=== PATIENT | female | born 1960 | race Caucasian/White ===

== ENCOUNTER 2022-07-17 00:52 | Observation (INO) | payer SELFPAY ==
[2022-07-17] VITALS (18 sets, daily range): BP systolic 126–165; BP diastolic 78–95; PULSE 98–124; RESP 16–25; TEMP 36.3–36.4; O2SAT 91–100; BMI 14.5
--- NOTE | 2022-07-17 | ECHO_ITS ---
Patient Info Name: Kamini Christina Age: 62 years : 1960 Gender: Female Ht: 62 in Wt: 79 lbs BSA: 1.24 m2 HR: 118 bpm BP: 153 / 89 mmHg Technical Quality: Good Exam Date: 07/17/2022 12:55 PM Exam Location: [facility] Patient Status: Outpatient Admit Date: 07/17/2022 Staff Ordering Physician: [employer] Specialist: Neida Nicholson RDCS Attending Provider: Luca Jensen MD Referring Physician: Donavan LOPEZ; Exam Type: CA echo doppler color flow Study Info Indications R06.02 - Shortness of breath Complete two-dimensional, color flow and Doppler transthoracic echocardiogram is performed. Summary 1. Complete two-dimensional, color flow and Doppler transthoracic echocardiogram is performed. 2. Left ventricular chamber dimension is mildly enlarged. 3. Left ventricular systolic function is globally mildly reduced, estimated at 45-50%. 4. There is mild concentric increased left ventricular wall thickness. 5. The left ventricular diastolic function is grade I diastolic dysfunction. 6. E/e' 16 is elevated. 7. Global longitudinal strain is abnormal at -10.3%. 8. Left atrial chamber dimension is moderately enlarged. 9. There is moderate mitral valve regurgitation. 10. There is trace tricuspid valve regurgitation. 11. Severe pulmonary hypertension, estimated pulmonary arterial systolic pressure is 60 mmHg. 12. Dilated inferior vena cava with >50% collapse upon inspiration consistent with elevated right atrial pressure, 10 mmHg. Left Ventricle E/e' 16 is elevated. Global longitudinal strain is abnormal at -10.3%. Left ventricular systolic function is globally mildly reduced, estimated at 45-50%. Left ventricular chamber dimension is mildly enlarged. There is mild concentric increased left ventricular wall thickness. The left ventricular diastolic function is grade I diastolic dysfunction. Right Ventricle Right ventricular systolic function is normal and with normal TAPSE 2.3 cm. Right ventricular chamber dimension is normal. Left Atria Left atrial chamber dimension is moderately enlarged. Right Atria Right atrial chamber dimension is normal. Aortic Valve The aortic valve is trileaflet. There is no aortic valve stenosis. There is no aortic valve regurgitation. Pulmonic Valve There is no pulmonic regurgitation. Mitral Valve There is no mitral valve stenosis. There is moderate mitral valve regurgitation. Tricuspid Valve There is trace tricuspid valve regurgitation. Severe pulmonary hypertension, estimated pulmonary arterial systolic pressure is 60 mmHg. Pericardium/Pleural There is no pericardial effusion. Inferior Vena Cava Dilated inferior vena cava with >50% collapse upon inspiration consistent with elevated right atrial pressure, 10 mmHg. Aorta The aortic root size at the sinus of Valsalva is normal. Left Ventricular Outflow Tract Name Value Normal LVOT 2D LVOT Diameter 1.9 cm LVOT Doppler LVOT Peak Gradient 4 mmHg LVOT Mean Gradient 2 mmHg LVOT VTI 15 cm
--- NOTE | ~2022-07-17 | CT_ITS ---
CT Scan of the Chest without Contrast: Clinical Indication: Shortness of breath Technique: Contiguous sections were acquired throughout the chest without intravenous contrast. Dose reduction technique was used on this scan by utilizing automated exposure control and iterative recon struction technique. The dose-length product (DLP) was 138.40 mGy-cm. Findings: There is no evidence of any significant mediastinal, hilar or axillary lymphadenopathy. Extensive cor onary artery calcifications are present. There are atherosclerotic calcifications of the aorta. No pe ricardial effusion. Small right pleural effusion present. No left pleural effusion. Severe emphysema present. No pulmonary nodule identified. Images through the upper abdomen reveal no abnormalities. Impression: Severe emphysema. Small right pleural effusion. Reviewed, dictated and finalized at location . ECTION SPECIALIST Impression: Severe emphysema. Small right pleural effusion.
--- NOTE | ~2022-07-17 | XR_ITS ---
Portable chest x-ray Comparison: 01/14/2016 Clinical History: Cough, shortness of breath Findings: There is no acute consolidation or pleural effusion. Probable COPD. Cardiomediastinal radha houette is stable. Bones and soft tissues are unremarkable. Impression: COPD pattern. No consolidation or pleural effusion. Reviewed, dictated and finalized at [facility]. ING ASSOCIATE Impression: COPD pattern. No consolidation or pleural effusion.
--- NOTE | 2022-07-17 00:58 | ECG_ITS ---
Measurements Intervals [place] Rate: 120 P: 85 DE: 128 QRS: 90 QRSD: 89 T: 83 QT: 316 QTc: 448 Interpretive Statements SINUS TACHYCARDIA LEFT VENTRICULAR HYPERTROPHY WITH SECONDARY REPOLARIZATION ABNORMALITY NONSPECIFIC ST & T-WAVE ABNORMALITY ABNORMAL RHYTHM ECG NO PREVIOUS ECG AVAILABLE FOR COMPARISON Electronically Signed On 07-17-2022 15:20:57 [employer] by Herb Avalos M.D.
--- NOTE | 2022-07-17 00:59 | ED.GENADULT ---
HPI - General Adult General Chief complaint: Shortness of Breath/Dyspnea Stated complaint: sob Source: EMS and RN notes reviewed History of Present Illness HPI narrative: Patient presents emergency department from home via EMS for shortness of breath. History is per patient as well as EMS. Patient states she has been feeling short of breath for the past 1 week states it worsened this evening. States she does have a history of COPD and currently smokes cigarettes does not require any home oxygen at home. Patient states this evening she became severely more short of breath when EMS arrived the patient was noted to be tripoding and satting in the low 80s. At that time she is given 125 mg of Solu-Medrol as well as an albuterol treatment and states she is feeling much better at this time. She denies any fevers or chills, chest pain abdominal pain nausea or vomiting. Related Data Allergies Allergy/AdvReac Type Severity Reaction Status Date / Time No Known Allergies Allergy Unverified 01/14/16 12:36 Review of Systems Review of Systems: Gen.: Denies fevers or chills ENT: Denies congestion Respiratory: See HPI CV: Denies chest pain or palpitations GI: Denies abdominal pain nausea, emesis or diarrhea Musculoskeletal: Denies back pain or muscle pain Neuro: Denies numbness, tingling, weakness or focal weakness Skin: Denies rash Except as documented, all other systems reviewed and negative [facility] Past Medical History Medical History (Updated 07/17/22 @ 02:49 by Jarad Lobo DO) COPD (chronic obstructive pulmonary disease) Social History Social History (Updated 07/17/22 @ 01:00 by Jarad Lobo DO) Smoking status: Current every day smoker Exam Narrative: APPEARANCE: Mild respiratory distress nontoxic, resting in bed EYES: EOMI HEENT: Normocephalic, atraumatic, OMM RESPIRATORY: Mild respiratory distress, wheezing in the bilateral upper lung edward with decreased breath sounds at bilateral lung bases no rhonchi CARDIOVASCULAR: Tachycardic and regular without murmurs rubs or gallops. ABDOMINAL: Soft, nontender, nondistended, no rebound or guarding MUSCULOSKELETAl: Moves all extremities. No clubbing, cyanosis or edema. NEURO: Awake and alert. Following commands, speech normal, no focal deficits SKIN:: Warm, dry. No rashes lesions or abrasions PSYCHIATRIC: Normal affect/mood, Course Course Emergency Course: Upon initial presentation patient been on BiPAP was weaned off and breathing treatment given is now on 3 L nasal cannula Discussed with Dr. Ye for hospitalist service presentation work-up agrees with admission at this time Discussed with patient and family results of workup and diagnosis. Discussed need for admission. Patient and family understand and agree to current treatment plan Vital Signs Vital signs: Vital Signs Pulse Rate 120 H 07/17/22 00:52 Pulse Rate 114 H 07/17/22 02:30 Respiratory Rate 20 07/17/22 02:30 Blood Pressure 154/90 H 07/17/22 02:30 Pulse Oximetry 98 07/17/22 02:30 Oxygen Delivery Nasal Cannula 07/17/22 01:25 Oxygen Flow Rate 3 07/17/22 01:25 Medical Decision Making MDM Narrative Medical decision making narrative: Patient presents for acute dyspnea and was noted to be tripoding with oxygen saturations in the 80s on room air given Solu-Medrol by EMS and breathing treatment initially placed on BiPAP on ED arrival the patient is given additional breathing treatment has been breathing better and weaned down to 3 L nasal cannula chest x-ray shows no acute process the patient does have a history of's tobacco use feel this is likely acute exacerbation of COPD will admit at this time with further inpatient evaluation Differential Diagnosis Differential Diagnosis: Differential diagnosis includes pneumonia COVID-19 pulmonary embolism COPD Vital Signs Vital Signs: Vital Signs Pulse Rate 120 H 07/17/22 00:52 Pulse Rate 114 H 07/17/22 02:30 Respi
[2022-07-17] MEDS: ALBUTEROL SULFATE NEB 2.5 MG/3 ML INH INHALATION (01:02)
[2022-07-17] MEDS: IPRATROPIUM BR 0.02% INH SOLN 0.5 MG/2.5 ML VIAL INHALATION ×4 (01:02→20:53)
[2022-07-17 01:13] LABS: Base Excess ABG -2.9 mEq/l (+/-2.0); Fractional Inspired Oxygen 100 %; HCO3 ABG 21.6 mEq/l (22.0-26.0); Methemoglobin ABG 0.3 %THb (0-1.5); Oxygen Content ABG 11.8 %vol (16.0-22.0); Oxygen Saturation ABG 98.5 % (95.0-100.0); Oxyhemoglobin 94.6 % THb (90.0-100.0); PCO2 ABG 35.7 mmHg (35.0-45.0); PO2 ABG 123.3 mmHg (80.0-100.0); PO2 FiO2 Ratio Arterial Blood 1.23 %; Reduced Hemoglobin 2.1 %THb (0-5.0); Site Drawn RIGHT RADIAL; Total Hemoglobin 8.7 g/dL (12.0-18.0); pH ABG 7.399 (7.350-7.450)
[2022-07-17 01:14] LABS: Device OTHER DEVICE; Modified Allen's Test Pass
[2022-07-17 01:55] LABS: Hematocrit 29.2 % (37.0-47.0); Hemoglobin 8.1 g/dL (12.0-15.0); Mean Corpuscular HGB Conc 27.7 g/dl (32-36); Mean Corpuscular Hemoglobin 19.3 pg (26-34); Mean Corpuscular Volume 69.5 fl (80-100); Mean Platelet Volume 9.8 fl (7.4-10.4); Platelet Count Result 242 k/mm3 (150-375); Red Cell Distribution Width 17.5 % (11.5-14.5); White Blood Count 9.2 K/mm3 (4.5-10.0)
[2022-07-17 02:06] LABS: Alanine Aminotransferase 28 U/L (6-35); Albumin Level 3.9 g/dL (3.5-5.1); Alkaline Phosphatase 89 U/L (38-126); Anion Gap 6 mmol/L (8-16); Aspartate Amino Transferase 45 U/L (14-36); Bilirubin,Total 0.4 mg/dL (0.2-1.3); Blood Urea Nitrogen 17 mg/dL (7-17); Calcium 8.4 mg/dL (8.4-10.2); Carbon Dioxide 27 mmol/L (22-30); Chloride 106 mmol/L (98-107); Estimated CRCL calculation 34 ml/min; Estimated Glomerular Filt Rate > 60; Glucose 117 mg/dL (65-110); Potassium 3.9 mmol/L (3.4-5.0); Sodium 139 mmol/L (137-145)
[2022-07-17 02:13] LABS: INR 1.1; Prothrombin Time 13.3 Seconds (11.1-14.7)
[2022-07-17 02:14] LABS: Partial Thromboplastin Time 28.2 SECONDS (22.3-36.8)
[2022-07-17 02:31] LABS: Influenza A QL RT-PCR Negative (Negative); Influenza B QL RT-PCR Negative (Negative); RSV RNA, RT-PCR Negative (Negative); SARS-CoV-2 RNA PCR Negative
[2022-07-17 03:32] LABS: Anisocytosis 1+ (NORMAL); Blastocytes 2 %; Eosinophils Absolute Manual 0.09 K/mm3 (0.02-0.5); Eosinophils Percent Manual 1 % (0-4); Lymphocytes Absolute Manual 2.57 K/mm3 (1.1-4.5); Metamyelocytes Percent 1 %; Neutrophils Percent Manual 68 % (46-73); Platelet Estimate Adequate (Adequate); Total Cells Counted 100
[2022-07-17 03:33] LABS: Hypersegmented Neutrophils Present; Hypochromasia 2+ (NORMAL); Macrocytosis 1+ (NORMAL); Microcytosis 2+ (NORMAL); Ovalocytes 1+ (NORMAL); Poikilocytosis 2+ (NORMAL); Schistocytes 1+ (NORMAL)
[2022-07-17 03:34] LABS: Stomatocytes 2+ (NORMAL)
[2022-07-17] MEDS: methylPREDNISolone SOD SUCC 125 MG VIAL 60 MG IV PUSH (06:03)
--- NOTE | 2022-07-17 09:45 | PM.IMHP ---
H&P: HPI History of Present Illness Date/Time: 07/17/22 0748 Chief Complaint: Patient is 62-year-old female with past medical history of COPD, emphysema CHF, GERD who presented to the ED with complaints of increased shortness of breath. Patient has been having issues for about a week with shortness of breath. She stated that it got worse due to her changes in cough. Patient stated that she always has a cough which is normally productive and she get anything up and spit out. However Wednesday of last week she was lying down on the couch and could not get anything up and coughed for 1.5 hours. She stated that she was so short of breath from coughing that and she was unable to catch her breath. She stated that continued for the next 4-5 nights until last night she felt like someone put a pillow over her face and was trying to suffocate her. She stated that she can gets some stuff up but she has to really work for it. She does endorse increased wheezes and becoming more dyspneic with mild activity. She does state whenever she gets sputum up that is white in color. She denies any chest pain, nausea, vomiting, diarrhea or constipation. She did state that she was having some night sweats and would wake up wet in the middle the night. She denies any appetite changes and states that she has a good appetite can eat anything that is better from over. She did state that when she was picked up yesterday that her oxygen saturations in the 80s she was unable to communicate or finish sentences and had been tripoding as if she sat up straight or lay down she could not breathe at all. She denies any lightheadedness, dizziness, falls, syncope. Patient is a smoker and she stated that she smoked 3 packs per day for 35 years however 9 years ago she moved in with her daughter and cut it back to 1 pack per day. Patient stated that she does not really do anything except for sit on the back porch and smokes cigarettes and playing games. She also stated that she know she needs to quit and she is going to quit. We did talk about many different ways of smoking cessation including Chantix, patches, distraction. Patient stated that she would really like to try patches because she is worried about the side effects about the things. Currently patient was able to go to room air and she is doing well with breathing. Chest x-ray did show COPD with no consolidation or pleural effusion. After review of the image patient does have elongated lungs and flattened diaphragm. CT indicated severe COPD and emphysema. Multiple bullae present in the CT as well. Patient is being admitted to the hospitalist service and observation Review of Systems Review of Systems: All systems reviewed & are unremarkable except as noted in HPI and below PMFSH Past Medical History Medical History (Updated 07/17/22 @ 14:29 by LAURA Conti) COPD (chronic obstructive pulmonary disease) Family History Family History (Updated 07/17/22 @ 04:54 by Anika Dickens RN) Other Unknown family medical history Social History Social History (Updated 07/17/22 @ 01:00 by Jarad Lobo DO) Smoking packs per day: 1 Smoking cigarettes per day: 20.0 Smoking status: Current every day smoker Tobacco type: cigarettes Second hand tobacco smoke exposure: Yes Alcohol intake: never Substance use: current Substance use type: marijuana Last use: 07/17/22 Lack of Transportation: No Lack of Food: Never True Current Housing: I Have Housing Concerned About Future Housing: No Difficulty Paying Gas/Electric Bills: No Difficulty Paying for Meds: No Currently Unemployed: No Education: High School Diploma/GED Difficulty w/ Childcare or Family Care: No Spiritual care concerns: No Meds Home Medications and Allergies Allergies Allergy/AdvReac Type Severity Reaction Status Date / Time No Known Allergies Allergy Unverified 01/14/16 12:36 Vital Signs Vital S
[2022-07-17 10:47] LABS: Immature Reticulocyte Fraction 25.4 % (3.0-15.9); Reticulocyte Hemoglobin Conten 19.1 pg (28.2-35.7); Reticulocyte Percent 1.84 % (0.7-4.3); Reticulocytes Absolute 0.08 B/L (32.2-175.7)
[2022-07-17 10:52] LABS: Transferrin 346 mg/dL (206-381)
[2022-07-17 12:22] LABS: Folic Acid 8.1 ng/mL (2.76->20)
[2022-07-17 13:18] LABS: Iron < 10 ug/dL (37-170)
[2022-07-17 13:46] LABS: Ferritin 4.95 ng/mL (11.1-264); Thyroid Stimulating Hormone Reflex 0.318 uIU/mL (0.465-4.68)
[2022-07-17] MEDS: AZITHROMYCIN 250 MG TABLET 500 MG PO (15:04)
[2022-07-17 15:14] LABS: Percent Iron Saturation < 2 % (20-50)
[2022-07-17] MEDS: FERROUS SULFATE 324 MG TABLET PO (16:34)
[2022-07-17] MEDS: ACETAMINOPHEN/ASPIRIN/CAFFEINE 250-250-65 MG TABLET 1 TABLET PO (20:36)
[2022-07-17 22:50] LABS: Free T4 Free Thyroxine Reflex 1.14 ng/dL (0.78-2.19)
[2022-07-17 23:33] LABS: Total Triiodothyronine (T3) 0.93 NG/ML (0.97-1.69)
[2022-07-18] VITALS (15 sets, daily range): BP systolic 123–146; BP diastolic 77–98; PULSE 100–121; RESP 14–20; TEMP 36.4–36.8; O2SAT 96–100
[2022-07-18] MEDS: IPRATROPIUM BR 0.02% INH SOLN 0.5 MG/2.5 ML VIAL INHALATION ×4 (03:00→21:19)
[2022-07-18 07:20] LABS: Basophils Percent Auto 0.3 % (0.2-1.2); Hematocrit 24.5 % (37.0-47.0); Immature Granulocyte Absolute 0.05 K/mm3 (0.00-0.031); Immature Granulocyte Percent A 0.5 % (0-0.5); Lymphocytes Absolute Auto 2.14 K/mm3 (0.9-3.2); Lymphocytes Percent Auto 19.8 % (18.3-44.2); Mean Corpuscular HGB Conc 28.2 g/dl (32-36); Mean Corpuscular Hemoglobin 19.7 pg (26-34); Mean Corpuscular Volume 69.8 fl (80-100); Mean Platelet Volume 10.3 fl (7.4-10.4); Monocytes Absolute Auto 0.7 K/mm3 (0.1-0.6); Monocytes Percent Auto 6.5 % (2.6-8.5); Neutrophils Absolute Auto 7.9 K/mm3 (1.3-6.7); Neutrophils Percent Auto 72.9 % (45.5-73.1); Platelet Count Result 204 k/mm3 (150-375); Red Blood Count 3.51 M/mm3 (4.2-5.4); Red Cell Distribution Width 17.3 % (11.5-14.5); White Blood Count 10.8 K/mm3 (4.5-10.0)
[2022-07-18 07:40] LABS: Alanine Aminotransferase 23 U/L (6-35); Albumin Level 3.4 g/dL (3.5-5.1); Alkaline Phosphatase 68 U/L (38-126); Anion Gap 6 mmol/L (8-16); Aspartate Amino Transferase 34 U/L (14-36); Bilirubin,Total 0.3 mg/dL (0.2-1.3); Blood Urea Nitrogen 19 mg/dL (7-17); Calcium 8.9 mg/dL (8.4-10.2); Carbon Dioxide 25 mmol/L (22-30); Chloride 104 mmol/L (98-107); Estimated CRCL calculation 35 ml/min; Estimated Glomerular Filt Rate > 60; Glucose 96 mg/dL (65-110); Potassium 3.5 mmol/L (3.4-5.0); Sodium 135 mmol/L (137-145)
[2022-07-18 07:50] LABS: Hemoglobin 6.9 g/dL (12.0-15.0)
[2022-07-18 07:51] LABS: Anisocytosis 1+ (NORMAL); Hypochromasia 1+ (NORMAL); Microcytosis 1+ (NORMAL); Platelet Estimate Adequate (Adequate); Schistocytes None Seen (NORMAL)
[2022-07-18] MEDS: FERROUS SULFATE 324 MG TABLET PO ×2 (08:47→18:41)
[2022-07-18] MEDS: AZITHROMYCIN 250 MG TABLET PO (08:47)
[2022-07-18] MEDS: predniSONE 20 MG TABLET 40 MG PO (08:47)
[2022-07-18 10:17] LABS: Hemoglobin 7.3 g/dL (12.0-15.0)
--- NOTE | 2022-07-18 11:00 | P.PNIM_ITS ---
Progress Note: A&P Assessment and Plan (1) COPD exacerbation: Code(s): J44.1 - Chronic obstructive pulmonary disease with (acute) exacerbation Status: Acute Assessment and Plan: * Chest x-ray indicates severe emphysema COPD * CT also indicates severe emphysema COPD * Patient complains of shortness of breath, dyspnea with activity, changes in cough and increased wheezes * Azithromycin continued * Steroids on board * Neb treatments * Spoke with pulmonology due to the patient have any insurance patient will probably need to go home on a nebulizer. * Supplemental oxygen is indicated * Wean to maintain saturations greater than 90% * Smoking cessation provided (2) Acute respiratory failure with hypoxia: Code(s): J96.01 - Acute respiratory failure with hypoxia Status: Acute Assessment and Plan: * Patient was noted to be tripoding, unable to complete full sentences, saturations in the 80s * Supplemental oxygen weaned to room air * ABG showed compensated respiratory acidosis * Continue to trend respiratory status * Wean supplemental oxygen to maintain saturation greater than 90% (3) Tachycardia: Code(s): R00.0 - Tachycardia, unspecified Status: Acute Assessment and Plan: * Heart rate noted to be in the low 100s * Change of ureteral to Xopenex * Add metoprolol 25mg PO * Trend heart rate * Adjust therapy as indicated (4) Protein calorie malnutrition: Code(s): E46 - Unspecified protein-calorie malnutrition Status: Acute Assessment and Plan: * Patient's BMI is 14.5 * Patient states she has a good appetite * Dietitian consult * Regular diet (5) Tobacco abuse: Code(s): Z72.0 - Tobacco use Status: Acute Assessment and Plan: * Patient states she smokes 1 pack a day * Smoking cessation provided for greater than 10 minutes * Will send patient home with a script for patches (6) Anemia: Code(s): D64.9 - Anemia, unspecified Status: Acute Assessment and Plan: * H&H 6.9/24.5, repeat 7.3/26.0 * One unit of PRBC given * Anemia labs <10, TIBC 481, %sat <2, ferritin 4.95, transferrin 346, B12 483, folate 8.1 * Supplement with oral iron b.i.d. * Trend H&H * Transfuse if hemoglobin less than 7 Plan Conversations with the daughter and the patient about further care treatment was given for greater than 20 minutes Time Spent With Patient Time: 55 minutes Subjective Date/time seen: 07/18/22 11:00 Interval history: 07/18/22 1100 Patient is doing ok. She just had some dry heaves, and stated that the food just is not good. She also stated that she is feeling ok and would like to go home. Labs were a bit off this morning, H/H was low. One unit of PRBCs given. Currently, she denies any chest pain, shortness of breath, diarrhea, or constipation. Spoke with her about her dietary habits. She explained that she does eat. Did give daughter the scripts to go and peanut picker her medications so she would have them if able to discharge today or tomorrow. 07/17/22? 0945 Patient is 62-year-old female with past medical history of COPD, emphysema CHF, GERD who presented to the ED with complaints of increased shortness of breath.? Patient has been having issues for about a week with shor
--- NOTE | 2022-07-18 11:00 | PM.IMPN ---
Progress Note: A&P Assessment and Plan (1) COPD exacerbation: Code(s): J44.1 - Chronic obstructive pulmonary disease with (acute) exacerbation Status: Acute Assessment and Plan: Chest x-ray indicates severe emphysema COPD CT also indicates severe emphysema COPD Patient complains of shortness of breath, dyspnea with activity, changes in cough and increased wheezes Azithromycin continued Steroids on board Neb treatments Spoke with pulmonology due to the patient have any insurance patient will probably need to go home on a nebulizer. Supplemental oxygen is indicated Wean to maintain saturations greater than 90% Smoking cessation provided (2) Acute respiratory failure with hypoxia: Code(s): J96.01 - Acute respiratory failure with hypoxia Status: Acute Assessment and Plan: Patient was noted to be tripoding, unable to complete full sentences, saturations in the 80s Supplemental oxygen weaned to room air ABG showed compensated respiratory acidosis Continue to trend respiratory status Wean supplemental oxygen to maintain saturation greater than 90% (3) Tachycardia: Code(s): R00.0 - Tachycardia, unspecified Status: Acute Assessment and Plan: Heart rate noted to be in the low 100s Change of ureteral to Xopenex Add metoprolol 25mg PO Trend heart rate Adjust therapy as indicated (4) Protein calorie malnutrition: Code(s): E46 - Unspecified protein-calorie malnutrition Status: Acute Assessment and Plan: Patient's BMI is 14.5 Patient states she has a good appetite Dietitian consult Regular diet (5) Tobacco abuse: Code(s): Z72.0 - Tobacco use Status: Acute Assessment and Plan: Patient states she smokes 1 pack a day Smoking cessation provided for greater than 10 minutes Will send patient home with a script for patches (6) Anemia: Code(s): D64.9 - Anemia, unspecified Status: Acute Assessment and Plan: H&H 6.9/24.5, repeat 7.3/26.0 One unit of PRBC given Anemia labs <10, TIBC 481, %sat <2, ferritin 4.95, transferrin 346, B12 483, folate 8.1 Supplement with oral iron b.i.d. Trend H&H Transfuse if hemoglobin less than 7 Plan Conversations with the daughter and the patient about further care treatment was given for greater than 20 minutes Time Spent With Patient Time: 55 minutes Subjective Date/time seen: 07/18/22 11:00 Interval history: 07/18/22 1100 Patient is doing ok. She just had some dry heaves, and stated that the food just is not good. She also stated that she is feeling ok and would like to go home. Labs were a bit off this morning, H/H was low. One unit of PRBCs given. Currently, she denies any chest pain, shortness of breath, diarrhea, or constipation. Spoke with her about her dietary habits. She explained that she does eat. Did give daughter the scripts to go and merchandise pickup/receiving associate her medications so she would have them if able to discharge today or tomorrow. 07/17/22? 0945 Patient is 62-year-old female with past medical history of COPD, emphysema CHF, GERD who presented to the ED with complaints of increased shortness of breath.? Patient has been having issues for about a week with shortness of breath.? She stated that it got worse due to her changes in cough.? Patient stated that she always has a cough which is normally productive and she get anything up and spit out.? However Wednesday of last week she was lying down on the couch and could not get anything up and coughed for 1.5 hours.? She stated that she was so short of breath from coughing that and she was unable to catch her breath.? She stated that continued for the next 4-5 nights until last night she felt like someone put a pillow over her face and was trying to suffocate her.? She stated that she can gets some stuff up but she h
[2022-07-18] MEDS: FUROSEMIDE INJ 40 MG/4 ML VIAL IV PUSH (15:28)
[2022-07-18] MEDS: ACETAMINOPHEN/ASPIRIN/CAFFEINE 250-250-65 MG TABLET 1 TABLET PO (15:28)
[2022-07-18] MEDS: SODIUM CHLORIDE 0.9% IV 250 ML 30 ML IV CONT (15:28)
[2022-07-18] MEDS: TUBING, BLOOD PLUM PUMP TUBING 1 EACH XX (16:42)
[2022-07-19 06:00] VITALS: BP 128/82; PULSE 112; RESP 18; TEMP 36.7; O2SAT 95
[2022-07-19 07:37] LABS: Basophils Percent Auto 0.2 % (0.2-1.2); Hemoglobin 9.4 g/dL (12.0-15.0); Immature Granulocyte Absolute 0.08 K/mm3 (0.00-0.031); Immature Granulocyte Percent A 0.5 % (0-0.5); Lymphocytes Percent Auto 17.6 % (18.3-44.2); Mean Corpuscular HGB Conc 29.4 g/dl (32-36); Mean Corpuscular Volume 71.6 fl (80-100); Mean Platelet Volume 10.1 fl (7.4-10.4); Monocytes Absolute Auto 0.8 K/mm3 (0.1-0.6); Monocytes Percent Auto 5.1 % (2.6-8.5); Neutrophils Absolute Auto 11.3 K/mm3 (1.3-6.7); Neutrophils Percent Auto 76.6 % (45.5-73.1); Platelet Count Result 246 k/mm3 (150-375); Red Blood Count 4.47 M/mm3 (4.2-5.4); Red Cell Distribution Width 18.3 % (11.5-14.5); White Blood Count 14.8 K/mm3 (4.5-10.0)
[2022-07-19 07:53] LABS: Alanine Aminotransferase 25 U/L (6-35); Albumin Level 3.9 g/dL (3.5-5.1); Alkaline Phosphatase 74 U/L (38-126); Anion Gap 6 mmol/L (8-16); Aspartate Amino Transferase 34 U/L (14-36); Bilirubin,Total 0.5 mg/dL (0.2-1.3); Blood Urea Nitrogen 18 mg/dL (7-17); Calcium 9.3 mg/dL (8.4-10.2); Carbon Dioxide 29 mmol/L (22-30); Chloride 101 mmol/L (98-107); Estimated CRCL calculation 32 ml/min; Estimated Glomerular Filt Rate > 60; Glucose 83 mg/dL (65-110); Magnesium 2.1 mg/dL (1.6-2.3); Potassium 3.3 mmol/L (3.4-5.0); Sodium 136 mmol/L (137-145)
[2022-07-19 08:18] LABS: Anisocytosis 1+ (NORMAL); Hypochromasia 1+ (NORMAL); Platelet Estimate Adequate (Adequate); Schistocytes None Seen (NORMAL)
[2022-07-19] MEDS: IPRATROPIUM BR 0.02% INH SOLN 0.5 MG/2.5 ML VIAL INHALATION (08:26)
[2022-07-19 08:27] VITALS: PULSE 110; RESP 16
[2022-07-19] MEDS: FERROUS SULFATE 324 MG TABLET PO (08:27)
[2022-07-19] MEDS: AZITHROMYCIN 250 MG TABLET PO (08:27)
[2022-07-19] MEDS: predniSONE 20 MG TABLET 40 MG PO (08:27)
[2022-07-19 08:29] VITALS: PULSE 110; RESP 16; O2SAT 95
[2022-07-19 08:38] VITALS: PULSE 113; RESP 16
[2022-07-19 10:41] VITALS: PULSE 114
[2022-07-19] MEDS: METOPROLOL TARTRATE 25 MG TABLET PO (10:41)
[2022-07-19] MEDS: IRON SUCROSE COMPLEX 500 MG in SODIUM CHLORIDE 0.9% IV 250 ML 78.57 MG IVPB (10:44)
[2022-07-19] MEDS: FUROSEMIDE INJ 40 MG/4 ML VIAL IV PUSH (10:44)
--- NOTE | 2022-07-19 10:45 | PM.DS ---
DS: Admitting Diagnosis Discharge Date 07/19/2022 1045 Admitting Diagnosis COPD exacerbation, Symptomatic anemia DS: Discharge Diagnosis Discharge Diagnosis (1) COPD exacerbation: Code(s): J44.1 - Chronic obstructive pulmonary disease with (acute) exacerbation Status: Acute Assessment and Plan: Chest x-ray indicates severe emphysema COPD CT also indicates severe emphysema COPD Patient complains of shortness of breath, dyspnea with activity, changes in cough and increased wheezes Azithromycin continued Steroids on board Neb treatments Spoke with pulmonology due to the patient have any insurance patient will probably need to go home on a nebulizer. Supplemental oxygen is indicated Wean to maintain saturations greater than 90% Smoking cessation provided (2) Acute respiratory failure with hypoxia: Code(s): J96.01 - Acute respiratory failure with hypoxia Status: Acute Assessment and Plan: Patient was noted to be tripoding, unable to complete full sentences, saturations in the 80s Supplemental oxygen provided, wean to room air ABG showed compensated respiratory acidosis Continue to trend respiratory status Wean supplemental oxygen to maintain saturation greater than 90% (3) Tachycardia: Code(s): R00.0 - Tachycardia, unspecified Status: Acute Assessment and Plan: Heart rate noted to be in the low 100s Change of ureteral to Xopenex Metoprolol 25 mg p.o. b.i.d. Trend heart rate Adjust therapy as indicated (4) Protein calorie malnutrition: Code(s): E46 - Unspecified protein-calorie malnutrition Status: Acute Assessment and Plan: Patient's BMI is 14.5 Patient states she has a good appetite Dietitian consult Regular diet (5) Tobacco abuse: Code(s): Z72.0 - Tobacco use Status: Acute Assessment and Plan: Patient states she smokes 1 pack a day Smoking cessation provided for greater than 10 minutes Will send patient home with a script for patches (6) Anemia: Code(s): D64.9 - Anemia, unspecified Status: Acute Assessment and Plan: H&H 6.9/24.5, repeat 7.3/26.0 H&H today is 9.4/32.0 One unit of PRBC given 500 mg IV iron once Anemia labs <10, TIBC 481, %sat <2, ferritin 4.95, transferrin 346, B12 483, folate 8.1 Supplement with oral iron b.i.d. Trend H&H Transfuse if hemoglobin less than 7 DS: Summary Hospital Course Hospital Course: Patient is 62 female with a past medical history of COPD, emphysema, CHF, GERD who presented to the ED with complaints of increased shortness of breath and dyspnea. Patient did endorse a cough for which was unproductive. Patient also endorses being heavy smoker. Upon arrival patient was noted to be 80s in the edward tripoding and was unable to speak. Patient was given supplemental oxygen which has been weaned to room air at this time. Patient was started on a azithromycin and steroids as the chest x-ray indicated severe emphysema COPD, CT indicated same findings. Spoke with pulmonology who recommended the patient be placed on nebulizer medications until she has health insurance. Patient also was noted to be tachycardic which could be related to the of ureteral which was changes level of ureteral however she is still in the low 100s and metoprolol was added to her regimen. Anemia is also noted and anemia labs are showing iron deficiency anemia. Patient did drop below 7 and did receive 1 unit of packed red blood cells along with 1 iron transfusion. Currently H&H is stable at 9.4 and 32.0. Currently patient is stable for discharge for labs and vital signs. Smoking cessation education has been given multiple times throughout the stay. Patient's daughter has been present through multiple conversations of care. Patient will need good follow-up care with her p
--- NOTE | 2022-07-19 10:45 | P.DS_ITS ---
DS: Admitting Diagnosis Discharge Date 07/19/2022 1045 Admitting Diagnosis COPD exacerbation, Symptomatic anemia DS: Discharge Diagnosis Discharge Diagnosis (1) COPD exacerbation: Code(s): J44.1 - Chronic obstructive pulmonary disease with (acute) exacerbation Status: Acute Assessment and Plan: * Chest x-ray indicates severe emphysema COPD * CT also indicates severe emphysema COPD * Patient complains of shortness of breath, dyspnea with activity, changes in cough and increased wheezes * Azithromycin continued * Steroids on board * Neb treatments * Spoke with pulmonology due to the patient have any insurance patient will probably need to go home on a nebulizer. * Supplemental oxygen is indicated * Wean to maintain saturations greater than 90% * Smoking cessation provided (2) Acute respiratory failure with hypoxia: Code(s): J96.01 - Acute respiratory failure with hypoxia Status: Acute Assessment and Plan: * Patient was noted to be tripoding, unable to complete full sentences, saturations in the 80s * Supplemental oxygen provided, wean to room air * ABG showed compensated respiratory acidosis * Continue to trend respiratory status * Wean supplemental oxygen to maintain saturation greater than 90% (3) Tachycardia: Code(s): R00.0 - Tachycardia, unspecified Status: Acute Assessment and Plan: * Heart rate noted to be in the low 100s * Change of ureteral to Xopenex * Metoprolol 25 mg p.o. b.i.d. * Trend heart rate * Adjust therapy as indicated (4) Protein calorie malnutrition: Code(s): E46 - Unspecified protein-calorie malnutrition Status: Acute Assessment and Plan: * Patient's BMI is 14.5 * Patient states she has a good appetite * Dietitian consult * Regular diet (5) Tobacco abuse: Code(s): Z72.0 - Tobacco use Status: Acute Assessment and Plan: * Patient states she smokes 1 pack a day * Smoking cessation provided for greater than 10 minutes * Will send patient home with a script for patches (6) Anemia: Code(s): D64.9 - Anemia, unspecified Status: Acute Assessment and Plan: * H&H 6.9/24.5, repeat 7.3/26.0 * H&H today is 9.4/32.0 * One unit of PRBC given * 500 mg IV iron once * Anemia labs <10, TIBC 481, %sat <2, ferritin 4.95, transferrin 346, B12 483, folate 8.1 * Supplement with oral iron b.i.d. * Trend H&H * Transfuse if hemoglobin less than 7 DS: Summary Hospital Course Hospital Course: Patient is 62 female with a past medical history of COPD, emphysema, CHF, GERD who presented to the ED with complaints of increased shortness of breath and dyspnea. Patient did endorse a cough for which was unproductive. Patient also endorses being heavy smoker. Upon arrival patient was noted to be 80s in the edward tripoding and was unable to speak. Patient was given supplemental oxygen which has been weaned to room air at this time. Patient was started on a azithromycin and steroids as the chest x-ray indicated severe emphysema COPD, CT indicated same findings. Spoke with pulmonology who recommended the patient be placed on nebulizer medications until she has health insurance. Patient also was noted to be tachycardic which could be related to the of ureter
[2022-07-19 11:44] LABS: NT Pro B Type Natriuretic Pept 4710 pg/mL (19.9-100)
[2022-07-19 14:00] VITALS: BP 115/72; PULSE 101; RESP 20; TEMP 36.7; O2SAT 95
== END 2022-07-19 14:45 | disposition home or self-care (01) ==
LOC: ANHED 02:49 → ANH3MEDSUR 12:24
PROVIDERS: Nurse Practitioner; Admitting Provider Internal Medicine; Emergency Provider Emergency Medicine; PCP Physician Assistant; Visit Provider Chiropractor
DX: J44.1 Chronic obstructive pulmonary disease with (acute) exacerbation (principal); J96.01 Acute respiratory failure with hypoxia; R00.0 Tachycardia, unspecified; E46 Unspecified protein-calorie malnutrition; Z68.1 Body mass index [BMI] 19.9 or less, adult; F17.210 Nicotine dependence, cigarettes, uncomplicated; D64.9 Anemia, unspecified; J90 Pleural effusion, not elsewhere classified; Z20.822 Contact with and (suspected) exposure to COVID-19; I34.0 Nonrheumatic mitral (valve) insufficiency; I27.20 Pulmonary hypertension, unspecified; R94.31 Abnormal electrocardiogram [ECG] [EKG]; I50.9 Heart failure, unspecified; K21.9 Gastro-esophageal reflux disease without esophagitis; F12.90 Cannabis use, unspecified, uncomplicated
CPT/HCPCS: 36415; 36430; 36600; 71045; 71250; 80053; 82375; 82607; 82728; 82746; 82805; 83050; 83540; 83550; 83735; 83880; 84439; 84443; 84466; 84480; 85014; 85018; 85025; 85046; 85610; 85730; 86850; 86900; 86901; 86923; 87040; 87637; 93005; 93306; 94640; 99284; A9270; J1756; J1940; J2930; J7050; J7512; P9016

== ENCOUNTER 2023-02-09 11:16 | Emergency (ER) | payer SELFPAY ==
[2023-02-09] VITALS (20 sets, daily range): BP systolic 147–185; BP diastolic 70–95; PULSE 60–72; RESP 12–20; TEMP 37.1; O2SAT 98–99
--- NOTE | ~2023-02-09 | CT_ITS ---
EXAMINATION: CTA BRAIN/CAROTID DATE: 02/09/2023 13:05 INDICATION: Strokelike symptoms TECHNIQUE: Computed tomographic angiography (CTA) of the head and neck was performed with 100 mL Omni paque-350 intravenous contrast. Multiplanar reconstructions and maximum intensity projection 3D-recon structions of the carotid arteries and of the intracranial arteries were created by the technologist on a separate workstation. Precontrast CT of the head was also obtained. Automated exposure control and iterative reconstruction technique were employed.The dose-length product was 1520.65 mGy-cm. COMPARISON: Brain MR dated 03/23/2006 FINDINGS: Carotid arteries: Atherosclerotic calcific disease without hemodynamically significant stenosis of the normal caliber a ortic arch and along the great vessels arising from the arch. There is small amount of atheroscleroti c plaque with 0% stenosis of the right carotid bulb relative to normal distal artery lumen diameter ( NASCET criteria). There is no evident atherosclerotic plaque with 0% stenosis of the left carotid bul b relative to normal distal artery lumen diameter. Severe emphysema. Cervical soft tissues are unrema rkable. Moderate cervical spondylosis. Head: Small old lacunar infarcts at the bilateral caudate nuclei, the left peritrigonal white matter and ri ght cerebellar hemisphere. No acute intracranial hemorrhage, acute infarction or abnormal extra axial fluid collection. Ventricles are normal and symmetric. No mass/mass effect. No abnormally enhancing brain lesions identified. The orbits, paranasal sinuses and mastoid air cells are normal. Intracranial arteries Atherosclerotic plaque without hemodynamically significant stenosis at the bilateral carotid siphons. There is no hemodynamically significant stenosis in the vertebral, basilar and internal carotid mikel kenneth. Vertebral arteries are codominant. There are no aneurysms identified. Both A1 and P1 segments are patent. The right P1 segment is diminutive with majority of flow to the right posterior circulati on arising from the right internal carotid artery via a patent right posterior commuting artery. Ther e is also a patent anterior to indicating artery. Cerebral arterial arborization appears symmetric. IMPRESSION: 1. 0% stenosis of the right and left carotid bulbs relative to normal distal artery lumen diameter (N ASCET criteria). 2. 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 No acute intracranial process or abnormally enhancing brain lesions. 3. Mild atherosclerotic plaque at the bilateral carotid siphons. Otherwise unremarkable cerebral CT a ngiogram with no hemodynamic significant stenosis or aneurysm. Reviewed, dictated and finalized at location A. IMPRESSION: 1. 0% stenosis of the right and left carotid bulbs relative to normal distal ar samantha lumen diameter (NASCET criteria). 2. Small old lacunar infarcts at the bilateral caudate nuclei, left peritrigona l white matter and right cerebellar hemisphere. No acute intracranial process o r abnormally enhancing brain lesions. 3. Mild atherosclerotic plaque at the bilateral carotid siphons. Otherwise unre markable cerebral CT angiogram with no hemodynamic significant stenosis or aneu rysm.
--- NOTE | ~2023-02-09 | XR_ITS ---
EXAMINATION: XR chest 1V portable INDICATION: Weakness TECHNIQUE: Portable AP chest at 1325 hours COMPARISON: 07/17/2022 FINDINGS: The lungs are hyperinflated but free of acute opacities. No pleural effusion or pneumothora x. The cardiomediastinal silhouette is normal. Contrast from earlier CT examination partially opacifi es the renal collecting systems. IMPRESSION: 1. Hyperinflation without acute cardiopulmonary abnormality. Reviewed, dictated and finalized at location L.
--- NOTE | 2023-02-09 12:07 | ECG_ITS ---
Measurements Intervals [place] Rate: 58 P: 69 OK: 111 QRS: 76 QRSD: 91 T: 57 QT: 423 QTc: 419 Interpretive Statements SINUS BRADYCARDIA WITH SHORT OK INTERVAL DELAYED PRECORDIAL R/S TRANSITION BORDERLINE ST-T WAVE ABNORMALITY- INF/HIGH LAT LEADS BASELINE ARTIFACT- I, III, AVR, AVL, AVF, V2 BORDERLINE ECG COMPARED TO ECG 07/17/2022 01:54:17 SINUS BRADYCARDIA NOW PRESENT Electronically Signed On 02-09-2023 13:00:17 CDT by Bennett Moser D.O.
[2023-02-09 12:29] LABS: Basophils Percent Auto 0.5 % (0.2-1.2); Eosinophils Absolute Auto 0.2 K/mm3 (0-0.3); Eosinophils Percent Auto 1.7 % (0-4.4); Hematocrit 45.7 % (37.0-47.0); Hemoglobin 14.7 g/dL (12.0-15.0); Immature Granulocyte Absolute 0.03 K/mm3 (0.00-0.031); Immature Granulocyte Percent A 0.3 % (0-0.5); Lymphocytes Absolute Auto 2.75 K/mm3 (0.9-3.2); Lymphocytes Percent Auto 31.2 % (18.3-44.2); Mean Corpuscular HGB Conc 32.2 g/dl (32-36); Mean Corpuscular Hemoglobin 31.7 pg (26-34); Mean Corpuscular Volume 98.5 fl (80-100); Mean Platelet Volume 9.8 fl (7.4-10.4); Monocytes Absolute Auto 0.5 K/mm3 (0.1-0.6); Monocytes Percent Auto 5.9 % (2.6-8.5); Neutrophils Absolute Auto 5.3 K/mm3 (1.3-6.7); Neutrophils Percent Auto 60.4 % (45.5-73.1); Platelet Count Result 239 k/mm3 (150-375); Red Blood Count 4.64 M/mm3 (4.2-5.4); Red Cell Distribution Width 13.2 % (11.5-14.5); White Blood Count 8.8 K/mm3 (4.5-10.0)
[2023-02-09 12:35] LABS: Glucose Point of Care 79 mg/dl (65-105)
[2023-02-09 12:39] LABS: INR 0.9; Prothrombin Time 12.7 Seconds (11.1-14.7)
[2023-02-09 12:40] LABS: Alanine Aminotransferase 15 U/L (6-35); Albumin Level 4.1 g/dL (3.5-5.1); Alkaline Phosphatase 63 U/L (38-126); Anion Gap 9 mmol/L (8-16); Aspartate Amino Transferase 29 U/L (14-36); Bilirubin,Total 0.4 mg/dL (0.2-1.3); Blood Urea Nitrogen 16 mg/dL (7-17); Calcium 9.1 mg/dL (8.4-10.2); Carbon Dioxide 27 mmol/L (22-30); Chloride 104 mmol/L (98-107); Estimated CRCL calculation 33 ml/min; Estimated Glomerular Filt Rate > 60; Glucose 86 mg/dL (65-110); Partial Thromboplastin Time 28.4 SECONDS (22.3-36.8); Potassium 3.5 mmol/L (3.4-5.0); Sodium 140 mmol/L (137-145)
[2023-02-09 12:52] LABS: Troponin I < 0.012 ng/mL (0.000-0.034)
--- NOTE | 2023-02-09 14:09 | ED.GENADULT ---
HPI - General Adult General Chief complaint: Unspecified Stated complaint: TIA Time Seen by Provider: 02/09/23 12:22 History of Present Illness HPI narrative: 62-year-old female present emergency department for evaluation of left-sided facial droop. Patient states she has had approximately 15 TIAs over the last 20 years. Patient does take a daily aspirin. Patient states on Wednesday she had onset of left-sided facial droop and some left hand weakness. Patient states over the course of the last week the symptoms have resolved. Related Data Allergies Allergy/AdvReac Type Severity Reaction Status Date / Time No Known Allergies Allergy Verified 02/09/23 12:41 Review of Systems Review of Systems: All systems reviewed & are unremarkable except as noted in HPI and below PMFSH Past Medical History Medical History (Updated 02/10/23 @ 00:00 by Haydee Sanchez) COPD (chronic obstructive pulmonary disease) Family History Family History (Updated 07/17/22 @ 04:54 by Anika Dickens RN) Other Unknown family medical history Social History Social History (Updated 07/17/22 @ 01:00 by Jarad Lobo DO) Smoking packs per day: 1 Smoking cigarettes per day: 20.0 Smoking status: Current every day smoker Tobacco type: cigarettes Second hand tobacco smoke exposure: Yes Alcohol intake: never Substance use: current Substance use type: marijuana Last use: 07/17/22 Lack of Transportation: No Lack of Food: Never True Current Housing: I Have Housing Concerned About Future Housing: No Difficulty Paying Gas/Electric Bills: No Difficulty Paying for Meds: No Currently Unemployed: No Education: High School Diploma/GED Difficulty w/ Childcare or Family Care: No Spiritual care concerns: No Exam Narrative: APPEARANCE: Well appearing, no pain, no distress, well-nourished. HEAD: normocephalic, atraumatic. EYES: PERRLA/EOMI, conjunctivae clear. NOSE: Normal no drainage EARS:TMS clear with good light reflex. THROAT: Pharynx clear, no exudate. NECK: Supple. No adenopathy, no masses. RESPIRATORY: Airway patent, respirations nonlabored. Clear to auscultation bilaterally, no rales, rhonchi, wheezing. CARDIOVASCULAR: Regular rate and rhythm without murmurs rubs or gallops. ABDOMINAL: Soft, nontender, nondistended, normal bowel sounds MUSCULOSKELETAL: Moves all extremities. Strength/ROM intact, No edema, No calf tenderness. NEURO: Alert. Cranial nerves II through XII intact. Good gait. Good coordination SKIN: Warm, dry. Normal Color Course Course Emergency Course: 62-year-old female presented ED for evaluation of left-sided facial droop and left hand weakness. Patient states all her symptoms are resolved. Patient was afebrile with no leukocytosis and stable CMP. Head CT showed no acute abnormalities. Patient was offered admission for further TIA/CVA work-up but patient declined and prefers to have outpatient follow-up. Patient was alert oriented and appropriate. Patient was aware of the risks of refusing admission and patient states if her symptoms return that she will return. Vital Signs Vital signs: Vital Signs Temperature 98.8 F 02/09/23 11:59 Pulse Rate 67 02/09/23 11:59 Respiratory Rate 16 02/09/23 11:59 Blood Pressure 147/80 H 02/09/23 11:59 Pulse Oximetry 98 02/09/23 11:59 Oxygen Delivery Room Air 02/09/23 11:59 Temperature 98.8 F 02/09/23 11:59 Pulse Rate 68 02/09/23 15:23 Respiratory Rate 18 02/09/23 15:23 Blood Pressure 176/95 H 02/09/23 15:23 Pulse Oximetry 98 02/09/23 15:23 Oxygen Delivery Room Air 02/09/23 11:59 Medical Decision Making Differential Diagnosis Differential Diagnosis: TIA, CVA, seizure Vital Signs Vital Signs: Vital Signs Temperature 98.8 F 02/09/23 11:59 Pulse Rate 67 02/09/23 11:59 Respiratory Rate 16 02/09/23 11:59 Blood Pressure 147/80 H 02/09/23 11:59 Pulse Oximetry 98 02/09/23 11
== END 2023-02-09 15:24 | disposition home or self-care (01) ==
PROVIDERS: Emergency Provider Emergency Medicine; PCP Physician Assistant
DX: G45.9 Transient cerebral ischemic attack, unspecified (principal); Z79.82 Long term (current) use of aspirin; J44.9 Chronic obstructive pulmonary disease, unspecified; F17.210 Nicotine dependence, cigarettes, uncomplicated
CPT/HCPCS: 36415; 70496; 70498; 71045; 80053; 82948; 84484; 85025; 85610; 85730; 93005; 99284; Q9967

== ENCOUNTER 2023-05-21 10:07 | Emergency (ER) | payer SELFPAY ==
[2023-05-21] VITALS (7 sets, daily range): BP systolic 138–175; BP diastolic 70–95; PULSE 66–87; RESP 16–18; TEMP 36.4–36.6; O2SAT 98
--- NOTE | ~2023-05-21 | CT_ITS ---
EXAMINATION: CTA brain carotid DATE: 05/21/2023 11:56 INDICATION: Transient ischemic attack. Dyskinesia. TECHNIQUE: Computed tomographic angiography (CTA) of the head was performed without and with 100 mL O mnipaque-350 intravenous contrast. CTA of the neck was performed with intravenous contrast. Automated exposure control and iterative reconstruction technique were employed. The dose-length product was 1 481.76 mGy-cm. Maximum intensity projection and volume rendered 3D-reconstructions were created by juana rodriguez technologist on a separate workstation. COMPARISON: CTA head and neck 02/09/2023 FINDINGS: HEAD CTA: There is an old infarct in right cerebellum. There is an old infarct in the left parietal d eep white matter. There are old infarcts in the bilateral caudate nuclei. There is no intracranial he morrhage, acute infarction, or abnormal intracranial mass lesion. The ventricles are normal in size. The orbits are normal. The paranasal sinuses are clear. The mastoid air cells are normal. The vertebr al arteries are codominant. There is no significant stenosis of basilar artery or the posterior cereb ral arteries. The posterior communicating arteries are normal. There is no significant stenosis of in tracranial internal carotid arteries or anterior or middle cerebral arteries. Anterior communicating artery is normal. There is no aneurysm. NECK CTA: There is severe emphysema. There are no pathologically enlarged lymph nodes. There is no si gnificant stenosis of the vertebral arteries. There is mild plaque in the proximal internal carotid a rteries. There is 0% stenosis of the proximal right internal carotid artery relative to normal distal artery lumen diameter (NASCET criteria). There is 0% stenosis of the proximal left internal carotid artery relative to normal distal artery lumen diameter. There is severe cervical spondylosis. IMPRESSION: 1. 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 2. No aneurysm or significant intracranial arterial stenosis. 3. 0% stenosis of the proximal internal carotid arteries relative to normal distal artery lumen diame ters (NASCET criteria). Reviewed, dictated and finalized at location A. NSING AND REGISTRATION DIRECTOR IMPRESSION: 1. 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 2. No aneurysm or significant intracranial arterial stenosis. 3. 0% stenosis of the proximal internal carotid arteries relative to normal dis edilson artery lumen diameters (NASCET criteria).
--- NOTE | 2023-05-21 10:45 | ED.GENADULT ---
HPI - General Adult General Chief complaint: Unspecified Stated complaint: involuntary movements Time Seen by Provider: 05/21/23 10:20 History of Present Illness HPI narrative: 62 old female presenting to the emergency department for evaluation worsening involuntary movements. Patient had a TIA in January and has had worsening dyskinesias since then. Patient does have follow-up scheduled with [facility] at Jul 05. Patient was doing well last night when family saw her in this morning patient was worsening of movements. Related Data Allergies Allergy/AdvReac Type Severity Reaction Status Date / Time No Known Allergies Allergy Verified 02/09/23 12:41 Review of Systems Review of Systems: All systems reviewed & are unremarkable except as noted in HPI and below PMFSH Past Medical History Medical History (Updated 05/21/23 @ 13:00 by Pratik Arnold MD) COPD (chronic obstructive pulmonary disease) Family History Family History (Updated 07/17/22 @ 04:54 by Anika Dickens RN) Other Unknown family medical history Social History Social History (Updated 07/17/22 @ 01:00 by Jarad Lobo DO) Smoking packs per day: 1 Smoking cigarettes per day: 20.0 Smoking status: Current every day smoker Tobacco type: cigarettes Second hand tobacco smoke exposure: Yes Alcohol intake: never Substance use: current Substance use type: marijuana Last use: 07/17/22 Lack of Transportation: No Lack of Food: Never True Current Housing: I Have Housing Concerned About Future Housing: No Difficulty Paying Gas/Electric Bills: No Difficulty Paying for Meds: No Currently Unemployed: No Education: High School Diploma/GED Difficulty w/ Childcare or Family Care: No Spiritual care concerns: No Exam Narrative: APPEARANCE: Well appearing, no pain, no distress, well-nourished. HEAD: normocephalic, atraumatic. EYES: PERRLA/EOMI, conjunctivae clear. NOSE: Normal no drainage EARS:TMS clear with good light reflex. THROAT: Pharynx clear, no exudate. NECK: Supple. No adenopathy, no masses. RESPIRATORY: Airway patent, respirations nonlabored. Clear to auscultation bilaterally, no rales, rhonchi, wheezing. CARDIOVASCULAR: Regular rate and rhythm without murmurs rubs or gallops. ABDOMINAL: Soft, nontender, nondistended, normal bowel sounds MUSCULOSKELETAL: Moves all extremities. Strength/ROM intact, No edema, No calf tenderness. NEURO: Alert. Cranial nerves II through XII intact. Grossly intact. No focal deficit SKIN: Warm, dry. Normal Color Course Course Emergency Course: [age] year old female presenting to the ED for evaluation of dyskinesia. Patient was treated with Benadryl and Ativan and patient has dyskinesia symptoms were resolved. Patient was able to ambulate in the emergency department at her baseline. Patient's imaging was negative. Patient is afebrile no leukocytosis and a stable hemoglobin. No significant abnormalities on her CMP. Patient and family were updated on the results of the workup and plan for close follow-up. They are to do have follow-up scheduled with neuro. Patient and family comfortable with plan for discharge and close follow-up. Patient will be provided some Ativan p.r.n. for home. Vital Signs Vital signs: Vital Signs Pulse Rate 69 05/21/23 10:12 Respiratory Rate 18 05/21/23 10:12 Blood Pressure 175/95 H 05/21/23 10:12 Pulse Oximetry 98 05/21/23 10:12 Temperature 97.8 F 05/21/23 13:24 Pulse Rate 72 05/21/23 13:24 Respiratory Rate 16 05/21/23 13:24 Blood Pressure 138/70 05/21/23 13:24 Pulse Oximetry 98 05/21/23 13:24 Oxygen Delivery Room Air 05/21/23 10:16 Medical Decision Making Differential Diagnosis Differential Diagnosis: TA, CVA, type dyskinesia, anxiety Vital Signs Vital Signs: Vital Signs Pulse Rate 69 05/21/23 10:12 Respiratory Rate 18 05/21/23 10:12 Blood Pressure 175/95 H
[2023-05-21] MEDS: LORazepam INJ (*CRX) 2 MG/ML VIAL 0.5 MG IV PUSH (11:02)
[2023-05-21] MEDS: diphenhydrAMINE HCl INJ 50 MG/ML VIAL 25 MG IV PUSH (11:02)
[2023-05-21 11:17] LABS: Basophils Absolute Auto 0.1 K/mm3 (0.0-0.1); Basophils Percent Auto 0.6 % (0.2-1.2); Eosinophils Absolute Auto 0.2 K/mm3 (0-0.3); Eosinophils Percent Auto 2.5 % (0-4.4); Hematocrit 41.6 % (37.0-47.0); Immature Granulocyte Absolute 0.05 K/mm3 (0.00-0.031); Immature Granulocyte Percent A 0.6 % (0-0.5); Lymphocytes Absolute Auto 2.29 K/mm3 (0.9-3.2); Lymphocytes Percent Auto 26.9 % (18.3-44.2); Mean Corpuscular HGB Conc 31.3 g/dl (32-36); Mean Corpuscular Hemoglobin 30.7 pg (26-34); Mean Corpuscular Volume 98.3 fl (80-100); Mean Platelet Volume 9.6 fl (7.4-10.4); Monocytes Absolute Auto 0.5 K/mm3 (0.1-0.6); Monocytes Percent Auto 5.9 % (2.6-8.5); Neutrophils Absolute Auto 5.4 K/mm3 (1.3-6.7); Neutrophils Percent Auto 63.5 % (45.5-73.1); Platelet Count Result 235 k/mm3 (150-375); Red Blood Count 4.23 M/mm3 (4.2-5.4); Red Cell Distribution Width 13.4 % (11.5-14.5); White Blood Count 8.5 K/mm3 (4.5-10.0)
[2023-05-21 11:26] LABS: Alanine Aminotransferase 14 U/L (6-35); Albumin Level 3.6 g/dL (3.5-5.1); Alkaline Phosphatase 83 U/L (38-126); Anion Gap 7 mmol/L (8-16); Aspartate Amino Transferase 28 U/L (14-36); Bilirubin,Total 0.3 mg/dL (0.2-1.3); Blood Urea Nitrogen 16 mg/dL (7-17); Calcium 8.8 mg/dL (8.4-10.2); Carbon Dioxide 25 mmol/L (22-30); Chloride 107 mmol/L (98-107); Estimated CRCL calculation 32 ml/min; Estimated Glomerular Filt Rate > 60; Glucose 79 mg/dL (65-110); Potassium 4.2 mmol/L (3.4-5.0); Sodium 139 mmol/L (137-145)
[2023-05-21 11:35] LABS: Partial Thromboplastin Time 56.7 SECONDS (22.3-36.8)
[2023-05-21 11:40] LABS: INR 0.9; Prothrombin Time 12.5 Seconds (11.1-14.7)
--- NOTE | 2023-05-21 12:33 | PC.NURSE ---
walked pt to the bathroom at this time. pt was a little unsteady at times and needed a hand but overall managed to ambulate to bathroom
--- NOTE | 2023-05-21 12:39 | PC.NURSE ---
lunch tray ordered at this time
[2023-05-21 12:43] LABS: Appearance Urine Clear (Clear); Bilirubin Urine Negative (Negative); Blood Urine Negative (Negative); Color Urine Yellow (Yellow); Glucose Urine UA Negative (Negative); Ketones Urine Negative (Negative); Leukocyte Esterase Ur Negative LEU/UL (Negative); Nitrate Urine Negative (Negative); Protein Urine Negative (Negative); Specific Grav Ur 1.025 (1.001-1.035); Urobilinogen Urine 0.2 mg/dL (<2.0); pH Urine 5.5 (5.0-9.0)
[2023-05-21 12:55] LABS: Add Urine Microscopic? NO
--- NOTE | 2023-05-21 13:07 | PC.NURSE ---
lunch tray given to pt at 1300
== END 2023-05-21 13:25 | disposition home or self-care (01) ==
PROVIDERS: Emergency Provider Emergency Medicine; PCP Physician Assistant
DX: G24.9 Dystonia, unspecified (principal); J44.9 Chronic obstructive pulmonary disease, unspecified; Z86.73 Personal history of transient ischemic attack (TIA), and cerebral infarction without residual deficits
CPT/HCPCS: 36415; 70496; 70498; 80053; 81003; 85025; 85610; 85730; 96374; 96375; 99284; J1200; J2060; Q9967

== ENCOUNTER 2024-05-21 03:34 | Inpatient (IN) | payer MEDICARE, SELFPAY ==
[2024-05-21] VITALS (13 sets, daily range): BP systolic 100–139; BP diastolic 50–76; PULSE 70–91; RESP 14–97; TEMP 36.7–37.2; O2SAT 94–100; BMI 17.2
--- NOTE | ~2024-05-21 | CT_ITS ---
EXAMINATION: CTA chest PE protocol DATE: 05/21/2024 05:57 INDICATION: Chest pain. Shortness of breath. TECHNIQUE: Computed tomography (CT) pulmonary angiogram of the chest was performed with 100 mL Omnipa que-350 intravenous contrast. Additional 3D reconstructions utilizing coronal maximum intensity proje ction (MIP) were performed. Automated exposure control and iterative reconstruction technique were em ployed. The dose-length product was 143.50 mGy-cm. COMPARISON: 07/17/2022 FINDINGS: No pulmonary embolism. Severe emphysema. There are regions of septal line thickening, [place] and developing consolidation in the lingula and right middle and lower lobes consistent with p neumonia. No pulmonary edema, pleural effusion or pneumothorax. Heart size is normal. Atherosclerotic coronary artery calcifications. No pericardial effusion. Thoracic aorta is normal in caliber with no dissection. There is enlargement of the central pulmonary arteries consistent with pulmonary arteria l hypertension. No pathologically enlarged thoracic lymphadenopathy. 1 cm echogenic cyst at the upper pole the left kidney. Also the upper pole the left kidney are several small geographic regions of fo jojo cortical atrophy consistent with sequela of chronic infection or infarction. IMPRESSION: 1. Severe emphysema with multifocal pneumonia in the lingula and right middle and lower lobes. 2. No pulmonary embolus and. 3. Enlargement of the central pulmonary arteries consistent with pulmonary arterial hypertension. Reviewed, dictated and finalized at location A. P [facility]OOK IMPRESSION: 1. Severe emphysema with multifocal pneumonia in the lingula and right middle a nd lower lobes. 2. No pulmonary embolus and. 3. Enlargement of the central pulmonary arteries consistent with pulmonary mikel rial hypertension.
--- NOTE | ~2024-05-21 | XR_ITS ---
EXAMINATION: XR chest 1V portable DATE: 05/21/2024 03:47 INDICATION: Left-sided chest pain TECHNIQUE: frontal view of the chest was obtained. COMPARISON: Chest radiograph date FINDINGS: Hyperexpansion of lungs with increased lucency and architectural distortion most prominent in the rig ht upper lung consistent with emphysema. There are increased coarse reticular and subtle groundglass opacities in the bilateral lower lung zones, right greater than left with appearance on subsequent CT favoring pneumonia over pulmonary edema. No pleural effusion or pneumothorax. The cardiomediastinal silhouette is normal. IMPRESSION: 1. Emphysema with superimposed pneumonia in the bilateral lower lungs. Reviewed, dictated and finalized at location A. AD DRESSER
--- NOTE | 2024-05-21 03:37 | ECG_ITS ---
Test Date: 2024-05-21 03:41:38 Measurements Intervals [place] Rate: 76 P: 89 NM: 132 QRS: 84 QRSD: 89 T: 88 QT: 376 QTc: 423 Interpretive Statements SINUS RHYTHM NONSPECIFIC T-WAVE ABNORMALITY ABNORMAL ECG No previous ECG available for comparison Electronically Signed On 05-21-2024 09:03:27 PHARMACIST IN CHARGE OWNER by Isidro Champagne M.D.
[2024-05-21 03:56] LABS: Basophils Percent Auto 0.3 % (0.2-1.2); Eosinophils Absolute Auto 0.1 K/mm3 (0-0.3); Eosinophils Percent Auto 0.4 % (0-4.4); Hematocrit 37.7 % (37.0-47.0); Hemoglobin 12.3 g/dL (12.0-15.0); Immature Granulocyte Absolute 0.05 K/mm3 (0.00-0.031); Immature Granulocyte Percent A 0.3 % (0-0.5); Lymphocytes Absolute Auto 0.82 K/mm3 (0.9-3.2); Lymphocytes Percent Auto 5.6 % (18.3-44.2); Mean Corpuscular HGB Conc 32.6 g/dl (32-36); Mean Corpuscular Hemoglobin 31.4 pg (26-34); Mean Corpuscular Volume 96.2 fl (80-100); Mean Platelet Volume 9.8 fl (7.4-10.4); Monocytes Absolute Auto 0.7 K/mm3 (0.1-0.6); Monocytes Percent Auto 4.6 % (2.6-8.5); Neutrophils Absolute Auto 12.9 K/mm3 (1.3-6.7); Neutrophils Percent Auto 88.8 % (45.5-73.1); Platelet Count Result 171 k/mm3 (150-375); Red Blood Count 3.92 M/mm3 (4.2-5.4); Red Cell Distribution Width 13.4 % (11.5-14.5); White Blood Count 14.5 K/mm3 (4.5-10.0)
[2024-05-21] MEDS: NITROGLYCERIN SL 0.4 MG TABLET SUBLINGUAL (04:00)
[2024-05-21] MEDS: MORPHINE SULFATE (*CRX) 4 MG/ML INJ 1 MG IV PUSH (04:00)
[2024-05-21 04:10] LABS: Alanine Aminotransferase 23 U/L (6-35); Albumin Level 3.6 g/dL (3.5-5.1); Alkaline Phosphatase 83 U/L (38-126); Anion Gap 4 mmol/L (4-12); Aspartate Amino Transferase 41 U/L (14-36); Bilirubin,Total 0.4 mg/dL (0.2-1.3); Blood Urea Nitrogen 20 mg/dL (7-17); Calcium 8.7 mg/dL (8.4-10.2); Carbon Dioxide 24 mmol/L (22-30); Chloride 110 mmol/L (98-107); Estimated CRCL calculation 33 ml/min; Estimated Glomerular Filt Rate > 60; Glucose 142 mg/dL (65-110); Lipase 103 U/L (23-300); Potassium 3.7 mmol/L (3.4-5.0); Sodium 138 mmol/L (137-145)
--- NOTE | 2024-05-21 04:14 | ED.GENADULT ---
HPI - General Adult General Chief complaint: Chest Pain Stated complaint: CHEST PAIN, EMESIS X 1 Time Seen by Provider: 05/21/24 03:41 History of Present Illness HPI narrative: Patient is a 63-year-old female who presents emergency department with chief complaint of chest pain patient reports started having pain on the left side of her chest reports pain and pressure patient reports he has prior history of cardiac disease and had a ?minor IA but no stents in her heart patient does report that she has had a cough has been nonproductive reports she has history of COPD patient does report that she had 1 episode of nausea and vomiting did feel lightheaded. Patient reports symptoms began around 2:00 a.m. patient was given nitroglycerin by EMS EN route to the emergency department reports that her pain is almost completely resolved. Related Data Allergies Allergy/AdvReac Type Severity Reaction Status Date / Time No Known Allergies Allergy Verified 02/09/23 12:41 Review of Systems Review of Systems: A 10 system review of systems was completed on the patient and is negative except for what is stated in the HPI. Nursing and ancillary documentation was reviewed. [facility] Past Medical History Medical History COPD (chronic obstructive pulmonary disease) Family History Family History Other Unknown family medical history Social History Social History Smoking packs per day: 1 Smoking cigarettes per day: 20.0 Smoking status: Current every day smoker Tobacco type: cigarettes Second hand tobacco smoke exposure: Yes Alcohol intake: never Substance use: current Substance use type: marijuana Last use: 07/17/22 Lack of Transportation: No Lack of Food: Never True Current Housing: I Have Housing Concerned About Future Housing: No Difficulty Paying Gas/Electric Bills: No Difficulty Paying for Meds: No Currently Unemployed: No Education: High School Diploma/GED Difficulty w/ Childcare or Family Care: No Spiritual care concerns: No Exam Narrative: GENERAL: Well-appearing, thin, and in no acute distress. HEAD: Normocephalic, atraumatic. EYES: PERRLA and EOMI. ENT: Nares clear, no rhinorrhea or epistaxis. Mucous membranes moist. NECK: Supple. CHEST: Clear to auscultation. No respiratory distress. HEART: Regular rate and rhythm. No murmur heard. Normal peripheral pulses. ABDOMEN: Soft, nontender, nondistended, normal active bowel sounds. EXTREMITIES: Normal range of motion. No edema. SKIN: Warm, dry, no rash. NEURO: No focal deficits. Alert and oriented x3. PSYCH: Normal mood and affect. Course Vital Signs Vital signs: Vital Signs Temperature 37.2 C 05/21/24 03:38 Pulse Rate 79 05/21/24 03:38 Respiratory Rate 16 05/21/24 03:38 Blood Pressure 139/74 05/21/24 03:38 Pulse Oximetry 99 05/21/24 03:38 Oxygen Delivery Room Air 05/21/24 03:38 Temperature 37.2 C 05/21/24 03:38 Pulse Rate 73 05/21/24 06:32 Respiratory Rate 14 05/21/24 06:32 Blood Pressure 103/58 L 05/21/24 06:32 Pulse Oximetry 97 05/21/24 06:32 Oxygen Delivery Room Air 05/21/24 04:33 Medical Decision Making Vital Signs Vital Signs: Vital Signs Temperature 37.2 C 05/21/24 03:38 Pulse Rate 79 05/21/24 03:38 Respiratory Rate 16 05/21/24 03:38 Blood Pressure 139/74 05/21/24 03:38 Pulse Oximetry 99 05/21/24 03:38 Oxygen Delivery Room Air 05/21/24 03:38 Temperature 37.2 C 05/21/24 03:38 Pulse Rate 73 05/21/24 06:32 Respiratory Rate 14 05/21/24 06:32 Blood Pressure 103/58 L 05/21/24 06:32 Pulse Oximetry 97 05/21/24 06:32 Oxygen Delivery Room Air 05/21/24 04:33 Lab Data 05/21/24 03:50 05/21/24 03:50 Labs: Lab Results 05/21/24 05/21/24 Range/Units 03:50 06:39 WBC 14.5 H (4.5-10.0) K/mm3 RBC 3.92 L (4.2-5.4) M/mm3 Hgb 12.3 (12.0-15.0) g/dL Hct 37.7 (37.0-47.0) % MCV 96.2 (80-100) fl MCH 31.4 (26-34) pg MCHC 32.6 (32-36) g/dl RDW 13.4 (11.5-14.5) % Plt Count 171 (150-375) k/mm3 MPV 9.8 (7.4-10.4) fl Immature Gran % (Auto) 0.3 (0-0.5) % Neut % (Auto) 88.8 H (45.5-73.1) % Lymph % (Auto) 5.6 L (18.3-44.2) % [place] % (Auto) 4.6 (2.6-8.5) % Eos % (Auto) 0.4 (0-4.4) % Baso % (Auto) 0.3 (0.2-1.2) % Lymph # (Auto) 0.82 L (0.9-3.2) K/mm3 [place] # (Auto) 0.7 H (0.1-0.6) K/mm3 Eos # (Auto) 0.1 (0-0.3) K/mm3 Baso # (Auto) 0.0 (0.0-0.1) K/mm3 Abs Immat Gran (auto) 0.05 H (0.00-0.031) K/mm3 Absolute Neuts (auto) 12.9 H (1.3-6.7) K/mm3 Absolute Nucleated RBC 0.000 (0.0-0.012) K/mm3 Nucleated RBC % 0.0 (0.0-0.2) % PT 13.8 (11.1-14.7) Seconds INR 1.0 APTT 27.5 (22.3-36.8) Seconds Sodium 138 (137-145) mmol/L Potassium 3.7 (3.4-5.0) mmol/L Chloride 110 H (98-107) mmol/L Carbon Dioxide 24 (22-30) mmol/L Anion Gap 4 (4-12) mmol/L BUN 20 H (7-17) mg/dL Creatinine 0.80 (0.7-1.0) mg/dL Estim Creat Clear Calc 33 ml/min Estimated GFR > 60 (59 - ) Glucose 142 H (65-110) mg/dL Calcium 8.7 (8.4-10.2) mg/dL Total Bilirubin 0.4 (0.2-1.3) mg/dL AST 41 H (14-36) U/L ALT 23 (6-35) U/L Alkaline Phosphatase 83 (38-126) U/L Troponin I < 0.012 < 0.012 (0.000-0.034) ng/mL Total Protein 6.0 L (6.3-8.2) g/dL Albumin 3.6 (3.5-5.1) g/dL Lipase 103 (23-300) U/L Discharge Plan Discharge Clinical Impression: Pneumonia, Chest pain Patient Disposition: Still a Patient Condition: Stable Patient Language: Citizen Of [place] Prescriptions: No Action lorazepam [Ativan] 0.5 mg tablet 0.5 mg PO BID PRN (Reason: anxiety) Qty: 14 0RF azithromycin [Zithromax] 250 mg Tablet 250 mg PO DAILY Qty: 3 0RF prednisone 20 mg Tablet 40 mg PO DAILY@0800 Qty: 6 0RF ferrous sulfate 325 mg (65 mg iron) Tablet 324 mg PO BIDWM Qty: 60 0RF ipratropium bromide 0.02 % Solution 0.5 mg inhalation Q6HRT 30 Days Qty: 300 2RF albuterol sulfate 2.5 mg/0.5 mL solution for nebulization 2.5 mg inhalation Q6H PRN (Reason: shortness of breath or wheezing) 30 Days Qty: 120 2RF (DME) nebulizer and compressor Device See Rx Instructions .Route Qty: 1 0RF Rx Instructions: As directed metoprolol succinate 50 mg tablet extended release 24 hr 50 mg PO DAILY Qty: 30 0RF Follow-up/Referrals: Mitra,JUVE Brian [Primary Care Provider] - Time of Disposition: 07:13
[2024-05-21 04:16] LABS: Prothrombin Time 13.8 Seconds (11.1-14.7)
[2024-05-21 04:17] LABS: Partial Thromboplastin Time 27.5 Seconds (22.3-36.8)
[2024-05-21 04:21] LABS: Troponin I < 0.012 ng/mL (0.000-0.034)
[2024-05-21 07:05] LABS: Troponin I < 0.012 ng/mL (0.000-0.034)
[2024-05-21] MEDS: AZITHROMYCIN 500 MG/NS 250 ML 500 MG/250 ML BAG 250 MG IVPB (07:59)
[2024-05-21] MEDS: IPRATROPIUM 0.5 MG/ALBUTEROL SULFATE 2.5 MG AMPUL.NEB 3 ML NEBULIZE (08:13)
[2024-05-21 08:22] LABS: Influenza A QL RT-PCR Negative (Negative); Influenza B QL RT-PCR Negative (Negative); RSV RNA, RT-PCR Negative (Negative); SARS-CoV-2 RNA PCR Negative (Negative)
[2024-05-21 11:05] LABS: Troponin I < 0.012 ng/mL (0.000-0.034)
--- NOTE | 2024-05-21 11:49 | PM.IMHP ---
H&P: HPI History of Present Illness Date/Time: 05/21/24 11:49 Chief Complaint: Chest pain and SOB Narrative: 62-year-old female with past medical history of COPD, emphysema CHF, GERD who presented to the ER on account of SOB and chest pain. Patient stated she started having Chest pain and SOB last night, but denies any fever, vomiting, abd pain, diarrhea, dysuria or focal weakness. Noted chronic cough from COPD. Patient was brought to the ER by EMS. ER eval notable for T 98.9, KS 79, RR 16, saturating 97% on room air. Labs notable for WBC 14.5, K 3.7, CTA Chest negative for PE, with bilateral pneumonia. Started on Rocephin and Azithromycin prior to admission. Review of Systems Review of Systems: All other systems reviewed and negative except as noted in the history above. [facility] Past Medical History Medical History COPD (chronic obstructive pulmonary disease) Family History Family History Other Unknown family medical history Social History Social History Smoking packs per day: 1 Smoking cigarettes per day: 20.0 Years smoked: 50 Smoking pack-years: 50.00 Smoking status: Current every day smoker Tobacco type: cigarettes Second hand tobacco smoke exposure: Yes Alcohol intake: never Substance use: current Substance use type: other Other substance usage details: Vape-THC Last use: 05/20/24 Do You Feel Safe in your Home?: Yes Lack of Transportation: No Lack of Food: Never True Current Housing: I Have Housing Concerned About Future Housing: No Difficulty Paying Gas/Electric Bills: No Difficulty Paying for Meds: No Currently Unemployed: No Education: High School Diploma/GED Difficulty w/ Childcare or Family Care: No Spiritual care concerns: No Meds Home Medications and Allergies Home Medications ?Medication ?Instructions ?Recorded ?Confirmed ?Type aspirin 81 mg tablet,delayed 81 mg PO QPM 05/21/24 05/21/24 History release atenolol 25 mg tablet 25 mg PO QPM 05/21/24 05/21/24 History atorvastatin 40 mg tablet 40 mg PO QPM 05/21/24 05/21/24 History famotidine 10 mg tablet 10 mg PO 1600 05/21/24 05/21/24 History Allergies Allergy/AdvReac Type Severity Reaction Status Date / Time No Known Allergies Allergy Verified 02/09/23 12:41 Vital Signs Vital Signs - 24 hr 05/21/24 03:38 05/21/24 04:02 05/21/24 04:33 Temperature 98.9 F Pulse Rate 79 88 Respiratory Rate 16 14 Blood Pressure 139/74 128/76 Pulse Oximetry 99 99 99 Oxygen Delivery Room Air Room Air 05/21/24 06:32 05/21/24 08:13 05/21/24 08:13 Temperature Pulse Rate 73 70 Respiratory Rate 14 16 Blood Pressure 103/58 L Pulse Oximetry 97 99 Oxygen Delivery Room Air 05/21/24 08:21 05/21/24 10:34 Temperature Pulse Rate 72 Respiratory Rate 16 Blood Pressure Pulse Oximetry Oxygen Delivery Room Air Exam Narrative: General: alert and comfortable Eyes: EOMI, PERRLA ENNT External ears normal, Neck is supple, no masses, Respiratory systems: Clear to auscultation Cardiovascular S1, S2, normal rhythm, no murmur, rub, or gallop; no thrill or palpable murmurs on palpation. Gastrointestinal: soft, non-tender, and non-distended abdomen with no masses; BS present Skin: no rash, lesions, ulcerations, subcutaneous nodules or induration Musculoskeletal: no abnormality and no tenderness, normal ROM Neurologic: Alert and oriented x3, non focal Mental Status Exam: normal affect H&P: Results Labs Labs: Short CBC 05/21/24 Range/Units 03:50 WBC 14.5 H (4.5-10.0) K/mm3 Hgb 12.3 (12.0-15.0) g/dL Hct 37.7 (37.0-47.0) % Plt Count 171 (150-375) k/mm3 BMP 05/21/24 03:50 Sodium 138 Potassium 3.7 Chloride 110 H Carbon Dioxide 24 BUN 20 H Creatinine 0.80 Glucose 142 H Calcium 8.7 Cardiac Enzymes 05/21/24 05/21/24 05/21/24 Range/Units 03:50 06:39 10:37 Troponin I < 0.012 < 0.012 < 0.012 (0.000-0.034) ng/mL Liver Function 05/21/24 Range/Units 03:50 Total Bilirubin 0.4 (0.2-1.3) mg/dL AST 41 H (14-36) U/L ALT 23 (6-35) U/L Alkaline Phosphatase 83 (38-126) U/L Albumin 3.6 (3.5-5.1) g/dL Assessment and Plan Assessment and plan (1) Chest pain: Code(s): R07.9 - Chest pain, unspecified Status: Acute (2) Pneumonia: Code(s): J18.9 - Pneumonia, unspecified organism Status: Acute Plan Pneumonia, gram negative vs gram positive Presented with Chest pain and SOB CTA chest showed bilateral pneumonia Troponin negative x3 Blood culture and MRSA Rocephin and Azithromycin Chest pain likely from Pneumonia Troponin negative patient no chest pain at the time of this encounter trend troponin COPD, not in exacerbation Continue Duoneb treatment and Symbicort monitor CHF stable continue home meds no pulm edema and leg edema monitor DVT prophylaxis Sq Lovenox DNR Surrogate decision maker Rukhsana Villanueva [facility] Advance Care Plan I have confirmed that the patient's Advanced Care Plan is present, code status is documented, or surrogate decision maker is listed in patient medical record.: Yes Medication Reconciliation I have utilized all available resources to obtain, update and review the patients current medications (includes all prescriptions, OTC, herbals, cannabis, and nutritional supplements).: Yes
[2024-05-21] MEDS: IPRATROPIUM 0.5 MG/ALBUTEROL SULFATE 2.5 MG AMPUL.NEB 3 ML INHALATION ×2 (14:09→20:48)
[2024-05-21 17:27] LABS: MRSA (PCR) NOT DETECTED (NOT DETECTE)
[2024-05-21] MEDS: atenoloL 25 MG TABLET PO (18:08)
[2024-05-21] MEDS: ATORVASTATIN 40 MG TABLET PO (18:09)
[2024-05-21] MEDS: FLUTICASONE/SALMETEROL 45-21 MCG INHALER 1 PUFF 2 PUFF INHALATION (20:48)
[2024-05-22] VITALS (8 sets, daily range): BP systolic 122–135; BP diastolic 62; PULSE 67–85; RESP 16–18; TEMP 37.1–37.4; O2SAT 94–100; BMI 17.2; BMI 13.1
[2024-05-22] MEDS: IPRATROPIUM 0.5 MG/ALBUTEROL SULFATE 2.5 MG AMPUL.NEB 3 ML INHALATION ×3 (02:40→13:35)
[2024-05-22] MEDS: ACETAMINOPHEN 325 MG TABLET 650 MG PO (06:30)
[2024-05-22 06:53] LABS: Troponin I < 0.012 ng/mL (0.000-0.034)
[2024-05-22] MEDS: FLUTICASONE/SALMETEROL 45-21 MCG INHALER 1 PUFF 2 PUFF INHALATION (07:40)
[2024-05-22] MEDS: AZITHROMYCIN 500 MG/NS 250 ML 500 MG/250 ML BAG 250 MG IVPB (08:19)
[2024-05-22 09:32] LABS: Basophils Percent Auto 0.2 % (0.2-1.2); Eosinophils Absolute Auto 0.1 K/mm3 (0-0.3); Eosinophils Percent Auto 0.7 % (0-4.4); Hematocrit 36.2 % (37.0-47.0); Hemoglobin 11.6 g/dL (12.0-15.0); Immature Granulocyte Absolute 0.03 K/mm3 (0.00-0.031); Immature Granulocyte Percent A 0.3 % (0-0.5); Lymphocytes Absolute Auto 1.24 K/mm3 (0.9-3.2); Lymphocytes Percent Auto 14.4 % (18.3-44.2); Mean Corpuscular Hemoglobin 31.1 pg (26-34); Mean Corpuscular Volume 97.1 fl (80-100); Mean Platelet Volume 10.8 fl (7.4-10.4); Monocytes Absolute Auto 0.5 K/mm3 (0.1-0.6); Monocytes Percent Auto 5.5 % (2.6-8.5); Neutrophils Absolute Auto 6.8 K/mm3 (1.3-6.7); Neutrophils Percent Auto 78.9 % (45.5-73.1); Platelet Count Result 154 k/mm3 (150-375); Red Blood Count 3.73 M/mm3 (4.2-5.4); Red Cell Distribution Width 13.5 % (11.5-14.5); White Blood Count 8.6 K/mm3 (4.5-10.0)
[2024-05-22] MEDS: IRON SUCROSE COMPLEX 400 MG, IRON SUCROSE COMPLEX 100 MG in SODIUM CHLORIDE 0.9% IV 250 ML 78.57 MG IVPB (10:15)
[2024-05-22 11:42] LABS: Iron 17 ug/dL (37-170)
[2024-05-22 11:52] LABS: Percent Iron Saturation 6 % (20-50)
--- NOTE | 2024-05-22 14:32 | P.DS_ITS ---
DS: Admitting Diagnosis Discharge Date 05/22/24 Admitting Diagnosis SOB DS: Discharge Diagnosis Discharge Diagnosis (1) Pneumonia: Code(s): J18.9 - Pneumonia, unspecified organism Status: Acute DS: Summary Hospital Course Hospital Course: 62-year-old female with past medical history of COPD, emphysema CHF, GERD who presented to the ER on account of SOB and chest pain. Patient stated she started having Chest pain and SOB last night, but denies any fever, vomiting, abd pain, diarrhea, dysuria or focal weakness. Noted chronic cough from COPD. Patient was brought to the ER by EMS. ER eval notable for T 98.9, TN 79, RR 16, saturating 97% on room air. Labs notable for WBC 14.5, K 3.7, CTA Chest negative for PE, with bilateral pneumonia. Started on Rocephin and Azithromycin prior to admission. Patient continues to be on room air, vital signs stable and leukocytosis resolved. Dietitian evaluated and noted patient is severely malnourished adn recommended protein supplements. Patient discharged on 5 more days of Cefdinir and Doxycycline. f/u with PCP in 3-5 days. Time Spent with Patient Time attestation: Total time spent providing and/or coordinating discharge services: DS: Data Data Completed and Pending Labs on day of discharge: Labs from last 24 hours 05/22/24 05/22/24 05/21/24 06:13 06:11 16:05 WBC 8.6 RBC 3.73 L Hgb 11.6 L Hct 36.2 L MCV 97.1 MCH 31.1 MCHC 32.0 RDW 13.5 Plt Count 154 MPV 10.8 H Immature Gran % (Auto) 0.3 Neut % (Auto) 78.9 H Lymph % (Auto) 14.4 L [place] % (Auto) 5.5 Eos % (Auto) 0.7 Baso % (Auto) 0.2 Lymph # (Auto) 1.24 [place] # (Auto) 0.5 Eos # (Auto) 0.1 Baso # (Auto) 0.0 Abs Immat Gran (auto) 0.03 Absolute Neuts (auto) 6.8 H Absolute Nucleated RBC 0.000 Nucleated RBC % 0.0 Iron 17 L TIBC 305 % Saturation 6 L Ferritin 30.20 Troponin I < 0.012 Nasal MRSA (PCR) Not detected Preliminary micro results at discharge 05/21/24 07:35 Blood Culture - Preliminary Blood 05/21/24 07:36 Blood Culture - Preliminary Blood Discharge Plan Discharge Attending physician on discharge: Rachael Garcia Discharging Clinician: Rachael Garcia Anticipated Discharge Date/Time: 05/22/24 14:29 Patient Disposition: Home, Self-Care Activity: as tolerated Diet: as tolerated Patient Instructions: Antibiotic Form Patient Language: Romansh Stand Alone Forms: General Discharge Information Follow-up/Referrals: Cole,Ozzy Hines PA [Primary Care Provider] - (F/u with PCP in 3-5 days ) Discharge Medications: New cefdinir 300 mg capsule 300 mg PO Q12H 5 Days Qty: 10 0RF doxycycline hyclate 100 mg tablet 100 mg PO BID 5 Days Qty: 10 0RF Continued aspirin 81 mg tablet,delayed release (DR/EC) 81 mg PO QPM atenolol 25 mg tablet 25 mg PO QPM atorvastatin 40 mg tablet 40 mg PO QPM famotidine 10 mg tablet 10 mg PO 1600 Date of admission: 05/21/24 08:44 Primary Care Provider: MitraOzzy Admitting Provider: Rachael Garcia Attending physician on admission: Rachael Garcia Condition: Stable
--- OUTSIDE RECORDS SUMMARY | 2024-05-28 02:27 | XMS_ITS | Encounter Summary ---
Author Organization [facility] Health Address [address] [place] [address] Care Team Providers Care Modeling Director Name Role Phone Ozzy Manriquez Primary Care Provider [phone] Encounter Details Date Type Department Care Team (Latest Contact Info) Description 05/02/2024 Travel Social History Tobacco Use Types Packs/Day Years Used Date Smoking Tobacco: Every Day Cigarettes Smokeless Tobacco: Never Sex and Gender Information Value Date Recorded Sex Assigned at Not on file Gender Identity Not on file Sexual Orientation Not on file documented as of this encounter Plan of Treatment Not on file documented as of this encounter Visit Diagnoses Not on filedocumented in this encounter Care Teams Modeling Director Relationship Specialty Start Date End Date Ozzy Manriquez PA [address] [place] [address] PCP - General Physician Industrial [employer] Rep[employer]r 03/22/23 documented as of this encounter
--- OUTSIDE RECORDS SUMMARY | 2024-05-28 02:27 | XMS_ITS | Clinical Summary ---
Author Organization [facility] [employer] Address [address] [place] [address] Care Team Providers Care Screw Machine Set Up Operator Tool Name Role Phone Ozzy Manriquez Primary Care Provider [phone] Source Comments [facility] [employer],non-owned Affiliates and Associated Physician Practices is amultiple site organization consisting of ambulatory clinics and hospital sitesin [place], [place], [place] and [place]. This disclosure is being madepursuant to the Care Everywhere program and may not contain all information available regarding this patient. Last updated 18.[employer] Allergies No known active allergies Medications * Be aware that medications may not be up to date on this document. Alwaysverify current medications with the patient. Medication Sig Dispensed Refills Start Date End Date Status atenolol (Tenormin) 25 MG tablet Take 1 (one) tablet by mouth once daily Active Aspirin-Acetaminop hen-Caffeine (HEADACHE FORMULA PO) Take 1 tablet by mouth once daily as needed Active aspirin EC (Aspirin 81) 81 MG tabletIndications: Cerebrovascular accident (CVA), unspecified mechanism (HCC) Take 1 (one) tablet by mouth once daily 30 tablet 11 07/14/2023 Active atorvastatin (Lipitor) 40 MG tablet Take 1 (one) tablet by mouth once daily 100 tablet 4 08/12/2023 Active LORazepam (Ativan) 0.5 MG tablet Take 1 (one) tablet by mouth Takes 2 -3 times per day. 05/02/2024 Discontinued (List Clean-Up) ferrous sulfate 325 (65 FE) MG tablet Take 1 (one) tablet by mouth every 2 days 05/02/2024 Discontinued (List Clean-Up) famotidine (Pepcid) 20 MG tablet Take 0.5 (one-half) tablet by mouth 2 times daily 05/02/2024 Discontinued (List Clean-Up) busPIRone (Buspar) 5 MG tabletIndications: Anxiety Take 1 (one) tablet by mouth 2 times daily 60 tablet 10/25/2023 05/02/2024 Discontinued (List Clean-Up) Active Problems Problem Noted Date Diagnosed Date Seizure-like activity 05/02/2024 Encounters Date Type Department Care Team Description 05/02/2024 1:30 PM MIXER AND BLENDER Office Visit [facility] - Neurology [address] [place] [address] Christel Calix APRN-HARVEY Depression, unspecified depression type (Primary Dx); Memory impairment 05/02/2024 Travel 03/30/2024 1:25 PM MIXER AND BLENDER - 03/30/2024 11:59 PM MIXER AND BLENDER Hospital Encounter [facility] EEG/EMG [address] [place] [address] Pillo Dugan, DO Discharge Disposition: Home or Self Care 03/30/2024 Travel from Last 3 Months Family History Medical History Relation Name Comments Cancer - Breast Maternal Aunt Relation Name Status Comments Maternal Aunt Social History Tobacco Use Types Packs/Day Years Used Date Smoking Tobacco: Every Day Cigarettes Smokeless Tobacco: Never Tobacco Cessation:Ready to Q uit: Not Asked; Counseling Given: Not Answered Sex and Gender Information Value Date Recorded Sex Assigned at Not on file Gender Identity Not on file Sexual Orientation Not on file Last Filed Vital Signs Vital Sign Reading Time Taken Comments Blood Pressure 156/92 05/02/2024 1:16 PM MIXER AND BLENDER Pulse 62 05/02/2024 1:16 PM MIXER AND BLENDER Temperature - - Respiratory Rate 12 10/25/2023 10:47 AM CDT Oxygen Saturation - - Inhaled Oxygen Concentration - - Weight 30.8 kg (68 lb) 05/02/2024 1:16 PM MIXER AND BLENDER Height 157.5 cm (5' 2 ) 07/14/2023 11:01 AM MIXER AND BLENDER Body Mass Index 12.44 07/14/2023 11:01 AM MIXER AND BLENDER Plan of Treatment Health Maintenance Due Date Last Done Comments BONE DENSITY TESTING 1960 COLOGUARD (AGES 45-75) - COL ON CA SCREENING 1960 COLON MONITORING 1960 COLONOSCOPY - COLON CA SCREENING 1960 CT COLONOGRAPHY - COLON CA SCREENING 1960 Colorectal Cancer Screening 1960 FIT - COLON CA SCREENING 1960 FLEX SIG - COLON CA SCREENING 1960 MEDICARE AWV ? 12 MONTHS 1960 PAP SMEAR 1960 PNEUMOCOCCAL VACCINE 65+ (1 of 2 - PCV) 1964 HIV SCREENING 1973 HEPATITIS C SCREENING 07/06/1976 DTAP/TDAP/TD VACCINES (1 - Tdap) 1977 ZOSTER VACCINE (1 of 2) 2008 COVID-19 VACCINE (1 - 2023-2 5 season) 2024 INFLUENZA VACCINE (#1) 2024 DEPRESSION SCREENING 05/24/2024 MAMMOGRAM 07/26/2025 07/27/2023, 04/19/2018 Respiratory Syncytial Virus (RSV) Vaccine Pt: or over 60 yrs (1 - 1-dose 75+ series) 2033 HEPATITIS B VACCINE Aged Out No longe r eligible based on patient's age to complete this topic HIB VACCINE Aged Out No longer eligi ble based on patient's age to complete this topic HPV VACCINE Aged Out No longer eligi ble based on patient's age to complete this topic MENINGOCOCCAL VACCINE Aged Out No baltazar neno eligible based on patient's age to complete this topic Procedures Procedure Name Priority Date/Time Associated Diagnosis Comments MAMMO BILAT SCREENING W CLAU Routine 07/27/2023 11:07 AM MIXER AND BLENDER Screening due Screening mammogram for breast cancer from Last 3 Months or Most Recently Relevant to Health Maintenance Results * MAMMO BILAT SCREENING W CLAU (07/27/2023 11:07 AM MIXER AND BLENDER) Anatomical Region Laterality Modality Breast Bilateral Mammography 07/27/2023 2:38 PM MIXER AND BLENDER Impressions 07/27/2023 3:56 PM MIXER AND BLENDER : ??No mammographic evidence of malignancy. Extremely dense breast parenchyma. RECOMMENDATION: 1. Screening mammography in one year, pending no interval breast concerns. 2. Given the extremely dense breast parenchyma, consider annual complete breast ultrasound or breast MRI scan for supplemental screening. OVERALL ASSESSMENT: ??BI-RADS CATEGORY 1: NEGATIVE. Report dictated by Clarke Kendrick MD, MD (radiology physician assistant). I, Veena Snowden DO have personally reviewed and interpreted this examination/study. > Interpreting Provider: Veena Snowden DO on 07/27/2023 3:56 PM Narrative 07/27/2023 3:56 PM MIXER AND BLENDER EXAMINATIONS: ??BILATERAL DIGITAL SCREENING MAMMOGRAM AND BILATERAL BREAST TOMOSYNTHESIS WITH CAD LOCATION: [facility] EXAM DATE: ??07/27/2023 HISTORY: ??Screening. Family history of breast cancer in maternal aunt. RISK ASSESSMENT CALCULATION: Not performed as tablets currently not available due to pending upgrade. COMPARISON: ??Outside bilateral screening mammogram dated 04/19/2018 TECHNIQUE: Tomosynthesis (3D) and reconstructed synthetic 2-D images acquired and reviewed in the bilateral craniocaudal and mediolateral oblique projections. ??A total of 4 images obtained. Computer-aided detection (CAD) was utilized. ?? BREAST PARENCHYMAL COMPOSITION: Category D: The breasts are extremely dense which lowers the sensitivity of mammography. FINDINGS: There are no suspicious findings or evidence of malignancy on mammography. There is no significant change from the prior. ?? Chen Cano PA-C MAMMO ORDERABLES from Last 3 Months or Most Recently Relevant to Health Maintenance Care Teams Screw Machine Set Up Operator Tool Relationship Specialty Start Date End Date Ozzy Manriquez PA [address] [place] [address] PCP - General Physician Drywall Finishing Foreman 03/22/23
--- OUTSIDE RECORDS SUMMARY | 2024-05-28 02:27 | XMS_ITS | Patient Health Summary ---
Author Organization [facility] [employer] Address [address] [place] [address] Care Team Providers Care Segmental Paving Supervisor Name Role Phone Ozzy Manriquez Primary Care Provider [phone] Note from [facility],non-owned Affiliates and Associated Physician Practices is amultiple site organization consisting of ambulatory clinics and hospital sitesin [place], [place], [place] and [place]. This disclosure is being madepursuant to the Care Everywhere program and may not contain all information available regarding this patient. Last updated 18.[facility] [employer] Allergies No known active allergies Medications * Be aware that medications may not be up to date on this document. Alwaysverify current medications with the patient. * atenolol (Tenormin) 25 MG tablet Take 1 (one) tablet by mouth once daily * Zzydwbf-Zuyxcnlabwtxl-Payadfkl (HEADACHE FORMULA PO) Take 1 tablet by mouth once daily as needed * aspirin EC (Aspirin 81) 81 MG tablet(Started 07/14/2023) Take 1 (one) tablet by mouth once daily 11 refills by 07/13/2024 * atorvastatin (Lipitor) 40 MG tablet(Started 08/12/2023) Take 1 (one) tablet by mouth once daily 4 refills by 08/11/2024 Ended Medications* LORazepam (Ativan) 0.5 MG tablet(Discontinued) Take 1 (one) tablet by mouth Takes 2 -3 times per day. * ferrous sulfate 325 (65 FE) MG tablet(Discontinued) Take 1 (one) tablet by mouth every 2 days * famotidine (Pepcid) 20 MG tablet(Discontinued) Take 0.5 (one-half) tablet by mouth 2 times daily * busPIRone (Buspar) 5 MG tablet(Started 10/25/2023)(Discontinued) Take 1 (one) tablet by mouth 2 times daily Active Problems Problem Noted Date Diagnosed Date Seizure-like activity 05/02/2024 Social History Tobacco Use Types Packs/Day Years [...] Comments Blood Pressure 156/92 05/02/2024 1:16 PM HOUSE MANAGER Pulse 62 05/02/2024 1:16 PM HOUSE MANAGER Temperature - - Respiratory Rate 12 10/25/2023 10:47 AM CDT Oxygen Saturation - - Inhaled Oxygen Concentration - - Weight 30.8 kg (68 lb) 05/02/2024 1:16 PM HOUSE MANAGER Height 157.5 cm (5' 2 ) 07/14/2023 11:01 AM HOUSE MANAGER Body Mass Index 12.44 07/14/2023 11:01 AM HOUSE MANAGER Procedures * MRI BRAIN WO CONTRAST(Performed 10/20/2023) Performed for Cerebrovascular accident (CVA), unspecified mechanism (HCC) * AK REMOTE 30 DAY ECG REV/REPORT(Performed 09/12/2023) Performed for Palpitations * CARDIAC PROCEDURE ORDER(Performed 08/04/2023) * MAMMO BILAT SCREENING W CLAU(Performed 07/27/2023) Performed for Screening due, Screening mammogram for breast cancer * CARDIAC PROCEDURE ORDER(Performed 07/27/2023) Results * MRI BRAIN WO CONTRAST (10/20/2023 4:39 PM CDT) Anatomical Region Laterality Modality Head Magnetic Resonan ce 10/29/2023 3:22 PM CDT Impressions 10/29/2023 5:25 PM CDT IMPRESSION: No acute intracranial process including hemorrhage or infarction. Mild to moderate burden of chronic ischemic small vessel disease noted. The report was drafted by Mary Ervin MD (Banquet Coordinator). IElda MD have personally reviewed and interpreted this examination/study. > Interpreting Provider: Elda Hardy MD on 10/29/2023 5:25 PM Narrative 10/29/2023 5:25 PM CDT PROCEDURE: ??MRI BRAIN WO CONTRAST, DATE/TIME OF EXAM: ??10/20/2023 4:39 PM, LOCATION ??[facility] INDICATION: I63.9: Cerebrovascular accident (CVA), unspecified mechanism (HCC) ADDITIONAL CLINICAL INFORMATION: Ordering Provider Reason For Exam: Technologist Note: Additional: COMPARISON: No prior study is available for comparison at the time of this dictation. TECHNIQUE: MRI of the brain was performed without contrast according to standard protocol. FINDINGS: No evidence of acute intracranial hemorrhage. Punctate focus of susceptibility along the left superior cerebellar folia could be sequela of chronic microhemorrhage. (Image 2, series 6).. No evidence of acute cerebral infarction is seen. There is is mild to moderate cerebral volume loss with associated ex vacuo ventricular dilatation. No mass effect or midline shift is seen. Mild to moderate burden of periventricular and subcortical white matter FLAIR hyperintensities likely represent sequelae of chronic small vessel ischemic disease. Old lacunar infarcts are present in the bilateral basal ganglia/caudate nucleus, left periventricular white matter abutting the atrium of the left lateral ventricle and and bilateral cerebellar hemispheres.. The corpus callosum and sella appear normal. The posterior fossa, brainstem, and craniocervical junction otherwise appear normal. The visualized portions of the orbits, paranasal sinuses, and mastoids appear normal. Normal flow voids are demonstrated in the carotid arteries and basilar artery. The calvarium appears normal. Mild degenerative changes in the partially visualized cervical spine. Procedure Note Elda Hardy MD - 10/29/2023 PROCEDURE: MRI BRAIN WO CONTRAST, DATE/TIME OF EXAM: 10/20/2023 4:39PM, LOCATION [facility] INDICATION: I63.9: Cerebrovascular accident (CVA), unspecified mechanism (HCC) ADDITIONAL CLINICAL INFORMATION: Ordering Provider Reason For Exam: Technologist Note: Additional: COMPARISON: No prior study is available for comparison at the time ofthis dictation. TECHNIQUE: MRI of the brain was performed without contrast according to standard protocol. FINDINGS: No evidence of acute intracranial hemorrhage. Punctate focus of susceptibility along the left superior cerebellar folia could be sequelaof chronic microhemorrhage. (Image 2, series 6).. No evidence of acute cerebral infarction is seen. There is is mild to moderate cerebralvolume loss with associated ex vacuo ventricular dilatation. No mass effect or midline shift is seen. Mild to moderate burden of periventricular and subcortical white matter FLAIR hyperintensities likely representsequelae of chronic small vessel ischemic disease. Old lacunar infarcts arepresent in the bilateral basal ganglia/caudate nucleus, left periventricularwhite matter abutting the atrium of the left lateral ventricle and andbilateral cerebellar hemispheres.. The corpus callosum and sella appear normal.The posterior fossa, brainstem, and craniocervical junction otherwise appear normal. The visualized portions of the orbits, paranasal sinuses, and mastoids appear normal. Normal flow voids are demonstrated in the carotidarteries and basilar artery. The calvarium appears normal. Mild degenerativechanges in the partially visualized cervical spine. IMPRESSION: No acute intracranial process including hemorrhage or infarction. Mildto moderate burden of chronic ischemic small vessel disease noted. The report was drafted by Mary Ervin MD (Banquet Coordinator). I, Elda Hardy MD have personally reviewed and interpreted this examination/study. > Interpreting Provider: Elda Hardy MD on 10/29/2023 5:25 PM Chen Cano PA-C MR ORDERABLES * AK REMOTE 30 DAY ECG REV/REPORT (09/12/2023 9:33 AM CDT) Narrative Orion Winkler MD - 09/12/2023 9:33 AM CDT Orion Winkler MD ? 09/12/2023 ??9:36 AM Read Date: ??09/12/2023 Patient name: Kamini Christina Patient : ??1960 Patient Age: [age] year old EVENT MONITOR REPORT: Indication for placement: Palpitations Requesting MD: Chen Cano Duration of monitorin days, 07/27/2023 to 08/25/2023 Available tracings are adequate for interpretation for 21d 02h 53m. 1. ??The mean average HR overall was: 76 bpm 2. ??The fastest HR noted was: 130 bpm 3. ??The slowest HR noted was: 49 bpm and occurred on 08/15 at 0419 4. ?? 1096 premature ventricular complexes (PVCs) occurred (<1% of 2.3 million complexes). 10,023 premature atrial contractions (PACs) occurred <1% of the time. ?? 5. ??Atrial fibrillation was not detected. ??Atrial fibrillation burden was 0 %. 6. ??No Pause(s) noted of 3 seconds or longer. Patient transmitted 5 manually-triggered recordings and reported no symptoms. During these manually-triggered recordings sinus rhythm with no conduction or rhythm abnormalities were noted. Other recordings demonstrated sinus rhythm with no conduction or rhythm abnormalities. Final Interpretation: ?? No sustained arrhythmias. Orion Winkler MD PROCEDURE/MINOR SURG ICAL ORDERABLES * CARDIAC PROCEDURE ORDER (08/04/2023) Only the most recent of2 resultswithin the time period is included. 08/04/2023 Narrative 08/04/2023 Ordered by an unspecified provider. Scanned Document CARDIAC SERVICES ORD ERABLES * MAMMO BILAT SCREENING W CLAU (07/27/2023 11:07 AM HOUSE MANAGER) Anatomical Region Laterality Modality Breast Bilateral Mammography 07/27/2023 2:38 PM HOUSE MANAGER Impressions 07/27/2023 3:56 PM HOUSE MANAGER : ??No mammographic evidence of malignancy. Extremely dense breast parenchyma. RECOMMENDATION: 1. Screening mammography in one year, pending no interval breast concerns. 2. Given the extremely dense breast parenchyma, consider annual complete breast ultrasound or breast MRI scan for supplemental screening. OVERALL ASSESSMENT: ??BI-RADS CATEGORY 1: NEGATIVE. Report dictated by Clarke Kendrick MD, (resident care aide). I, Veena Snowden DO have personally reviewed and interpreted this examination/study. > Interpreting Provider: Veena Snowden DO on 07/27/2023 3:56 PM Narrative 07/27/2023 3:56 PM HOUSE MANAGER EXAMINATIONS: ??BILATERAL DIGITAL SCREENING MAMMOGRAM AND BILATERAL BREAST TOMOSYNTHESIS WITH CAD LOCATION: [facility] EXAM DATE: ??07/27/2023 HISTORY: ??Screening. Family history [...] prior. ?? Chen Cano PA-C MAMMO ORDERABLES Care Teams Segmental Paving Supervisor Relationship Specialty Start Date End Date Ozzy Manriquez PA [address] [place] [address] PCP - General Physician Stem Processing Machine Operator 03/22/23
--- OUTSIDE RECORDS SUMMARY | 2024-05-28 02:27 | XMS_ITS | Referral Summary ---
Author Organization [facility] [employer] Address [address] [place] [address] Care Team Providers Care Ehs Manager Name Role Phone Ozzy Manriquez Primary Care Provider [phone] Source Comments [facility],non-owned Affiliates and Associated Physician Practices is amultiple site organization consisting of ambulatory clinics and hospital sitesin [place], [place], [place] and [place]. This disclosure is being madepursuant to the Care Everywhere program and may not contain all information available regarding this patient. Last updated 18.[facility] Encounters Date Type Department Care Team Description 05/02/2024 Travel 05/02/2024 1:30 PM INVASIVE CARDIOLOGIST Office Visit [facility] - Neurology [address] [place] [address] Christel Calix APRN-HARVEY Depression, unspecified depression type (Primary Dx); Memory impairment 03/30/2024 Travel 03/30/2024 1:25 PM INVASIVE CARDIOLOGIST - 03/30/2024 11:59 PM INVASIVE CARDIOLOGIST Hospital Encounter [facility] EEG/EMG [address] [place] [id number] Pillo Dugan, DO Discharge Disposition: Home or Self Care from Last 3 Months Allergies No known active allergies Medications * [...] Comments Blood Pressure 156/92 05/02/2024 1:16 PM INVASIVE CARDIOLOGIST Pulse 62 05/02/2024 1:16 PM INVASIVE CARDIOLOGIST Temperature - - Respiratory Rate 12 10/25/2023 10:47 AM CDT Oxygen Saturation - - Inhaled Oxygen Concentration - - Weight 30.8 kg (68 lb) 05/02/2024 1:16 PM INVASIVE CARDIOLOGIST Height 157.5 cm (5' 2 ) 07/14/2023 11:01 AM INVASIVE CARDIOLOGIST Body Mass Index 12.44 07/14/2023 11:01 AM INVASIVE CARDIOLOGIST Plan of Treatment Not on file Procedures Procedure Name Priority Date/Time Associated Diagnosis Comments MAMMO BILAT SCREENING W CLAU Routine 07/27/2023 11:07 AM INVASIVE CARDIOLOGIST Screening due Screening mammogram for breast cancer from Last 3 Months or Most Recently Relevant to Health Maintenance Results * MAMMO BILAT SCREENING W CLAU (07/27/2023 11:07 AM INVASIVE CARDIOLOGIST) Anatomical Region Laterality Modality Breast Bilateral Mammography 07/27/2023 2:38 PM INVASIVE CARDIOLOGIST Impressions 07/27/2023 3:56 PM INVASIVE CARDIOLOGIST : ??No mammographic evidence of malignancy. Extremely dense breast parenchyma. RECOMMENDATION: 1. Screening mammography in one year, pending no interval breast concerns. 2. Given the extremely dense breast parenchyma, consider annual complete breast ultrasound or breast MRI scan for supplemental screening. OVERALL ASSESSMENT: ??BI-RADS CATEGORY 1: NEGATIVE. Report dictated by Clarke Kendrick MD, MD (residential remodeling subcontractor). I, Veena Snowden DO have personally reviewed and interpreted this examination/study. > Interpreting Provider: Veena Snowden DO on 07/27/2023 3:56 PM Narrative 07/27/2023 3:56 PM INVASIVE CARDIOLOGIST EXAMINATIONS: ??BILATERAL DIGITAL SCREENING MAMMOGRAM AND BILATERAL BREAST TOMOSYNTHESIS WITH CAD [facility]ATION: [facility] EXAM DATE: ??07/27/2023 HISTORY: ??Screening. Family history [...] Recently Relevant to Health Maintenance Care Teams Ehs Manager Relationship Specialty Start Date End Date Ozzy Manriquez PA [address] [place] [address] PCP - General Physician Speech Therapy Director 03/22/23
--- OUTSIDE RECORDS SUMMARY | 2024-05-28 02:28 | XMS_ITS | Encounter Summary ---
Author Organization [facility] Health Address [address] [facility] [place] [address] Care Team Providers Care Weight Shifter Name Role Phone Ozzy Manriquez Primary Care Provider [phone] Reason for Referral * Evaluate & Treat (Routine) - Closed Specialty Diagnoses / Procedures Referred By Luana t Referred To Contact Neurology Diagnoses Spells of decreased attentiveness Chen Cano PA-C [address] [facility] [address] [place] [address] [facility] [address] [facility] [place] [address] Referral ID Status Reason Start Date Expiration Date V isits Requested Visits Authorized [id number] Closed Specialty Services Required 10/25/2023 10/24/2024 1 1 * Radiology Services (Routine) - Closed Specialty Diagnoses / Procedures Referred By Contrajesh t Referred To Contact Ultrasound Diagnoses Screening due Procedures US BREAST BILATERAL COMPLETE (SCREENING ONLY) Chen Cano PA-C [address] [facility] [address] [place] [address] Referral ID Status Reason Start Date Expiration Date Visits Re quested Visits Authorized [id number] Closed 10/25/2023 10/24/2024 1 1 * Neurology (Routine) - Closed Specialty Diagnoses / Procedures Referred By Luana t Referred To Contact Neurology Diagnoses Spells of decreased attentiveness Procedures EEG EXTENDED MONITORING > 1 HOUR Chen Cano PA-C [address] [facility] [address] [place] [address] Referral ID Status Reason Start Date Expiration Date Visits Re quested Visits Authorized [id number] Closed 10/25/2023 10/24/2024 1 1 Encounter Details Date Type Department Care Team (Latest Contact Info) Description 10/25/2023 11:00 AM CDT Office Visit [facility] - Neurology [address] [place] [address], [place] [address] Chen Cano PA-C [address] [facility] [address] [place] [address] Cerebrovascular accident (CVA), unspecified mechanism (HCC) (Primary Dx); Anxiety; Spells of decreased attentiveness; Screening due; Elevated BP without diagnosis of hypertension Social History Tobacco Use Types Packs/Day Years Used Date Smoking Tobacco: Every Day Cigarettes Smokeless Tobacco: Never Tobacco Cessation:Ready to Q uit: Not Asked; Counseling Given: Not Answered Sex and Gender Information Value Date Recorded Sex Assigned at Not on file Gender Identity Not on file Sexual Orientation Not on file documented as of this encounter Last Filed Vital Signs Vital Sign Reading Time Taken Comments Blood Pressure 165/82 10/25/2023 10:47 AM CDT Pulse 64 10/25/2023 10:47 AM CDT Temperature - - Respiratory Rate 12 10/25/2023 10:47 AM CDT Oxygen Saturation - - Inhaled Oxygen Concentration - - Weight 31.5 kg (69 lb 6.4 oz) 10/25/2023 10:47 A M CDT Height - - Body Mass Index 12.69 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 documented in this encounter Patient Instructions * Patient Instructions* Chen Cano PA-C - 10/25/2023 12:05 PM CDT The good things about today- Mammogram was normal--no breast cancer detected Heart monitor did not show anything abnormal to suspect irregular heart beats MRI reviewed with no acute new/current stroke, but awaiting radiology final read We started anxiety medication to help improve your anxiety today which will hopefully help you feelbetter soon, follow up with your pcp and start counseling to also help this We discussed why it's a good idea to go to the ER if you have one sided weakness or loss of consciousness--so they can image your brain right away to see if they see anything. On the to do list- Breast ultrasound EEG (checking for seizures) Appointment with the seizure team for evaluation Waiting on MRI to be read PCP follow up Memory care work up--at another facility Cutting back on smoking -Follow up with your primary care provider as routinely scheduled to monitor your blood pressure and yearly cholesterol labs. -Follow up with our clinic depending on MRI results -If you have questions about this visit, please contact our nurse Mercedes at [phone]. -If additional testing/referrals were ordered, you will receive a call you to schedule this. If youhaven't heard from them in 2 weeks, please call [phone] -Take your medications as prescribed. If you have questions on them you can speak with your primarycare provider, pharmacist or call our office. Goals to decrease risk of future stroke: - Goal blood pressure is around 120 (top number) and 80 (bottom number) - For people with diabetes, goal A1c less than 7 - Cholesterol goal LDL less than 100 - Medication compliance - Physical Activity: 3-4x 40min sessions of aerobic exercise per week - Nutrition: diet rich in fruit and vegetables, low sodium intake to less than 2.4gram per day - Tobacco avoidance -Signs or symptoms of a stroke include: sudden numbness or weakness in your face, arm, or legs, sudden problems with speaking or understanding speech, sudden issues with walking or loss of balance, sudden lack of coordination, or asymmetrical features of your face. If any of these events occur, please call 911 and go to the nearest emergency room. documented in this encounter Progress Notes * Chen Cano PA-C - 10/25/2023 11:00 AM CDT Images from the original note were not included. Stroke Neurology Clinic Visit Note Date of Encounter: 10/25/2023 Chief Complaint: Hx of stroke and TIA HPI: Kamini Christina is a 63 year old y/o female who presents to the outpatient clinic for hx of stroke and TIA. Pt was seen with daughter on exam. Pt states she had only one new episode since the last time we met. She states this episode happened after her daughter and her had a big fight. She was in the shower and started seeing red lines. This has never happened before so she hurried up and washed her hair. When she stepped out of the shower she passed out. She says she did not slip, that she waslosing consciousness and could tell it was going to happen. She has no palpitations, lightheadedness, dizziness or one sided weakness during this time. When she got out of the shower she passed out. She thinks she was out for 4-5 min but wasn't sure. When she woke up she had complete paralysis for her right arm and leg. This was new for her as all of her episodes in the past affected her left side. This paralysis lasted for about 10- 15 min. She has to crawl on the bathroom floor to call for help. She doesn't remember being confused and no one was around to confirm her mental state. She had nobites in her mouth but was sore generally after due to being on the bathroom floor. After about 20 minutes she was back to her normal state and refused to go to the ER since she felt better. Otherwise no other new events. She forgot her bp log and is going to send it electronically. She has not seen her pcp for anxiety management. She was tearful in the exam room stating her anxiety is out of control and she obsesses on many stressors. She has stopped her ativan. She is also worried about memory--she often repeats herself or forgets details of conversation. She smokes mariajuana daily and is worried it is that. She also smokes cigarettes but is down to <1PPD. She got her mammogram and is willing to get the ultrasound. Prior encounter: To start- Pt stated having TIAs 24 years ago. Her first episode was due to problems with word finding and speech. This lasts for a couple of minutes and then she feels off for a day or so. She wentto the ER once for this and was told she was having TIAs but never got a brain MRI. She had about 15 of these episodes, but this has mostly resolved since the separation of her . She hadn't had one since 2014 until late last year when her daughter, who she lives with, went out of town. She was taking care of the dog and felt overwhelmed and noticed her speech became altered. She also thinks she had syncope on the toilet during that time. She didn't go to the ED until 2 weeks later after telling the story to her PCP. They did a CT scan that then showed chronic infarcts but no acute or subacute infarcts. She did not want to stay for an MRI. She has no hx of HTN but noticed at a family gathering that her bp was high because her family member is a nurse and took it. She denies hx of DM. She smokes about 8 cigarettes a day. She has no hx of seizures. She does have a hx of CHF and tachcardia and is on atenolol for the fast heart rate. Shedenies any hx of cardiac monitoring or dx of afib. She does have palpitations. She has not ever hada mammogram or colonoscopy. In April, she started having facial and entire body ticks. It was so bad where her left arm was 'out of control'. She went to the ER and was unable to see a neurologist but was started on ativan and benedryl which resolved that. ROS: A 10-pt ROS was performed. Pertinent negatives include no visual disturbances, no vertigo, no weakness, no sensory disturbance, and no difficulty with gait. All other systems were reviewed and negative. Allergies: No Known Allergies Home Medications: Current Outpatient Medications Medication aspirin EC (Aspirin 81) 81 MG tablet Gzkycac-Xsyqxwynhfrdq-Cnzhcvhv (HEADACHE FORMULA PO) atenolol (Tenormin) 25 MG tablet atorvastatin (Lipitor) 40 MG tablet diphenhydrAMINE (Benadryl) 25 MG tablet famotidine (Pepcid) 20 MG tablet ferrous sulfate 325 (65 FE) MG tablet LORazepam (Ativan) 0.5 MG tablet No current facility-administered medications for this visit. History-PMH, Family Hx, Social Hx: PMH: CHF Anxiety COPD Anemia-required transfusion Family History: Mother-aortic aneurysm Dad- CHF, CAD Social History: Denies alcohol use, Current smoker and Lives with family Relevant Results & Imaging: MRI: pending as of this note Vessel Imaging 01/2023 [facility] media tab: 0% stenosis of ANGEL and LICA. Small old lacunar infarcts bilateral caudate nuclei, left peritrigonal white matter and r cerebellar hemisphere Echo: none length control tester: Procedure Orders Mobile CV Telemetry [[id number]] ordered by Orion Winkler MD at 08/30/23 0933 Pre-procedure Diagnoses Palpitations [R00.2] Procedures OH REMOTE 30 DAY ECG REV/REPORT [[id number] (CPT??)] Read Date: 09/12/2023 Patient name: Kamini Christina Patient : 1960 Patient Age: [age] year old EVENT MONITOR REPORT: Indication for placement: Palpitations Requesting MD: Chen Cano Duration of monitorin days, 07/27/2023 to 08/25/2023 Available tracings are adequate for interpretation for 21d 02h 53m. 1. The mean average HR overall was: 76 bpm 2. The fastest HR noted was: 130 bpm 3. The slowest HR noted was: 49 bpm and occurred on 08/15 at 0419 4. 1096 premature ventricular complexes (PVCs) occurred (<1% of 2.3 million complexes). 10,023 premature atrial contractions (PACs) occurred <1% of the time. 5. Atrial fibrillation was not detected. Atrial fibrillation burden was 0 %. 6. No Pause(s) noted of 3 seconds or longer. Procedures: N/A Objective: Vitals: BP 165/82 Pulse 64 Resp 12 Wt 31.5 kg (69 lb 6.4 oz) General: Underweight pt resting comfortably in the chair in NAD Comprehensive Neurological Examination: - Mental status: Patient is alert and oriented to time, place, person and situation. - Speech: Fluent, with normal naming, comprehension, articulation and repetition - CN II-XII: Symmetrical facial movement. Hearing grossly intact. Strong cough, elevates palate, uvula midline. Strong shoulder shrug. Tongue midline. -Strength: 5/5 in UE and LE bilaterally -Sensory: intact light touch. -CV:RRR Assessment: Kamini Christina is a 63 year old y/o female who presents to the outpatient clinic for hx of stroke.As stated above, pt is having episodes I'm not sure are actual TIAs. They seem to worsen with stress and improve when stressors are controlled. With that being said, some of the symptoms are concerning. I let her know if this happens again, I want her to call 911 so she can be evaluated by a medical professional and obtain an MRI at that time. DDX could be seizures since it sounds like she had anaura this last episode. Will order EEG and get her scheduled with the seizure team. She has been symptom free for many months since this last episode in late jun/early july. MRI is still pending official read. Her CTA did not reveal any significant stenosis on OSH imaging, no need to be redone. 30day monitor without afib noted. Recommend working on factors such as checking bp every day at home and quitting smoking. She forgot her bp log but will email it to us. She continues on 81mg aspirin and atorvastatin for secondary prevention.Will hold off on the echo for now until we get the MRI. Depending on that, will likely consider echo with bubble if the strokes appear to be cortical or numerous. She is going to f/u with her pcp to discuss anxiety control as I don't think she should be routinely taking benadryl and ativan without trying SSRI, SNRI, wellbutrin etc. Will start buspar today and call her in 2 weeks to see how it is going. She agreed to f/u with pcp. We discussed the worrisome signs and symptoms that could indicate a stroke and pt agreed to seek emergent medical care ifthese occur. Discussed she should not drive due to her episodes of LOC. She VU. Stroke mechanism: likely SV disease, awaiting further work up. Diagnosis: I63.9 Cerebrovascular accident (CVA), unspecified mechanism (HCC) (primary encounter diagnosis) F41.9 Anxiety R68.89 Spells of decreased attentiveness Z13.9 Screening due R03.0 Elevated BP without diagnosis of hypertension Plan: Continue antiplatelet therapy with 81mg of aspirin daily Continue statin therapy Pt agreed to email bp log See pcp for anxiety management--buspar started as she waits for her appt Obtain breast u/s at the recommendation of mammogram Await brain MRI results Obtain EEG and schedule new pt appt with seizure team Educated pt on healthy lifestyle, medication compliance, and worrisome signs and symptoms to call 911 for. RTC depending on #6 and 7 Stroke Risk Factor Modification: - Goal BP <140/90 - Goal HbA1c <7 - Goal LDL <100 - Anti-platelet compliance - Physical Activity: 3-4x 40min sessions of aerobic exercise per week - Nutrition: diet rich in fruit and vegetables, reduction in sodium intake to <2.4g/d - Tobacco avoidance I personally spent 65 minutes on 10/25/2023 preparing to see the patient (e.g. reviewing chart, review of tests), obtaining and/or reviewing the separately obtained history, performing a medically necessary and appropriate examination and evaluation, counseling and educating the patient, documenting in the patient record, and communicating results to the patient/family/caregiver. documented in this encounter Plan of Treatment Scheduled Orders Name Type Priority Associated Diagnoses Orde r Schedule EEG EXTENDED MONITORING > 1 HOUR Neurology Routine Spells of decreased attentiveness 1 Occurrences starting 10/25/2023 until 10/24/2024 BREAST BILATERAL COMPLETE (SCREENING ONLY) Imaging Routine Screening due 1 Occurrences starting 10/25/2023 until 10/24/2024 Scheduled Referrals Name Type Priority Associated Diagnoses Orde r Schedule Ref to Neurology - [facility] Outpatient Referral Routine Spells of decreased attentiveness 1 Occurrences starting 10/25/2023 until 10/24/2024 documented as of this encounter Visit Diagnoses Diagnosis Cerebrovascular accident (CVA), unspecified mechanism (HCC)- Primary Anxiety Anxiety state, unspecified Spells of decreased attentiveness Other general symptoms Screening due Elevated BP without diagnosis of hypertension documented in this encounter Care Teams Weight Shifter Relationship Specialty Start Date End Date Ozzy Manriquez PA [address] [place] [address] PCP - General Physician Benzol Operator 03/22/23 documented as of this encounter
--- OUTSIDE RECORDS SUMMARY | 2024-05-28 02:28 | XMS_ITS | Encounter Summary ---
Author Organization [facility] Address [address] [place] [address] Care Team Providers Care Education And Outreach Coordinator Name Role Phone Ozzy Manriquez Primary Care Provider [phone] Reason for Referral * Radiology Services (Routine) - Closed Specialty Diagnoses / Procedures Referred By Luana isbell Referred To Contact Mammography Diagnoses Screening due Screening mammogram for breast cancer Procedures MAMMO BILAT SCREENING W CLAU Screening Mammogram Bilateral [facility] Breast Center Chen Cano PA-C [address] [place] [address] [facility] Breast Center Op [address] [place] [address] Referral ID Status Reason Start Date Expiration Date Visits Re quested Visits Authorized [id number] Closed 07/14/2023 07/13/2024 1 1 PARAMEDIC * Evaluate & Treat (Routine) - Open Specialty Diagnoses / Procedures Referred By Luana isbell Referred To Contact Surgery Diagnoses Screening due Colon cancer screening Chen Cano PA-C [address] [place] [address] [facility] Endoscopy [address] [place] [address] Referral ID Status Reason Start Date Expiration Date V isits Requested Visits Authorized [id number] Open Specialty Services Required 07/14/2023 07/13/2024 1 1 PARAMEDIC * Procedure (Routine) - Closed Specialty Diagnoses / Procedures Referred By Luana isbell Referred To Contact Cardiology Diagnoses Cerebrovascular accident (CVA), unspecified mechanism (HCC) Cerebral infarction, unspecified mechanism (HCC) Cerebral infarction due to embolism of anterior cerebral artery, unspecified blood vessel laterality (HCC) Procedures Cardiac Event Monitor [facility]-30 days [facility] Chen Cano PA-C [address] [place] [address] [facility] Car-Uct [address] [facility] [address] [place] [address] Referral ID Status Reason Start Date Expiration Date Visits Re quested Visits Authorized [id number] Closed 07/14/2023 07/13/2024 1 1 PARAMEDIC * Radiology Services (Routine) - Closed Specialty Diagnoses / Procedures Referred By Luana isbell Referred To Contact MRI Diagnoses Cerebrovascular accident (CVA), unspecified mechanism (HCC) Procedures MRI BRAIN WO CONTRAST Chen Cano PA-C [address] [facility] [address] [place] [address] [facility] Mri [address] [place] [address] Referral ID Status Reason Start Date Expiration Date Visits Re quested Visits Authorized [id number] Closed 07/14/2023 07/13/2024 1 1 PARAMEDIC Encounter Details Date Type Department Care Team (Latest Contact Info) Description 07/14/2023 11:00 AM EMT PARAMEDIC Office Visit [facility] - Neurology [address] [facility] [place] [address] Chen Cano PA-C [address] [place] [address] Cerebrovascular accident (CVA), unspecified mechanism (HCC) (Primary Dx); Screening due; Screening mammogram for breast cancer; Cerebral infarction, unspecified mechanism (HCC); Colon cancer screening; Cerebral infarction due to embolism of anterior cerebral artery, unspecified blood vessel laterality (HCC); Elevated BP without diagnosis of hypertension Social History Tobacco Use Types Packs/Day Years Used Date Smoking Tobacco: Every Day Cigarettes Smokeless Tobacco: Never Sex and Gender Information Value Date Recorded Sex Assigned at Not on file Gender Identity Not on file Sexual Orientation Not on file documented as of this encounter Last Filed Vital Signs Vital Sign Reading Time Taken Comments Blood Pressure 158/91 07/14/2023 11:01 AM EMT PARAMEDIC Pulse 78 07/14/2023 11:01 AM EMT PARAMEDIC Temperature - - Respiratory Rate 10 07/14/2023 11:01 AM EMT PARAMEDIC Oxygen Saturation - - Inhaled Oxygen Concentration - - Weight 32.6 kg (71 lb 12.8 oz) 07/14/2023 11:01 AM EMT PARAMEDIC Height 157.5 cm (5' 2 ) 07/14/2023 11:01 AM EMT PARAMEDIC Body Mass Index 13.13 07/14/2023 11:01 AM EMT PARAMEDIC documented in this encounter Patient Instructions * Patient Instructions* Chen Cano PA-C - 07/14/2023 11:53 AM EMT PARAMEDIC -Follow up with your primary care provider as routinely scheduled to monitor your blood pressure and yearly cholesterol labs. Please take your blood pressure at home daily. You should record each value and follow up with yourprimary care provider at your regularly scheduled visit to discuss if you need an adjustment to your treatment plan. If you notice you have blood pressures over 180 on the top or over 95 on the bottom consistently, you should call your primary care provider and make an appointment specifically for your blood pressure to be addressed. Long-term untreated high blood pressure can increase your risk of future strokes. -Follow up with our clinic in 3 months -If you have questions about this visit, please contact our nurse Mercedes at [phone]. -If additional testing/referrals were ordered, you will receive a call you to schedule this. If youhaven't heard from them in 2 weeks, please call [phone] -Take your medications as prescribed. If you [...] and go to the nearest emergency room. PARAMEDIC documented in this encounter Progress Notes * Chen Cano PA-C - 07/14/2023 11:00 AM CST Stroke Neurology Clinic Visit Note Date of Encounter: 07/14/2023 Chief Complaint: Hx of stroke and TIA HPI: Kamini Christina is a 63 year old y/o female who presents to the outpatient clinic for hx of stroke and TIA. To start- Pt stated having TIAs 24 [...] other systems were reviewed and negative. Allergies: Not on File Home Medications: Current Outpatient Medications Medication ??? aspirin EC (Aspirin 81) 81 MG tablet ??? Sffatzi-Salrndffdvzdn-Rcbrcnfk (HEADACHE FORMULA PO) ??? atenolol (Tenormin) 25 MG tablet ??? atorvastatin (Lipitor) 20 MG tablet ??? diphenhydrAMINE (Benadryl) 25 MG tablet ??? famotidine (Pepcid) 20 MG tablet ??? ferrous sulfate 325 (65 FE) MG tablet ??? LORazepam (Ativan) 0.5 MG tablet No current facility-administered medications for this visit. History-PMH, Family Hx, Social Hx: PMH: CHF Anxiety COPD Anemia-required transfusion Family History: Mother-aortic aneurysm Dad- CHF, CAD Social History: Denies alcohol use, Current smoker and Lives with family Relevant Results & Imaging: MRI: none Vessel Imaging 01/2023 [facility] media tab: 0% stenosis of ANGEL and LICA. Small old lacunar infarcts bilateral caudate nuclei, left peritrigonal white matter and r cerebellar hemisphere Echo: none Procedures: N/A Objective: Vitals: BP 158/91 Pulse 78 Resp 10 Ht 1.575 m (5' 2 ) Wt 32.6 kg (71 lb 12.8 oz) General: WDWN pt resting comfortably in the chair in NAD Comprehensive Neurological Examination: - Mental status: Patient is alert and oriented to time, place, person and situation. Underweight - Speech: Fluent, with normal naming, comprehension, [...] MRI at that time. DDX could be seizures, although seem much less likelyas well. She has been symptom free for many months. Due to her CTH indicating chronic strokes, willorder brain MRI to help quantify her previous strokes and monitor for microhemorrhages etc. Her CTAdid not reveal any significant stenosis on OSH imaging, no need to be redone. Will order 30 day emergency medical dispatcher due to her hx of palpitations. Recommend working on factors such as checking bp every day at home, quitting smoking, and avoiding DM. She should start a 81mg aspirin and atorvastatin for secondary prevention. Due to her small nature, will start with 20mg atorvastatin first and if she tolerates this we can increase to 40. She is taking migraine medicine 4x a day which I told her tostop. She said she was not taking it for headaches but that it made her feel good so she just took it. She will schedule her colonoscopy and mammogram as cancer can cause a hypercoagulable state and i ncrease risk of stroke. Will hold off on the echo for now until we get the MRI. Depending on that, will likely consider echo with bubble if the strokes appear to be cortical or numerous. She is goingto f/u with her pcp to discuss anxiety control as I don't think she should be routinely taking benadryl and ativan without trying SSRI, SNRI, wellbutrin etc. She is going to get the above work up andf/u in 3 months. We discussed the worrisome signs and symptoms that could indicate a stroke and pt agreed to seek emergent medical care if these occur. Stroke mechanism: likely SV disease, awaiting further work up. Diagnosis: I63.9 Cerebrovascular accident (CVA), unspecified mechanism (CMS-HCC) (primary encounter diagnosis) Z13.9 Screening due Z12.31 Screening mammogram for breast cancer I63.9 Cerebral infarction, unspecified mechanism (CMS-HCC) Z12.11 Colon cancer screening I63.429 Cerebral infarction due to embolism of anterior cerebral artery, unspecified blood vessel laterality (CMS-HCC) R03.0 Elevated BP without diagnosis of hypertension Plan: 1. Start antiplatelet therapy with 81mg of aspirin daily 2. Start statin therapy-will increase to 40mg once she tolerates 20mg 3. Start bp log 4. See pcp for anxiety management 5. Obtain mammogram and colonoscopy 6. Obtain 30 day event monitor 7. Obtain MRI brain 8. Educated pt on healthy lifestyle, medication compliance, and worrisome signs and symptoms to call 911 for. 9. RTC 3 months Stroke Risk Factor Modification: - Goal BP <140/90 - Goal HbA1c <7 - Goal LDL <100 - Anti-platelet compliance - Physical Activity: 3-4x 40min sessions of aerobic exercise per week - Nutrition: diet rich in fruit and vegetables, reduction in sodium intake to <2.4g/d - Tobacco avoidance I personally spent 60 minutes on 07/14/2023 preparing to see the patient (e.g. reviewing chart, review of tests), obtaining and/or reviewing the separately obtained history, performing a medically necessary and appropriate examination and evaluation, counseling and educating the patient, documentingin the patient record, and communicating results to the patient/family/caregiver. PARAMEDIC documented in this encounter Plan of Treatment Scheduled Orders Name Type Priority Associated Diagnoses Orde r Schedule Cardiac Event Monitor Hookup-30 days [facility] ECG Routine Cerebrovascular accident (CVA), unspecified mechanism (HCC) Cerebral infarction, unspecified mechanism (HCC) Cerebral infarction due to embolism of anterior cerebral artery, unspecified blood vessel laterality (HCC) 1 Occurrences starting 07/14/2023 until 07/14/2024 Scheduled Referrals Name Type Priority Associated Diagnoses Order Schedule Ref to [facility] Outpatient Referral Routine Screening due Colon cancer screening 1 Occurrences starting 07/14/2023 until 07/14/2024 documented as of this encounter Results * MRI BRAIN WO CONTRAST (10/20/2023 4:39 PM CDT) Anatomical Region Laterality Modality Head Magnetic Resonan ce 10/29/2023 3:22 PM CDT Impressions 10/29/2023 5:25 PM CDT IMPRESSION: No acute intracranial process including hemorrhage or infarction. Mild to moderate burden of chronic ischemic small vessel disease noted. The report was drafted by Mary Ervin MD (Waterproofing Mixer). IElda MD have personally reviewed and interpreted this examination/study. > Interpreting Provider: Elda Hardy MD on 10/29/2023 5:25 PM Narrative 10/29/2023 5:25 PM CDT PROCEDURE: ??MRI BRAIN WO CONTRAST, DATE/TIME OF EXAM: ??10/20/2023 4:39 PM, LOCATION ??[facility] INDICATION: I63.9: Cerebrovascular accident (CVA), unspecified mechanism [...] CONTRAST, DATE/TIME OF EXAM: 10/20/2023 4:39PM, LOCATION [facility] INDICATION: I63.9: Cerebrovascular accident (CVA), unspecified mechanism [...] report was drafted by Mary Ervin MD (Waterproofing Mixer). Elda Lange MD have personally reviewed and interpreted this examination/study. > Interpreting Provider: Elda Hardy MD on 10/29/2023 5:25 PM Chen A Overberg PA-C MR ORDERABLES * MAMMO BILAT SCREENING W CLAU (07/27/2023 11:07 AM EMT PARAMEDIC) Anatomical Region Laterality Modality Breast Bilateral Mammography 07/27/2023 2:38 PM EMT PARAMEDIC Impressions 07/27/2023 3:56 PM EMT PARAMEDIC : ??No mammographic evidence of malignancy. Extremely dense breast parenchyma. RECOMMENDATION: 1. Screening mammography in one year, pending no interval breast concerns. 2. Given the extremely dense breast parenchyma, consider annual complete breast ultrasound or breast MRI scan for supplemental screening. OVERALL ASSESSMENT: ??BI-RADS CATEGORY 1: NEGATIVE. Report dictated by Clarke Kendrick MD, MD (residential roofer helper). I, Veena Snowden DO have personally reviewed and interpreted this examination/study. > Interpreting Provider: Veena Snowden DO on 07/27/2023 3:56 PM Narrative 07/27/2023 3:56 PM EMT PARAMEDIC EXAMINATIONS: ??BILATERAL DIGITAL SCREENING MAMMOGRAM AND BILATERAL BREAST TOMOSYNTHESIS WITH CAD LOCATION: [facility] EXAM DATE: ??07/27/2023 HISTORY: ??Screening. Family history [...] prior. ?? Chen Cano PA-C MAMMO ORDERABLES documented in this encounter Visit Diagnoses Diagnosis Cerebrovascular accident (CVA), unspecified mechanism (HCC)- Primary Screening due Screening mammogram for breast cancer Cerebral infarction, unspecified mechanism (HCC) Colon cancer screening Special screening for malignant neoplasms, colon Cerebral infarction due to embolism of anterior cerebral artery, unspecified blood vessel laterality (HCC) Elevated BP without diagnosis of hypertension Screening due Screening mammogram for breast cancer Cerebrovascular accident (CVA), unspecified mechanism (HCC) documented in this encounter Care Teams Education And Outreach Coordinator Relationship Specialty Start Date End Date zOzy Manriquez PA [address] [place] [address] PCP - General Physician Carbon Dioxide Operator 03/22/23 documented as of this encounter
--- OUTSIDE RECORDS SUMMARY | 2024-05-28 02:28 | XMS_ITS | Clinical Summary ---
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 Gender Identity Not on file Sexual Orientation Not on file Plan of Treatment Health Maintenance Due Date Last Done Comments DEXA Bone Density 1960 Hepatitis C Virus (HCV) Screening 1958 TdaP Immunization 1958 Pap Smear 1979 Cervical Cancer Screening (CCS) 1988 HPV/Cotest 1988 Colonoscopy 2003 Colorectal Cancer Screening 2003 Cologuard 2008 Immunochemical Fecal Occult Blood 2008 Zoster Immunization (1 of 2) 2008 Mammogram 04/19/2020 04/19/2018 SARS-COV-2 Immunization ( - 2022- season) 2023 04/25/2021, 08/30/2020, 07/26/2020 Pneumococcal Immunization (5 0+ years) (1 of 1 - PCV) 2023 Influenza Immunization (#1) 2024 Hepatitis B Immunization Aged Out No longer eligible based on patient's age to complete this topic Meningococcal Immunization (ACWY) Aged Out No longer eligible b ased on patient's age to complete this topic Rotavirus Immunization Aged Out No lo nger eligible based on patient's age to complete this topic Procedures Procedure Name Priority Date/Time Associated Diagnosis Comments DERRICK SCREENING BILATERAL DIGITAL W CAD Routine 04/19/2018 8:05 AM SILO WORKER Screening breast examination from Last 3 Months or Most Recently Relevant to Health Maintenance Results * DERRICK SCREENING BILATERAL DIGITAL W CAD (04/19/2018 8:05 AM SILO WORKER) Anatomical Region Laterality Modality breast Bilateral Mammography 04/19/2018 7:45 AM SILO WORKER Narrative 04/19/2018 10:25 AM SILO WORKER - DERRICK SCREENING BILATERAL DIGITAL W CAD BILATERAL DIGITAL SCREENING MAMMOGRAM WITH CAD WITH MEDIOLATERAL OBLIQUE CRANIOCAUDAL: 04/19/2018 The study was acquired using digital technology and interpreted from soft copy. ?? Current study was also evaluated with ICAD version 7.2. ?? CLINICAL: New baseline. Additional image taken on the RMLO in effort to obtain IMF due to the patient's asthenic body habitus. Patient history of severe emphysema/COPD, 2D exam only to limit any motion on the imaging. Patient has no complaints. No personal history of cancer. Paternal and maternal aunt had breast cancer. ?? COMPARISONS: No prior exams were available for comparison. ?? BREAST TISSUE:The tissue of both breasts is heterogeneously dense. This may lower the sensitivity of mammography. ?? FINDINGS: No significant masses, calcifications, or other findings are seen in either breast. ?? IMPRESSION: BI-RAD 1 ??NEGATIVE There is no mammographic evidence of malignancy. A 1 year screening mammogram is recommended. ?? The patient has been or will be contacted. ?? The patient will be entered into a reminder system with a target due date of 1 year for her next screening exam. Electronically signed by: Justa Bowling M.D. ? cruz/bob:04/19/2018 10:04:21 ?? Inflated Ball Molder: Christel Arechiga (Bethanie), [facility] letter sent: Normal Exam ?? Reading location: [facility] BI-RADS: 1 Negative Procedure Note Justa Bowling MD - 04/19/2018 - DERRICK SCREENING BILATERAL DIGITAL W CAD BILATERAL DIGITAL SCREENING MAMMOGRAM WITH CAD WITH MEDIOLATERAL OBLIQUE CRANIOCAUDAL: 04/19/2018 The study was acquired using digital technology and interpreted from soft copy. Current study was also evaluated with ICAD version 7.2. CLINICAL: New baseline. Additional image taken on the RMLO in effort to obtain IMF due to the patient's asthenic body habitus. Patient history of severe emphysema/COPD, 2D exam only to limit any motion on the imaging. Patient has no complaints. No personal history of cancer. Paternal and maternal aunt had breast cancer. COMPARISONS: No prior exams were available for comparison. BREAST TISSUE:The tissue of both breasts is heterogeneously dense. This may lower the sensitivity of mammography. FINDINGS: No significant masses, calcifications, or other findings are seen in either breast. IMPRESSION: BI-RAD 1 NEGATIVE There is no mammographic evidence of malignancy. A 1 year screening mammogram is recommended. The patient has been or will be contacted. The patient will be entered into a reminder system with a target due date of 1 year for her next screening exam. Electronically signed by: Justa arroyo/bob:04/19/2018 10:04:21 Inflated Ball Molder: Christel Arechiga (R), [facility] letter sent: Normal Exam Reading location: [facility] BI-RADS: 1 Negative Ozzy Manriquez PAC IMG MAMMO ORDERABLES Final Re sult from Last 3 Months or Most Recently Relevant to Health Maintenance Care Teams Rubber Insulator Relationship Specialty Start Date End Date Ozzy Manriquez, PAC [address] [place] [address] PCP - General Physician Dictating Machine Mechanic 04/05/18
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
--- OUTSIDE RECORDS SUMMARY | 2024-05-28 02:28 | XMS_ITS | Encounter Summary ---
Author Organization [facility] Health Address [address] [address] Care Team Providers Care Check Writer Name Role Phone Ozzy Manriquez Primary Care Provider [phone] Encounter Details Date Type Department Care Team (Latest Contact Info) Description 07/27/2023 Travel Social History Tobacco Use Types Packs/Day [...] on filedocumented in this encounter Care Teams Check Writer Relationship Specialty Start Date End Date Ozzy Manriquez PA [address] [place] [address] PCP - General Physician Obiee Report Developer 03/22/23 documented as of this encounter
--- OUTSIDE RECORDS SUMMARY | 2024-05-28 02:28 | XMS_ITS | Encounter Summary ---
Author Organization [facility] Address [address] [place] [address] Care Team Providers Care Executive Assistant To General Counsel Name Role Phone Ozzy Manriquez Primary Care Provider [phone] Encounter Details Date Type Department Care Team (Late st Contact Info) Description 05/28/2020 Lab Requisition [facility] Community Testing [facility] [address] [place] [address] [place] [address] [place] [address] Social History Tobacco Use Types Packs/Day Years Used Date Smoking Tobacco: Never Assessed Comments Unknown Sex and Gender Information Value Date Recorded Sex Assigned at Not on file Legal Sex Female 1:51 PM HAND CROWN POUNCER Gender Identity Not on file Sexual Orientation Not on file documented as of this encounter Plan of Treatment Not on file documented as of this encounter Procedures Procedure Name Priority Date/Time Associated Diagnosis Comments SARS-COV-2 PCR [facility] ONLY Routine 05/28/2020 9:25 AM HAND CROWN POUNCER documented in this encounter Visit Diagnoses Not on filedocumented in this encounter Care Teams Executive Assistant To General Counsel Relationship Specialty Start Date End Date Ozzy Manriquez PAC [address] [place] [id number] PCP - General Physician Fur Plucker 04/05/18 documented as of this encounter
--- OUTSIDE RECORDS SUMMARY | 2024-05-28 02:28 | XMS_ITS | Encounter Summary ---
Author Organization [facility] Address [address] [place] [address] Care Team Providers Care Home Health Provider Name Role Phone Ozzy Manriquez Primary Care Provider Encounter Details Date Type Department Care Team (Late st Contact Info) Description 05/28/2020 9:30 AM METALS ANALYST Rapid Evaluation [facility] Community Testing [facility] [address] [place] [address] Social History Tobacco Use Types Packs/Day Years Used Date Smoking Tobacco: Never Assessed Comments Unknown Sex and Gender Information Value Date Recorded Sex Assigned at Not on file Legal Sex Female 1:51 PM METALS ANALYST Gender Identity Not on file Sexual Orientation Not on file documented as of this encounter Plan of Treatment Not on file documented as of this encounter Visit Diagnoses Not on filedocumented in this encounter Care Teams Home Health Provider Relationship Specialty Start Date End Date Ozzy Manriquez PAC [address] [place] [address] PCP - General Physician Data Conversion Operator 04/05/18 documented as of this encounter
--- OUTSIDE RECORDS SUMMARY | 2024-05-28 02:28 | XMS_ITS | Encounter Summary ---
Author Organization [facility] Address [address] [place] [address] Phone Care Team Providers Care Single Needle Operator Name Role Phone Ozzy Manriquez PAC Primary Care Provider [phone] Reason for Referral * Radiology Services (Routine) - Closed Specialty Diagnoses / Procedures Referred By Contac t Referred To Contact Radiology Diagnoses Dyspnea, unspecified type Procedures XR CHEST 2 VIEWS Ozzy Manriquez, PAC [address] [place] [address] Phone: tel: fax: Referral ID Status Reason Start Date Expiration Date Visits Re quested Visits Authorized [id number] Closed 05/27/2019 1 1 TRONICS TECHNICIAN APPRENTICE Reason for Visit * Radiology Services (Routine) - Closed Specialty Diagnoses / Procedures Referred By Contac t Referred To Contact Radiology Diagnoses Dyspnea, unspecified type Procedures XR CHEST 2 VIEWS Ozzy Manriquez, PAC [address] [place] [address] Phone: tel: fax: Referral ID Status Reason Start Date Expiration Date Visits Re quested Visits Authorized [id number] Closed 05/27/2019 1 1 Encounter Details Date Type Department Care Team (Late st Contact Info) Description 05/27/2019 8:45 AM ELECTRONICS TECHNICIAN APPRENTICE - 05/27/2019 11:59 PM ELECTRONICS TECHNICIAN APPRENTICE Hospital Encounter [facility] Diagnostic Radiology [address] [place] [address] MitraOzzy, PAC [address] [place] [address] Discharge Disposition: Discharged to home or Selfcare Social History Tobacco Use Types Packs/Day Years Used Date Smoking Tobacco: Never Assessed Comments Unknown Sex and Gender Information Value Date Recorded Sex Assigned at Not on file Legal Sex Female 1:51 PM ELECTRONICS TECHNICIAN APPRENTICE Gender Identity Not on file Sexual Orientation Not on file documented as of this encounter Plan of Treatment Not on file documented as of this encounter Procedures Procedure Name Priority Date/Time Associated Diagnosis Comments XR CHEST 2 VIEWS Routine 05/27/2019 9:01 AM ELECTRONICS TECHNICIAN APPRENTICE Dyspnea, unspecified type documented in this encounter Results * XR CHEST 2 VIEWS (05/27/2019 9:01 AM ELECTRONICS TECHNICIAN APPRENTICE) Anatomical Region Laterality Modality Chest N/A Digital Radiogra phy 05/27/2019 1:37 PM ELECTRONICS TECHNICIAN APPRENTICE Impressions 05/27/2019 1:39 PM ELECTRONICS TECHNICIAN APPRENTICE IMPRESSION: ??No acute pulmonary findings. Narrative 05/27/2019 1:39 PM ELECTRONICS TECHNICIAN APPRENTICE EXAM DESCRIPTION: ??XR CHEST 2 VIEWS REASON FOR STUDY: ??Dyspnea for 1 month. ??Emphysema. TECHNIQUE: ??Frontal and lateral radiographic views of the chest acquired. COMPARISON: ??Chest 04/05/2018 FINDINGS: ??Heart size is normal. ??No vascular congestion. ??No airspace consolidation, pleural effusion, or pneumothorax. ?? Emphysematous changes. THIS IS AN ELECTRONICALLY VERIFIED FINAL REPORT 05/27/2019 1:37 PM - Electronically signed by Dwight Cardenas M.D. CS: RE D: ??05/27/2019 1:37 PM T: ??05/27/2019 1:37 PM Report ID: [id number] Reading Location: ??[id number] Procedure Note Dwight Cardenas MD - 05/27/2019 EXAM DESCRIPTION: XR CHEST 2 VIEWS REASON FOR STUDY: Dyspnea for 1 month. Emphysema. TECHNIQUE: Frontal and lateral radiographic views of the chest acquired. COMPARISON: Chest 04/05/2018 FINDINGS: Heart size is normal. No vascular congestion. No airspace consolidation, pleural effusion, or pneumothorax. Emphysematous changes. THIS IS AN ELECTRONICALLY VERIFIED FINAL REPORT 05/27/2019 1:37 PM - Electronically signed by Dwight Cardenas M.D. CS: RE Report ID: [id number] Reading Location: [place] [address] IMPRESSION: No acute pulmonary findings. Ozzy Manriquez PAC IMG DIAGNOSTIC ORDERABLES Fin al Result documented in this encounter Visit Diagnoses Diagnosis Dyspnea, unspecified type documented in this encounter Care Teams Single Needle Operator Relationship Specialty Start Date End Date Ozzy Manriquez, PAC [address] [place] [address] PCP - General Physician Putty Mixer And Applier 04/05/18 documented as of this encounter
--- OUTSIDE RECORDS SUMMARY | 2024-05-28 02:28 | XMS_ITS | Encounter Summary ---
Author Organization [facility] Health Address [address] [place] [address] Care Team Providers Care Early Learning Teacher Name Role Phone Ozzy Manriquez Primary Care Provider [phone] Encounter Details Date Type Department Care Team (Latest Contact Info) Description 10/20/2023 Travel Social History Tobacco Use Types Packs/Day [...] on filedocumented in this encounter Care Teams Early Learning Teacher Relationship Specialty Start Date End Date Ozzy Manriquez PA [address] [place] [address] PCP - General Physician Malt Liquors Sales Representative 03/22/23 documented as of this encounter
--- OUTSIDE RECORDS SUMMARY | 2024-05-28 02:28 | XMS_ITS | Encounter Summary ---
Author Organization [facility] Care Team Providers Care Culinary Instructor Name Role Phone Ozzy Manriquez Primary Care Provider [phone] Encounter Details Date Type Department Care Team (Latest Contact Info) Description 05/27/2019 Travel Social History Tobacco Use Types Packs/Day Years Used Date Smoking Tobacco: Never Assessed Comments Unknown Sex and Gender Information Value Date Recorded Sex Assigned at Not on file Legal Sex Female 1:51 PM BARK SCALER Gender Identity Not on file Sexual Orientation Not on file documented as of this encounter Plan of Treatment Not on file documented as of this encounter Visit Diagnoses Not on filedocumented in this encounter Care Teams Culinary Instructor Relationship Specialty Start Date End Date Ozzy Manriquez PAC [address] [place] [address] PCP - General Physician Seafood Farmer 04/05/18 documented as of this encounter
--- OUTSIDE RECORDS SUMMARY | 2024-05-28 02:28 | XMS_ITS | Encounter Summary ---
Author Organization [facility] Health Address [address] [place] [address] Care Team Providers Care Material Handler 1St Shift Name Role Phone Ozzy Manriquez Primary Care Provider [phone] Encounter Details Date Type Department Care Team (Latest Contact Info) Description 04/21/2023 Travel Social History Tobacco Use Types Packs/Day Years Used Date Smoking Tobacco: Never Assessed Sex and Gender Information Value Date Recorded Sex Assigned at Not on file Gender Identity Not on file Sexual Orientation Not on file documented as of this encounter Plan of Treatment Not on file documented as of this encounter Visit Diagnoses Not on filedocumented in this encounter Care Teams Material Handler 1St Shift Relationship Specialty Start Date End Date Ozzy Manriquez PA [address] [place] [address] PCP - General Physician Credit Checker 03/22/23 documented as of this encounter
--- OUTSIDE RECORDS SUMMARY | 2024-05-28 02:28 | XMS_ITS | Encounter Summary ---
Author Organization [facility] Health Address [address] [place] [address] Care Team Providers Care Associate Professor Of Economics Name Role Phone Ozzy Manriquez Primary Care Provider [phone] Encounter Details Date Type Department Care Team (Latest Contact Info) Description 10/25/2023 Travel Social History Tobacco Use Types Packs/Day [...] on filedocumented in this encounter Care Teams Associate Professor Of Economics Relationship Specialty Start Date End Date Ozzy Manriquez PA [address] [place] [address] PCP - General Physician Shop Helper 03/22/23 documented as of this encounter
--- OUTSIDE RECORDS SUMMARY | 2024-05-28 02:28 | XMS_ITS | Encounter Summary ---
Author Organization [facility] Address [address] [facility] [place] [address] Care Team Providers Care Oracle Endeca Consultant Name Role Phone Ozzy Manriquez Primary Care Provider [phone] Encounter Details Date Type Department Care Team (Late st Contact Info) Description 08/12/2023 Orders Only [facility] - Neurology [address] [facility], [place] [address] Chen Cano PA-Cristine [address] [facility] [address] [place] [address] Social History Tobacco Use Types Packs/Day Years [...] on filedocumented in this encounter Care Teams Oracle Endeca Consultant Relationship Specialty Start Date End Date Ozzy Manriquez PA [address] [place] [address] PCP - General Physician Mechanical Sound Technician 03/22/23 documented as of this encounter
--- OUTSIDE RECORDS SUMMARY | 2024-05-28 02:28 | XMS_ITS | Encounter Summary ---
Author Organization [facility] Health Address [address] [place] [address] Care Team Providers Care Patient Services Representative Name Role Phone Ozzy Manriquez Primary Care Provider [phone] Reason for Referral * Radiology Services (Routine) - Closed Specialty Diagnoses / Procedures Referred By Contac t Referred To Contact Mammography Diagnoses Screening due Screening mammogram for breast cancer Procedures MAMMO BILAT SCREENING W CLAU Screening Mammogram Bilateral [facility] Breast [place] [employer] Chen Cano PA-C [address] [place] [address] [facility] [address] [place] [address] Referral ID Status Reason Start Date Expiration Date Visits Re quested Visits Authorized [id number] Closed 07/14/2023 07/13/2024 1 1 SETTER Reason for Visit * Radiology Services (Routine) - Closed Specialty Diagnoses / Procedures Referred By Contac t Referred To Contact Mammography Diagnoses Screening due Screening mammogram for breast cancer Procedures MAMMO BILAT SCREENING W CLAU Screening Mammogram Bilateral [facility] Breast [place] [employer] Chen Cano PA-C [address] [place] [address] [facility] Breast [place] [employer] [address] [place] [address] Referral ID Status Reason Start Date Expiration Date Visits Re quested Visits Authorized [id number] Closed 07/14/2023 07/13/2024 1 1 Encounter Details Date Type Department Care Team (Latest Contact Info) Description 07/27/2023 10:30 AM LEAD SETTER - 07/27/2023 11:59 PM LEAD SETTER Hospital Encounter [facility] [address] [place] [address] Chen Cano PA-C [address] [place] [address] Discharge Disposition: Home or Self Care Social History Tobacco Use Types Packs/Day Years Used Date Smoking Tobacco: Every Day Cigarettes Smokeless Tobacco: Never Sex and Gender Information Value Date Recorded Sex Assigned at Not on file Gender Identity Not on file Sexual Orientation Not on file documented as of this encounter Medications at Time of Discharge Medication Sig Dispensed Refills Start Date End Date aspirin EC (Aspirin 81) 81 MG tabletIndications:Cerebr ovascular accident (CVA), unspecified mechanism (HCC) Take 1 (one) tablet by mouth once daily 30 tablet 11 07/14/2023 Fauklsy-Ngfgygzisokke-Qz ffeine (HEADACHE FORMULA PO) Take 1 tablet by mouth once daily as needed atenolol (Tenormin) 25 MG tablet Take 1 (one) tablet by mouth once daily atorvastatin (Lipitor) 20 MG tabletIndications:Cerebr ovascular accident (CVA), unspecified mechanism (HCC) Take 1 (one) tablet by mouth once daily 30 tablet 07/14/2023 08/12/2023 diphenhydrAMINE (Benadryl) 25 MG tablet Take 1 (one) tablet by mouth once daily 10/25/2023 famotidine (Pepcid) 20 MG tablet Take 0.5 (one-half) tablet by mouth 2 times daily 05/02/2024 ferrous sulfate 325 (65 FE) MG tablet Take 1 (one) tablet by mouth every 2 days 05/02/2024 LORazepam (Ativan) 0.5 MG tablet Take 1 (one) tablet by mouth Takes 2 -3 times per day. 05/02/2024 documented as of this encounter Plan of Treatment Not on file documented as of this encounter Procedures Procedure Name Priority Date/Time Associated Diagnosis Comments MAMMO BILAT SCREENING W CLAU Routine 07/27/2023 11:07 AM LEAD SETTER Screening due Screening mammogram for breast cancer documented in this encounter Results * MAMMO BILAT SCREENING W CLAU (07/27/2023 11:07 AM LEAD SETTER) Anatomical Region Laterality Modality Breast Bilateral Mammography 07/27/2023 2:38 PM LEAD SETTER Impressions 07/27/2023 3:56 PM LEAD SETTER : ??No mammographic evidence of malignancy. Extremely dense breast parenchyma. RECOMMENDATION: 1. Screening mammography in one year, pending no interval breast concerns. 2. Given the extremely dense breast parenchyma, consider annual complete breast ultrasound or breast MRI scan for supplemental screening. OVERALL ASSESSMENT: ??BI-RADS CATEGORY 1: NEGATIVE. Report dictated by Clarke Kendrick MD, MD (client services vice president). I, Veena Snowden DO have personally reviewed and interpreted this examination/study. > Interpreting Provider: Veena Snowden DO on 07/27/2023 3:56 PM Narrative 07/27/2023 3:56 PM LEAD SETTER EXAMINATIONS: ??BILATERAL DIGITAL SCREENING MAMMOGRAM AND BILATERAL BREAST TOMOSYNTHESIS WITH CAD LOCATION: [facility] EXAM DATE: ??07/27/2023 HISTORY: ??Screening. Family history [...] documented in this encounter Visit Diagnoses Diagnosis Screening due Screening mammogram for breast cancer documented in this encounter Care Teams Patient Services Representative Relationship Specialty Start Date End Date Ozzy Manriquez PA [address] [place] [address] PCP - General Physician Roller Maker 03/22/23 documented as of this encounter
--- OUTSIDE RECORDS SUMMARY | 2024-05-28 02:28 | XMS_ITS | Encounter Summary ---
Author Organization [facility] Address [address] [place] [address] Phone Care Team Providers Care C2 Tactical Analysis Technician Name Role Phone Ozzy Manriquez Primary Care Provider [phone] Reason for Referral * Radiology Services (Routine) - Closed Specialty Diagnoses / Procedures Referred By Contac t Referred To Contact Radiology Diagnoses Dyspnea, unspecified type Procedures XR CHEST 2 VIEWS Ozzy Manriquez PAC [address] [place] [address] Phone: tel: fax: Referral ID Status Reason Start Date Expiration Date Visits Re quested Visits Authorized [id number] Closed 05/27/2019 1 1 [employer] Encounter Details Date Type Department Care Team (Late st Contact Info) Description 05/27/2019 Transcribe Orders [facility] Admitting [address] [place] [address] Ozzy Manriquez PAC [address] [place] [address] Dyspnea, unspecified type (Primary Dx) Social History Tobacco Use Types Packs/Day Years Used Date Smoking Tobacco: Never Assessed Comments Unknown Sex and Gender Information Value Date Recorded Sex Assigned at Not on file Legal Sex Female 1:51 PM [employer] Gender Identity Not on file Sexual Orientation Not on file documented as of this encounter Plan of Treatment Not on file documented as of this encounter Results * XR CHEST 2 VIEWS (05/27/2019 9:01 AM [employer]) Anatomical Region Laterality Modality Chest N/A Digital Radiogra phy 05/27/2019 1:37 PM [employer] Impressions 05/27/2019 1:39 PM [employer] IMPRESSION: ??No acute pulmonary findings. Narrative 05/27/2019 1:39 PM [employer] EXAM DESCRIPTION: ??XR CHEST 2 VIEWS REASON [...] PM T: ??05/27/2019 1:37 PM Report ID: [id number] Reading Location: ??[id number] Procedure Note Dwight Cardenas MD - 05/27/2019 [...] Dwight Cardenas M.D. CS: RE Report ID: [id number] Reading Location: [id number] IMPRESSION: No acute pulmonary findings. Ozzy Manriquez [facility] DIAGNOSTIC ORDERABLES Fin al Result * (ABNORMAL) CMP (COMPREHENSIVE METABOLIC PANEL) (05/27/2019 8:51 AM [employer]) SODIUM 136 136 - 144 mmol/L 05/27/2019 9:53 AM [facility] POTASSIUM 3.9 3.5 - 5.1 mmol/L 05/27/2019 9:53 AM [facility] CHLORIDE 99(L) 100 - 110 mmol/L 05/27/2019 9:53 AM [facility] CO2, VENOUS 24 22 - 32 mmol/L 05/27/2019 9:53 AM [facility] ANION GAP 16.9 8.0 - 20.0 mmol/L 05/27/2019 9:53 AM [facility] GLUCOSE 144(H) 70 - 99 mg/dL 05/27/2019 9:53 AM [facility] BUN 17 8 - 23 mg/dL 05/27/2019 9:53 AM [facility] CREATININE, BLOOD 0.92 0.60 - 1.10 mg/dL 05/27/2019 9:53 AM [facility] BUN/CREATININE RATIO 18 12 - 20 ratio 05/27/2019 9:53 AM [facility] TOTAL PROTEIN 7.1 6.0 - 8.3 g/dL 05/27/2019 9:53 AM [facility] ALBUMIN 4.3 3.5 - 5.2 g/dL 05/27/2019 9:53 AM [facility] Comment: The colormetric methods used for the determination of Albumin may lead to falsely elevated test results in patients suffering from renal failure or insufficiency due to interference with other proteins. A/G RATIO 1.5 1.0 - 2.0 05/27/2019 9:53 AM [facility] CALCIUM 9.6 8.9 - 10.3 mg/dL 05/27/2019 9:53 AM [facility] T BILI <=0.2 <=1.2 mg/dL 05/27/2019 9:53 AM [facility] SGOT (AST) 20 <=32 U/L 05/27/2019 9:53 AM [employer] [facility] SGPT (ALT) 11 <=33 U/L 05/27/2019 9:53 AM [employer] [facility] ALKALINE PHOSPHATASE 74 35 - 105 U/L 05/27/2019 9:53 AM [employer] [facility] GFR, EST. NONAFRICAN >60 >=60 05/27/2019 9:53 AM [employer] [facility] GFR, EST. >60 >=60 020 9:53 AM [employer] [facility] Comment: Creatinine Clearance is the preferred criteria for selecting drug dose adjustments in renally impaired patients. ??The GFR is provided as additional pertinent clinical information. GFR is reported in mL/min/1.73 sq m. Blood specimen (specimen) Butterfly Puncture / Unknown 05/27/2019 8:51 AM [employer] 05/27/2019 9:17 AM [employer] us Ozzy Manriquez PAC CHEMISTRY ORDERABLES Final Re sult [facility] [address] [place] [address] documented in this encounter Visit Diagnoses Diagnosis Dyspnea, unspecified type- Primary Dyspnea, unspecified type documented in this encounter Care Teams C2 Tactical Analysis Technician Relationship Specialty Start Date End Date Ozzy Manriquez, PAC [address] [place] [address] PCP - General Physician Hand Shoes Sewer 04/05/18 documented as of this encounter
--- OUTSIDE RECORDS SUMMARY | 2024-05-28 02:28 | XMS_ITS | Encounter Summary ---
Author Organization [facility] Health Address [address] [place] [address] Care Team Providers Care Casting House Laborer Name Role Phone Ozzy Manriquez Primary Care Provider [phone] Reason for Visit * Reason Onset Date Comments Results 07/28/2023 Encounter Details Date Type Department Care Team (Late Contact Info) Description 07/28/2023 Telephone [facility] - Neurology [address] [facility] [place] [address] Chen Cano PA-C [address] [facility] [address] [place] [address] Results Social History Tobacco Use Types Packs/Day Years Used Date Smoking Tobacco: Every Day Cigarettes Smokeless Tobacco: Never Sex and Gender Information Value Date Recorded Sex Assigned at Not on file Gender Identity Not on file Sexual Orientation Not on file documented as of this encounter Miscellaneous Notes * Telephone Encounter - Chen Cano PA-C - 07/28/2023 2:44 PM CABLE SUPERVISOR Called and spoke to pt's daughter about normal mammogram results. Pt is going through a lot of workup right now and would like to hold off on breast ultrasound for dense tissues until later. We meetagain in September and will discuss it then. Since pt has normal imaging, I think delaying the ultrasoundfor 2 months would not be problematic since pt has no symptoms. E SUPERVISOR documented in this encounter Plan of Treatment Not on file documented as of this encounter Visit Diagnoses Not on filedocumented in this encounter Care Teams Casting House Laborer Relationship Specialty Start Date End Date Ozzy Manriquez PA [address] [place] [address] PCP - General Physician Land Surveyor Manager 03/22/23 documented as of this encounter
--- OUTSIDE RECORDS SUMMARY | 2024-05-28 02:28 | XMS_ITS | Encounter Summary ---
Author Organization [facility] Address [address] [place] [address] Care Team Providers Care Floor Service Worker Spring Name Role Phone Ozzy Manriquez Primary Care Provider [phone] Reason for Visit * Radiology Services (Routine) - Closed Specialty Diagnoses / Procedures Referred By Contac t Referred To Contact MRI Diagnoses Cerebrovascular accident (CVA), unspecified mechanism (HCC) Procedures MRI BRAIN WO CONTRAST Chen Cano PA-C [address] [facility] [address] [place] [address] [facility] Mri [address] [place] [address] Referral ID Status Reason Start Date Expiration Date Visits Re quested Visits Authorized [id number] Closed 07/14/2023 07/13/2024 1 1 Encounter Details Date Type Department Care Team (Latest Contact Info) Description 10/20/2023 3:41 PM CDT - 10/20/2023 11:59 PM CDT Hospital Encounter [facility] MRI [address] [place] [address] Chen Cano PA-C [address] [facility] [address] [place] [address] Discharge Disposition: Home or Self Care Social [...] mouth once daily 30 tablet 11 07/14/2023 Nleorfh-Bexkdpcvbznxb-Sz ffeine (HEADACHE FORMULA PO) Take 1 tablet by mouth once daily as needed atenolol (Tenormin) 25 MG tablet Take 1 (one) tablet by mouth once daily atorvastatin (Lipitor) 40 MG tablet Take 1 (one) tablet by mouth once daily 100 tablet 4 08/12/2023 diphenhydrAMINE (Benadryl) 25 MG tablet Take [...] Procedure Name Priority Date/Time Associated Diagnosis Comments MRI BRAIN WO CONTRAST Routine 10/20/2023 4:39 PM CDT Cerebrovascular accident (CVA), unspecified mechanism (HCC) documented in this encounter Results * MRI BRAIN WO CONTRAST (10/20/2023 4:39 PM CDT) Anatomical Region Laterality Modality Head Magnetic Resonan ce 10/29/2023 3:22 PM CDT Impressions 10/29/2023 5:25 PM CDT IMPRESSION: No acute intracranial process including hemorrhage or infarction. Mild to moderate burden of chronic ischemic small vessel disease noted. The report was drafted by Mary Ervin MD (Auto Service Writer). I, Elda Hardy MD have personally reviewed and interpreted this examination/study. > Interpreting Provider: Elda Hardy MD on 10/29/2023 5:25 PM Narrative 10/29/2023 5:25 PM CDT PROCEDURE: ??MRI BRAIN WO CONTRAST, DATE/TIME OF EXAM: ??10/20/2023 4:39 PM, LOCATION ??[facility] INDICATION: I63.9: Cerebrovascular accident (CVA), unspecified mechanism [...] CONTRAST, DATE/TIME OF EXAM: 10/20/2023 4:39PM, LOCATION [facility] INDICATION: I63.9: Cerebrovascular accident (CVA), unspecified mechanism [...] report was drafted by Mary Ervin MD (Auto Service Writer). I, Elda Hardy MD have personally reviewed and interpreted this examination/study. > Interpreting Provider: Elda Hardy MD on 10/29/2023 5:25 PM Chen Cano PA-C MR ORDERABLES documented in this encounter Visit Diagnoses Diagnosis Cerebrovascular accident (CVA), unspecified mechanism (HCC) documented in this encounter Care Teams Floor Service Worker Spring Relationship Specialty Start Date End Date Ozzy Manriquez PA [address] [place] [address] PCP - General Physician Account Advisor 03/22/23 documented as of this encounter
--- OUTSIDE RECORDS SUMMARY | 2024-05-28 02:28 | XMS_ITS | Encounter Summary ---
Author Organization [facility] Address [address] [place] [address] Phone Care Team Providers Care Toll Testboard Worker Name Role Phone Ozzy Manriquez Primary Care Provider [phone] Reason for Referral * Radiology Services (Routine) - Closed Specialty Diagnoses / Procedures Referred By Contac t Referred To Contact Radiology Diagnoses Shortness of breath Procedures ADULT CV STRESS PHARMACOLOGIC W NUC MED Ozzy Manriquez PAC [address] [place] [address] Phone: tel: fax: Referral ID Status Reason Start Date Expiration Date Visits Re quested Visits Authorized [id number] Closed 05/26/2019 1 1 O SCRIPT WRITER Encounter Details Date Type Department Care Team (Late st Contact Info) Description 05/26/2019 Transcribe [facility] Scheduling [address] [place] [address] Ozzy Manriquez PAC [address] [place] [address] Shortness of breath (Primary Dx) Social History Tobacco Use Types Packs/Day Years Used Date Smoking Tobacco: Never Assessed Comments Unknown Sex and Gender Information Value Date Recorded Sex Assigned at Not on file Legal Sex Female 1:51 PM RADIO SCRIPT WRITER Gender Identity Not on file Sexual Orientation Not on file documented as of this encounter Plan of Treatment Scheduled Orders Name Type Priority Associated Diagnoses Orde r Schedule ADULT CV STRESS PHARMACOLOGIC W NUC MED Imaging Routine Shortness of breath Expected: 05/26/2019, Expires: 05/26/2020 documented as of this encounter Visit Diagnoses Diagnosis Shortness of breath- Primary documented in this encounter Care Teams Toll Testboard Worker Relationship Specialty Start Date End Date Ozzy Manriquez, PAC [address] [place] [address] PCP - General Physician Onsite Case Manager 04/05/18 documented as of this encounter
--- OUTSIDE RECORDS SUMMARY | 2024-05-28 02:28 | XMS_ITS | Encounter Summary ---
Author Organization [facility] Health Address [address] [facility] [place] [address] Care Team Providers Care Director Selection And Administration Name Role Phone Ozzy Manriquez Primary Care Provider [phone] Encounter Details Date Type Department Care Team (Latest Contact Info) Description 03/22/2023 Travel Social History Tobacco Use Types Packs/Day Years Used Date Smoking Tobacco: Never Assessed Sex and Gender Information Value Date Recorded Sex Assigned at Not on file Gender Identity Not on file Sexual Orientation Not on file documented as of this encounter Plan of Treatment Not on file documented as of this encounter Visit Diagnoses Not on filedocumented in this encounter Care Teams Director Selection And Administration Relationship Specialty Start Date End Date Ozzy Manriquez PA [address] [place] [address] PCP - General Physician Waste Chopper 03/22/23 documented as of this encounter
--- OUTSIDE RECORDS SUMMARY | 2024-05-28 02:28 | XMS_ITS | Encounter Summary ---
Author Organization [facility] Health Address [address] [facility] [place] [address] Care Team Providers Care Sales And Merchandising Associate Name Role Phone Ozzy Manriquez Primary Care Provider [phone] Encounter Details Date Type Department Care Team (Latest Contact Info) Description 03/30/2024 Travel Social History Tobacco Use Types Packs/Day [...] on filedocumented in this encounter Care Teams Sales And Merchandising Associate Relationship Specialty Start Date End Date Ozzy Manriquez PA [address] [place] [address] PCP - General Physician Artist Woodblock 03/22/23 documented as of this encounter
--- OUTSIDE RECORDS SUMMARY | 2024-05-28 02:28 | XMS_ITS | Encounter Summary ---
Author Organization [facility] Health Address [address] [facility] [place] [address] Care Team Providers Care Franchise Specialist Name Role Phone Ozzy Manriquez Primary Care Provider [phone] Reason for Visit * Reason Onset Date Comments Blood Pressure 10/26/2023 Encounter Details Date Type Department Care Team (Late st Contact Info) Description 10/26/2023 Telephone [facility] - [facility] [address] [facility] [place] [address] Chen Cano PA-C [facility] [facility] [address] [place] [address] Blood Pressure Social History Tobacco Use Types Packs/Day Years Used Date Smoking Tobacco: Every Day Cigarettes Smokeless Tobacco: Never Sex and Gender Information Value Date Recorded Sex Assigned at Not on file Gender Identity Not on file Sexual Orientation Not on file documented as of this encounter Miscellaneous Notes * Telephone Encounter - Lyndsay Arias LPN - 10/26/2023 9:40 AM CDT Blood pressure readings sent per pt's daughter, and scanned under the media tab, reviewed by JUVE Cano. Called pt's daughter and advised BP readings looked good overall and no new medication is needed at this time. We are hopeful the new anxiety med will help with some of the higher numbers. Pt's daughter verbalizes understanding and said she will let her mom know. She also said her mom started the new anxiety med this AM. documented in this encounter Plan of Treatment Not on file documented as of this encounter Visit Diagnoses Not on filedocumented in this encounter Care Teams Franchise Specialist Relationship Specialty Start Date End Date Ozzy Manriquez PA [address] [place] [address] PCP - General Physician Cafeteria Supervisor 03/22/23 documented as of this encounter
--- OUTSIDE RECORDS SUMMARY | 2024-05-28 02:28 | XMS_ITS | Encounter Summary ---
Author Organization [facility] Health Address [address] [facility] [place] [address] Care Team Providers Care Certified Nurse Practitioner Name Role Phone Ozzy Manriquez Primary Care Provider [phone] Reason for Visit * Reason Onset Date Comments Med Question 08/10/2023 Encounter Details Date Type Department Care Team (Late st Contact Info) Description 08/10/2023 Telephone [facility] [address] [facility] [place] [address] Chen Cano PA-C [facility] [facility] [address] [place] [address] Med Question Social History Tobacco Use Types Packs/Day Years Used Date Smoking Tobacco: Every Day Cigarettes Smokeless Tobacco: Never Sex and Gender Information Value Date Recorded Sex Assigned at Not on file Gender Identity Not on file Sexual Orientation Not on file documented as of this encounter Miscellaneous Notes * Telephone Encounter - Lyndsay Arias LPN - 08/12/2023 3:36 PM CDT Called pt's daughter and advised an Rx for atorvastatin 40mg QD was sent to her mom's pharmacy. Advised to watch for muscle aches and to contact our office if she has SE's. This nurse's direct phone number provided. * Telephone Encounter - Lyndsay Arias LPN - 08/12/2023 11:30 AM CDT Pancho Chen, The patient's daughter called to ask what is the plan for her statin? Please advise. * Telephone Encounter - Lyndsay Arias LPN - 08/10/2023 3:16 PM CDT Pt's daughter called back and left message stating her mom is tolerating the atorvastatin 20 well, with no side effects, and they had a conversation about increasing the dose to 40mg, as discussed ather last visit. She states if you think the pt should increase to 40mg daily then they are fine with that. They askif there are any issues they should watch for, and if not, then please send a new Rx. Please advise. * Telephone Encounter - Lyndsay Arias LPN - 08/10/2023 1:25 PM CDT Received refill request from pt's pharmacy for atorvastatin 20 mg. Called pt to see how she is tolerating this medication and if she would like to increase the dose, as was discussed at her OV with JUVE Cano. Left VM message requesting a return call and this nurse's direct phone number provided. documented in this encounter Plan of Treatment Not on file documented as of this encounter Visit Diagnoses Not on filedocumented in this encounter Care Teams Certified Nurse Practitioner Relationship Specialty Start Date End Date Ozzy Manriquez PA [address] [place] [address] PCP - General Physician Moving Worker 03/22/23 documented as of this encounter
--- OUTSIDE RECORDS SUMMARY | 2024-05-28 02:28 | XMS_ITS | Encounter Summary ---
Author Organization [facility] Health Address [address] [facility] [place] [address] Care Team Providers Care Headstart Teacher Name Role Phone Ozzy Manriquez Primary Care Provider [phone] Reason for Visit * Neurology (Routine) - Closed Specialty Diagnoses / Procedures Referred By Contac t Referred To Contact Neurology Diagnoses Spells of decreased attentiveness Procedures EEG EXTENDED MONITORING > 1 HOUR Chen Cano, TIANNAC [address] [facility] [address] [place] [address] Referral ID Status Reason Start Date Expiration Date Visits Re quested Visits Authorized [id number] Closed 10/25/2023 10/24/2024 1 1 Encounter Details Date Type Department Care Team (Latest Contact Info) Description 03/30/2024 1:25 PM STARBUCKS CLERK - 03/30/2024 11:[address] [facility] Hospital Encounter [facility] EEG/EMG [address] [place] [address] Pillo Dugan DO [address] [facility] [address] [place] [address] Discharge Disposition: Home or Self [...] mouth once daily 30 tablet 11 07/14/2023 Hnzmyru-Elhfyvnvfqdai-Bc ffeine (HEADACHE FORMULA PO) Take 1 tablet by mouth once daily as needed atenolol (Tenormin) 25 MG tablet Take 1 (one) tablet by mouth once daily atorvastatin (Lipitor) 40 MG tablet Take 1 (one) tablet by mouth once daily 100 tablet 4 08/12/2023 busPIRone (Buspar) 5 MG tabletIndications:Anxiet y Take 1 (one) tablet by mouth 2 times daily 60 tablet 10/25/2023 05/02/2024 famotidine (Pepcid) 20 MG tablet Take 0.5 (one-half) tablet by mouth 2 times daily 05/02/2024 ferrous sulfate 325 (65 FE) MG tablet Take 1 (one) tablet by mouth every 2 days 05/02/2024 LORazepam (Ativan) 0.5 MG tablet Take 1 (one) tablet by mouth Takes 2 -3 times per day. 05/02/2024 documented as of this encounter Procedure Notes * Pillo Dugan, DO - 03/30/2024 11:59 PM CST EEG REPORT Patient Name: Kamini Christina EEG#: [id number] Start Time: 03:01 PM 03/30/2024 Stop Time: 04:07 PM 03/30/2024 Clinical History: Kamini Christina is a 63 year old female with PMH of stroke and TIA who presented with loss of consciousness. This EEG is ordered to rule out seizures Current medications Current Medications aspirin EC (Aspirin 81) 81 MG tablet Take 1 (one) tablet by mouth once daily Ohhfkod-Auuiicavqsrvf-Bqksxcoe (HEADACHE FORMULA PO) Take 1 tablet by [...] (one) tablet by mouth every 2 days LORazepam (Ativan) 0.5 MG tablet Take 1 (one) tablet by mouth Takes 2 -3 times per day. Description This is a extended 21-channel EEG tracing consisting of 20 channels of EEG obtained from electrodesplaced on the scalp according to the international 10-20 system, T1 and T2 electrodes, and one channel of EKG monitoring. Background The awake background consisted of a posterior dominant rhythm up to 10 Hz and predominantly normal amplitude. Variability and reactivity were present. Stage 1 sleep was identified by attenuation of the posterior dominant rhythm. Hyperventilation and photic stimulation were not performed EKG was observed throughout the recording. IMPRESSION This is a normal awake and drowsy prolonged greater than 1 hour EEG. CLINICAL CORRELATION: No epileptiform abnormalities or electrographic seizures were seen during this recording. Savanna Alas MD I personally reviewed this study in its entirety and formulated the above report. Pillo Dugan DO BUCKS CLERK * Ronnie Rodriguez - 03/30/2024 4:38 PM CST Outpatient EEG completed. Pt tolerated well. BUCKS CLERK documented in this encounter Plan of Treatment Not on file documented as of this encounter Visit Diagnoses Diagnosis Spells of decreased attentiveness Other general symptoms documented in this encounter Care Teams Headstart Teacher Relationship Specialty Start Date End Date Ozzy Manriquez PA [address] [place] [address] PCP - General Physician Reinforcing Steel Placer 03/22/23 documented as of this encounter
--- OUTSIDE RECORDS SUMMARY | 2024-05-28 02:29 | XMS_ITS | CONTINUITY OF CARE DOCUMENT ---
Author Name elizabeth antoinenorman Address Unknown Organization [facility] Address [address] [facility] [facility] [address] [place] [address] Phone [phone] Care Team Providers Care Loan Specialist Name Role Phone Taiwo MARTINEZ, Ty Unavailable BIN MARTINEZ, LIA Unavailable Unav ailable INSURANCE PROVIDERS Payer name Policy type / Coverage type [place] red alliance party ID [facility] Care Thread [id number]
--- OUTSIDE RECORDS SUMMARY | 2024-05-28 05:05 | XMS_ITS | Patient Health Summary ---
Author Organization [facility] Address [address] [place] [address] Care Team Providers Care Haul Truck Driver Name Role Phone Ozzy Manriquez Primary Care Provider [phone] Note from [facility],non-owned Affiliates and Associated Physician Practices is amultiple site organization consisting of ambulatory clinics and hospital sitesin [place], [place], [place] and [place]. This disclosure is being madepursuant to the Care Everywhere program and may not contain all information available regarding this patient. Last updated 18.[facility] Allergies No known active allergies Medications * Be aware that medications may not be up to date on this document. Alwaysverify current medications with the patient. * atenolol (Tenormin) 25 MG tablet Take 1 (one) tablet by mouth once daily * Rhjmzgm-Cyqiuaqjajykp-Cbwmxybv (HEADACHE FORMULA PO) Take 1 tablet by [...] Comments Blood Pressure 156/92 05/02/2024 1:16 PM UTILITY SPECIALIST Pulse 62 05/02/2024 1:16 PM UTILITY SPECIALIST Temperature - - Respiratory Rate 12 10/25/2023 10:47 AM CDT Oxygen Saturation - - Inhaled Oxygen Concentration - - Weight 30.8 kg (68 lb) 05/02/2024 1:16 PM UTILITY SPECIALIST Height 157.5 cm (5' 2 ) 07/14/2023 11:01 AM UTILITY SPECIALIST Body Mass Index 12.44 07/14/2023 11:01 AM UTILITY SPECIALIST Procedures * MRI BRAIN WO CONTRAST(Performed 10/20/2023) Performed for Cerebrovascular accident (CVA), unspecified mechanism (HCC) * IA REMOTE 30 DAY ECG REV/REPORT(Performed 09/12/2023) Performed [...] report was drafted by Mary Ervin MD (Outside Machinist Supervisor). IElda MD have personally reviewed and interpreted this examination/study. > Interpreting Provider: Elda Hardy MD on 10/29/2023 5:25 PM Narrative 10/29/2023 5:25 PM CDT PROCEDURE: ??MRI BRAIN WO CONTRAST, DATE/TIME OF EXAM: ??10/20/2023 4:39 PM, LOCATION ??[facility] INDICATION: I63.9: Cerebrovascular accident (CVA), unspecified [...] CONTRAST, DATE/TIME OF EXAM: 10/20/2023 4:39PM, LOCATION [facility] INDICATION: I63.9: Cerebrovascular accident (CVA), unspecified [...] report was drafted by Mary Ervin MD (Outside Machinist Supervisor). I, Elda Hardy MD have personally reviewed and interpreted this examination/study. > Interpreting Provider: Elda Hardy MD on 10/29/2023 5:25 PM Chen Cano PA-C MR ORDERABLES * IA REMOTE 30 DAY ECG REV/REPORT (09/12/2023 9:33 [...] Final Interpretation: ?? No sustained arrhythmias. Orion Wiknler MD PROCEDURE/MINOR SURG ICAL ORDERABLES * CARDIAC PROCEDURE ORDER (08/04/2023) Only the most recent of2 resultswithin the time period is included. 08/04/2023 Narrative 08/04/2023 Ordered by an unspecified provider. Scanned Document CARDIAC SERVICES ORD ERABLES * MAMMO BILAT SCREENING W CLAU (07/27/2023 11:07 AM UTILITY SPECIALIST) Anatomical Region Laterality Modality Breast Bilateral Mammography 07/27/2023 2:38 PM UTILITY SPECIALIST Impressions 07/27/2023 3:56 PM UTILITY SPECIALIST : ??No mammographic evidence of malignancy. Extremely dense breast parenchyma. RECOMMENDATION: 1. Screening mammography in one year, pending no interval breast concerns. 2. Given the extremely dense breast parenchyma, consider annual complete breast ultrasound or breast MRI scan for supplemental screening. OVERALL ASSESSMENT: ??BI-RADS CATEGORY 1: NEGATIVE. Report dictated by Clarke Kendrick MD, (resident care provider). I, Veena Snowden DO have personally reviewed and interpreted this examination/study. > Interpreting Provider: Veena Snowden DO on 07/27/2023 3:56 PM Narrative 07/27/2023 3:56 PM UTILITY SPECIALIST EXAMINATIONS: ??BILATERAL DIGITAL SCREENING MAMMOGRAM AND BILATERAL BREAST TOMOSYNTHESIS WITH CAD LOCATION: [facility] EXAM DATE: ??07/27/2023 HISTORY: ??Screening. Family [...] Chen Cano PA-C MAMMO ORDERABLES Care Teams Haul Truck Driver Relationship Specialty Start Date End Date Ozzy Manriquez PA [address] [place] [address] PCP - General Physician Mds Coordinator 03/22/23
--- OUTSIDE RECORDS SUMMARY | 2024-05-28 05:05 | XMS_ITS | Encounter Summary ---
Author Organization [facility] Health Address [address] [facility] [place] [address] Care Team Providers Care Indigo Vat Tender Cloth Name Role Phone Ozzy Manriquez Primary Care Provider [phone] Reason for Visit * Reason Onset Date Comments Results 07/28/2023 Encounter Details Date Type Department Care Team (Late Contact Info) Description 07/28/2023 Telephone [facility] - Neurology [address] [facility] [place] [address] Chen Cano PA-C [address] [facility] [address] [place] [address] Results Social History Tobacco Use Types Packs/Day Years Used Date Smoking Tobacco: Every Day Cigarettes Smokeless Tobacco: Never Sex and Gender Information Value Date Recorded Sex Assigned at Not on file Gender Identity Not on file Sexual Orientation Not on file documented as of this encounter Miscellaneous Notes * Telephone Encounter - Chen Cano PA-C - 07/28/2023 2:44 PM SEWING DEPARTMENT SUPERVISOR Called and spoke to pt's daughter [...] be problematic since pt has no symptoms. NG DEPARTMENT SUPERVISOR documented in this encounter Plan of Treatment Not on file documented as of this encounter Visit Diagnoses Not on filedocumented in this encounter Care Teams Indigo Vat Tender Cloth Relationship Specialty Start Date End Date Ozzy Manriquez PA [address] [place] [address] PCP - General Physician Ladle Puller 03/22/23 documented as of this encounter
--- OUTSIDE RECORDS SUMMARY | 2024-05-28 05:05 | XMS_ITS | Encounter Summary ---
Author Organization [facility] Health Address [address] [place] [address] Care Team Providers Care Weight Loss Counselor Name Role Phone Ozzy Manriquez Primary Care Provider [phone] Encounter Details Date Type Department Care Team [...] on filedocumented in this encounter Care Teams Weight Loss Counselor Relationship Specialty Start Date End Date Ozzy Manriquez PA [address] [place] [address] PCP - General Physician Spiral Weaver 03/22/23 documented as of this encounter
--- OUTSIDE RECORDS SUMMARY | 2024-05-28 05:05 | XMS_ITS | Encounter Summary ---
Author Organization [facility] Health Address [address] [place] [address] Care Team Providers Care [place] Supervisor Name Role Phone Ozzy Manriquez Primary Care Provider [phone] Encounter Details Date Type Department Care Team [...] on filedocumented in this encounter Care Teams [place] Supervisor Relationship Specialty Start Date End Date Ozzy Manriquez PA [address] [place] [address] PCP - General Physician Senior Informatica Developer 03/22/23 documented as of this encounter
--- OUTSIDE RECORDS SUMMARY | 2024-05-28 05:05 | XMS_ITS | Encounter Summary ---
Author Organization [facility] Health Address [address] [place] [address] Care Team Providers Care Travel Med Surg Rn Name Role Phone Ozzy Manriquez Primary Care Provider [phone] Encounter Details Date Type Department Care Team [...] on filedocumented in this encounter Care Teams Travel Med Surg Rn Relationship Specialty Start Date End Date Ozzy Manriquez PA [address] [place] [address] PCP - General Physician Medical Dir 03/22/23 documented as of this encounter
--- OUTSIDE RECORDS SUMMARY | 2024-05-28 05:05 | XMS_ITS | CONTINUITY OF CARE DOCUMENT ---
Author Name elizabeth antoinenorman Address Unknown Organization [facility] Address [address] [place] [address] Phone [phone] Care Team Providers Care Health Science Instructor Name Role Phone Taiwo MARTINEZ, Ty Unavailable [phone] BIN MARTINEZ, LIA Unavailable Unav ailable INSURANCE PROVIDERS Payer name Policy type / Coverage type [place] red alliance party ID [facility] [employer] 9 [id number]
--- OUTSIDE RECORDS SUMMARY | 2024-05-28 05:05 | XMS_ITS | Encounter Summary ---
Author Organization [facility] Health Address [address] [place] [place] [address] Care Team Providers Care Parts Room Associate Name Role Phone Ozzy Manriquez Primary Care Provider [phone] Reason for Visit * Neurology (Routine) - Closed Specialty Diagnoses / Procedures Referred By Contac t Referred To Contact Neurology Diagnoses Spells of decreased attentiveness Procedures EEG EXTENDED MONITORING > 1 HOUR Chen Cano, TIANNAC [address] [facility] [address] [place] [address] Referral ID Status Reason Start Date Expiration Date Visits Re quested Visits Authorized [id number] Closed 10/25/2023 10/24/2024 1 1 Encounter Details Date Type Department Care Team (Latest Contact Info) Description 03/30/2024 1:25 PM SKEIN WASHER - 03/30/2024 11:59 PM [facility] Hospital Encounter [facility] EEG/EMG [address] [place] [address] Pillo Dugan DO [address] [facility] [address] [place] [address] Discharge Disposition: Home or Self [...] mouth once daily 30 tablet 11 07/14/2023 Esfnqak-Neqdbuyhuqvqt-Uu ffeine (HEADACHE FORMULA PO) Take 1 tablet [...] 1 (one) tablet by mouth once daily Lvzxbne-Yqtwlyvvcxbwu-Qtsyifcp (HEADACHE FORMULA PO) Take 1 tablet by [...] formulated the above report. Pillo Dugan DO N WASHER * Ronnie Rodriguez - 03/30/2024 4:38 PM CST Outpatient EEG completed. Pt tolerated well. N WASHER documented in this encounter Plan of Treatment Not on file documented as of this encounter Visit Diagnoses Diagnosis Spells of decreased attentiveness Other general symptoms documented in this encounter Care Teams Parts Room Associate Relationship Specialty Start Date End Date Ozzy Manriquez PA [address] [place] [address] PCP - General Physician Pickling Grader 03/22/23 documented as of this encounter
--- OUTSIDE RECORDS SUMMARY | 2024-05-28 05:05 | XMS_ITS | Encounter Summary ---
Author Organization [facility] Health Address [address] [facility] [place] [address] Care Team Providers Care Owner/Photographer Name Role Phone Ozzy Manriquez Primary Care Provider [phone] Reason for Referral * Radiology Services (Routine) - Closed Specialty Diagnoses / Procedures Referred By Luana isbell Referred To Contact Mammography Diagnoses Screening due Screening mammogram for breast cancer Procedures MAMMO BILAT SCREENING W CLAU Screening Mammogram Bilateral [facility] Breast Center Chen Cano PA-C [address] [facility] [address] [place] [address] [facility] [place] [facility] Breast [facility] Op [address] [place] [address] Referral ID Status Reason Start Date Expiration Date Visits Re quested Visits Authorized [id number] Closed 07/14/2023 07/13/2024 1 1 PAPER DELIVERY DRIVER * Evaluate & Treat (Routine) - Open Specialty Diagnoses / Procedures Referred By Luana isbell Referred To Contact Surgery Diagnoses Screening due Colon cancer screening Chen Cano PA-C [address] [place] [address] [facility] [place] [facility] Endoscopy [address] [place] [address] Referral ID Status Reason Start Date Expiration Date V isits Requested Visits Authorized [id number] Open Specialty Services Required 07/14/2023 07/13/2024 1 1 PAPER DELIVERY DRIVER * Procedure (Routine) - Closed Specialty Diagnoses / Procedures Referred By Luana isbell Referred To Contact Cardiology Diagnoses Cerebrovascular accident (CVA), unspecified mechanism (HCC) Cerebral infarction, unspecified mechanism (HCC) 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 [address] [place] [address] Referral ID Status Reason Start Date Expiration Date Visits Re quested Visits Authorized [id number] Closed 07/14/2023 07/13/2024 1 1 PAPER DELIVERY DRIVER * Radiology Services (Routine) - Closed Specialty Diagnoses / Procedures Referred By Luana isbell Referred To Contact MRI Diagnoses Cerebrovascular accident (CVA), unspecified mechanism (HCC) Procedures MRI BRAIN WO CONTRAST Chen Cano PA-C [address] [facility] [address] [place] [address] [facility] [place] [facility] Mri [address] [place] [address] Referral ID Status Reason Start Date Expiration Date Visits Re quested Visits Authorized [id number] Closed 07/14/2023 07/13/2024 1 1 PAPER DELIVERY DRIVER Encounter Details Date Type Department Care Team (Latest Contact Info) Description 07/14/2023 11:00 AM NEWSPAPER DELIVERY DRIVER Office Visit [facility]ician [facility] - Neurology [address] [facility] [place] [address] Chen Cano PA-C [address] [place] [address] Cerebrovascular accident (CVA), unspecified mechanism [...] Comments Blood Pressure 158/91 07/14/2023 11:01 AM NEWSPAPER DELIVERY DRIVER Pulse 78 07/14/2023 11:01 AM NEWSPAPER DELIVERY DRIVER Temperature - - Respiratory Rate 10 07/14/2023 11:01 AM NEWSPAPER DELIVERY DRIVER Oxygen Saturation - - Inhaled Oxygen Concentration - - Weight 32.6 kg (71 lb 12.8 oz) 07/14/2023 11:01 AM NEWSPAPER DELIVERY DRIVER Height 157.5 cm (5' 2 ) 07/14/2023 11:01 AM NEWSPAPER DELIVERY DRIVER Body Mass Index 13.13 07/14/2023 11:01 AM NEWSPAPER DELIVERY DRIVER documented in this encounter Patient Instructions * Patient Instructions* Chen Cano PA-C - 07/14/2023 11:53 AM NEWSPAPER DELIVERY DRIVER -Follow up with your primary care provider [...] visit, please contact our nurse Mercedes at [phone]. -If additional testing/referrals were ordered, you will receive a call you to schedule this. If youhaven't heard from them in 2 weeks, please call [phone] -Take your medications as prescribed. If you [...] and go to the nearest emergency room. PAPER DELIVERY DRIVER documented in this encounter Progress Notes * [...] EC (Aspirin 81) 81 MG tablet ??? Wnlzike-Dcrqhcnfiemsz-Ibqysodq (HEADACHE FORMULA PO) ??? atenolol (Tenormin) 25 [...] & Imaging: MRI: none Vessel Imaging 01/2023 [facility] media tab: 0% stenosis of [...] to be redone. Will order 30 day nurse monitoring due to her hx of palpitations. Recommend [...] record, and communicating results to the patient/family/caregiver. PAPER DELIVERY DRIVER documented in this encounter Plan of Treatment [...] Order Schedule Ref to GI Gastroenterology - [facility] Outpatient Referral Routine Screening due Colon cancer [...] noted. The report was drafted by Mary Evrin MD (Finisher Map And Chart). IElda MD have personally reviewed and interpreted this examination/study. > Interpreting Provider: Elda Hardy MD on 10/29/2023 5:25 PM Narrative 10/29/2023 5:25 PM CDT PROCEDURE: ??MRI BRAIN WO CONTRAST, DATE/TIME OF EXAM: ??10/20/2023 4:39 PM, LOCATION ??[facility] INDICATION: I63.9: Cerebrovascular accident (CVA), unspecified mechanism [...] CONTRAST, DATE/TIME OF EXAM: 10/20/2023 4:39PM, LOCATION [facility] INDICATION: I63.9: Cerebrovascular accident (CVA), unspecified mechanism [...] report was drafted by Mary Ervin MD (Finisher Map And Chart). Elda Lange MD have personally reviewed and interpreted this examination/study. > Interpreting Provider: Elda Hardy MD on 10/29/2023 5:25 PM Chen A Overberg PA-C MR ORDERABLES * MAMMO BILAT SCREENING W CLAU (07/27/2023 11:07 AM NEWSPAPER DELIVERY DRIVER) Anatomical Region Laterality Modality Breast Bilateral Mammography 07/27/2023 2:38 PM NEWSPAPER DELIVERY DRIVER Impressions 07/27/2023 3:56 PM NEWSPAPER DELIVERY DRIVER : ??No mammographic evidence of malignancy. Extremely dense breast parenchyma. RECOMMENDATION: 1. Screening mammography in one year, pending no interval breast concerns. 2. Given the extremely dense breast parenchyma, consider annual complete breast ultrasound or breast MRI scan for supplemental screening. OVERALL ASSESSMENT: ??BI-RADS CATEGORY 1: NEGATIVE. Report dictated by Clarke Kendrick MD, MD (residential door unit installer). I, Veena Snowden DO have personally reviewed and interpreted this examination/study. > Interpreting Provider: Veena Snowden DO on 07/27/2023 3:56 PM Narrative 07/27/2023 3:56 PM NEWSPAPER DELIVERY DRIVER EXAMINATIONS: ??BILATERAL DIGITAL SCREENING MAMMOGRAM AND BILATERAL BREAST TOMOSYNTHESIS WITH CAD LOCATION: [facility] EXAM DATE: ??07/27/2023 HISTORY: ??Screening. Family [...] (HCC) documented in this encounter Care Teams Owner/Photographer Relationship Specialty Start Date End Date Ozzy Manriquez PA [address] [place] [address] PCP - General Physician Cumulative Effects Analyst 03/22/23 documented as of this encounter
--- OUTSIDE RECORDS SUMMARY | 2024-05-28 05:05 | XMS_ITS | Encounter Summary ---
Author Organization [facility] Health Address [address] [place] [address] Care Team Providers Care Svp Operations Name Role Phone Ozzy Manriquez Primary Care Provider [phone] Encounter Details Date Type Department Care Team [...] on filedocumented in this encounter Care Teams Svp Operations Relationship Specialty Start Date End Date Ozzy Manriquez PA [address] [place] [address] PCP - General Physician Size Cutter 03/22/23 documented as of this encounter
--- OUTSIDE RECORDS SUMMARY | 2024-05-28 05:05 | XMS_ITS | Referral Summary ---
Author Organization [facility] [employer] Address [address] [place] [address] Care Team Providers Care Display Specialist Name Role Phone Ozzy Manriquez Primary Care Provider [phone] Source Comments [facility] [employer],non-owned Affiliates and Associated Physician Practices is amultiple site organization consisting of ambulatory clinics and hospital sitesin [place], [place], [place] and [place]. This disclosure is being madepursuant to the Care Everywhere program and may not contain all information available regarding this patient. Last updated 18.[facility] Encounters Date Type Department Care Team Description 05/02/2024 Travel 05/02/2024 1:30 PM ASSOCIATE DEAN OF WOMEN Office Visit [facility] - Neurology [address] [facility], [place] [address] Christel Calix APRN-HARVEY Depression, unspecified depression type (Primary Dx); Memory impairment 03/30/2024 Travel 03/30/2024 1:25 PM ASSOCIATE DEAN OF WOMEN - 03/30/2024 11:59 PM ASSOCIATE DEAN OF WOMEN Hospital Encounter [facility] EEG/EMG [address] [place] [id number] Pillo Dugan, DO Discharge Disposition: Home or [...] Comments Blood Pressure 156/92 05/02/2024 1:16 PM ASSOCIATE DEAN OF WOMEN Pulse 62 05/02/2024 1:16 PM ASSOCIATE DEAN OF WOMEN Temperature - - Respiratory Rate 12 10/25/2023 10:47 AM CDT Oxygen Saturation - - Inhaled Oxygen Concentration - - Weight 30.8 kg (68 lb) 05/02/2024 1:16 PM ASSOCIATE DEAN OF WOMEN Height 157.5 cm (5' 2 ) 07/14/2023 11:01 AM ASSOCIATE DEAN OF WOMEN Body Mass Index 12.44 07/14/2023 11:01 AM ASSOCIATE DEAN OF WOMEN Plan of Treatment Not on file Procedures Procedure Name Priority Date/Time Associated Diagnosis Comments MAMMO BILAT SCREENING W CLAU Routine 07/27/2023 11:07 AM ASSOCIATE DEAN OF WOMEN Screening due Screening mammogram for breast cancer from Last 3 Months or Most Recently Relevant to Health Maintenance Results * MAMMO BILAT SCREENING W CLAU (07/27/2023 11:07 AM ASSOCIATE DEAN OF WOMEN) Anatomical Region Laterality Modality Breast Bilateral Mammography 07/27/2023 2:38 PM ASSOCIATE DEAN OF WOMEN Impressions 07/27/2023 3:56 PM ASSOCIATE DEAN OF WOMEN : ??No mammographic evidence of malignancy. Extremely dense breast parenchyma. RECOMMENDATION: 1. Screening mammography in one year, pending no interval breast concerns. 2. Given the extremely dense breast parenchyma, consider annual complete breast ultrasound or breast MRI scan for supplemental screening. OVERALL ASSESSMENT: ??BI-RADS CATEGORY 1: NEGATIVE. Report dictated by Clarke Kendrick MD, MD (vice president industrial relations). I, Veena Snowden DO have personally reviewed and interpreted this examination/study. > Interpreting Provider: Veena Snowden DO on 07/27/2023 3:56 PM Narrative 07/27/2023 3:56 PM ASSOCIATE DEAN OF WOMEN EXAMINATIONS: ??BILATERAL DIGITAL SCREENING MAMMOGRAM AND BILATERAL BREAST TOMOSYNTHESIS WITH CAD LOCATION: [facility] EXAM DATE: ??07/27/2023 HISTORY: [...] Recently Relevant to Health Maintenance Care Teams Display Specialist Relationship Specialty Start Date End Date Ozzy Manriquez PA [address] [place] [address] PCP - General Physician Support Group Manager 03/22/23
--- OUTSIDE RECORDS SUMMARY | 2024-05-28 05:05 | XMS_ITS | Encounter Summary ---
Author Organization [facility] Address [address] [facility] [place] [address] Care Team Providers Care Shoe Puller Name Role Phone Ozzy Manriquez Primary Care Provider [phone] Reason for Referral * Evaluate & Treat (Routine) - Closed Specialty Diagnoses / Procedures Referred By Luana t Referred To Contact Neurology Diagnoses Spells of decreased attentiveness Cehn Cano PA-C [address] [facility] [address] [place] [address] [facility]l [address] [facility], [place] [address] Referral ID Status Reason Start Date Expiration Date V isits Requested Visits Authorized [id number] Closed Specialty Services Required 10/25/2023 10/24/2024 1 1 * Radiology Services (Routine) - Closed Specialty Diagnoses / Procedures Referred By Contrajesh t Referred To Contact Ultrasound Diagnoses Screening due Procedures US BREAST BILATERAL COMPLETE (SCREENING ONLY) Chen Cano PA-C [address] [facility] [address] [place] [address] Referral ID Status Reason Start Date Expiration Date Visits Re quested Visits Authorized [id number] Closed 10/25/2023 10/24/2024 1 1 * Neurology (Routine) - Closed Specialty Diagnoses / Procedures Referred By Luana t Referred To Contact Neurology Diagnoses Spells of decreased attentiveness Procedures EEG EXTENDED MONITORING > 1 HOUR Chen Cano PA-C [address] [facility] [address] [place] [address] Referral ID Status Reason Start Date Expiration Date Visits Re quested Visits Authorized [id number] Closed 10/25/2023 10/24/2024 1 1 Encounter Details Date Type Department Care Team (Latest Contact Info) Description 10/25/2023 11:00 AM CDT Office Visit [facility] - Neurology [address] [place] [address], [place] [address] Chen Cano PA-C [address] [facility] [address] [place] [address] Cerebrovascular accident (CVA), unspecified mechanism [...] Body Mass Index 12.69 07/14/2023 11:01 AM MANAGER OF PLANNING documented in this encounter Patient Instructions * Patient Instructions* hCen Cano PA-C - 10/25/2023 12:05 PM CDT [...] visit, please contact our nurse Mercedes at [phone]. -If additional testing/referrals were ordered, you will receive a call you to schedule this. If youhaven't heard from them in 2 weeks, please call [phone] -Take your medications as prescribed. If you [...] aspirin EC (Aspirin 81) 81 MG tablet Uiirxwx-Deeuponxvrkhb-Gwwpyezw (HEADACHE FORMULA PO) atenolol (Tenormin) 25 MG [...] as of this note Vessel Imaging 01/2023 [facility] media tab: 0% stenosis of ANGEL and LICA. 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
--- OUTSIDE RECORDS SUMMARY | 2024-05-28 05:05 | XMS_ITS | Encounter Summary ---
Author Organization [facility] Health Address [address] [facility] [place] [address] Care Team Providers Care Deboning Team Leader Name Role Phone Ozzy Manriquez Primary Care Provider Reason for Referral * Radiology Services (Routine) - Closed Specialty Diagnoses / Procedures Referred By Contac t Referred To Contact Mammography Diagnoses Screening due Screening mammogram for breast cancer Procedures MAMMO BILAT SCREENING W CLAU Screening Mammogram Bilateral [facility] Breast [place] Chen Cano PA-C [address] [place] [address] [facility] [address] [place] [address] Referral ID Status Reason Start Date Expiration Date Visits Re quested Visits Authorized [id number] Closed 07/14/2023 07/13/2024 1 1 ADVOCATE Reason for Visit * Radiology Services (Routine) - Closed Specialty Diagnoses / Procedures Referred By Contac t Referred To Contact Mammography Diagnoses Screening due Screening mammogram for breast cancer Procedures MAMMO BILAT SCREENING W LCAU Screening Mammogram Bilateral [facility] Breast [place] Chen Cano PA-C [address] [place] [address] [facility] Breast [place] [address] [place] [address] Referral ID Status Reason Start Date Expiration Date Visits Re quested Visits Authorized [id number] Closed 07/14/2023 07/13/2024 1 1 Encounter Details Date Type Department Care Team (Latest Contact Info) Description 07/27/2023 10:30 AM CASE ADVOCATE - 07/27/2023 11:59 PM CASE ADVOCATE Hospital Encounter [facility] [address] [place] [address] Chen Cano PA-C [address] [place] [address] Discharge Disposition: Home or Self Care Social [...] mouth once daily 30 tablet 11 07/14/2023 Prhkzvq-Zvpdtlvtkpeci-Mt ffeine (HEADACHE FORMULA PO) Take 1 tablet [...] SCREENING W CLAU Routine 07/27/2023 11:07 AM CASE ADVOCATE Screening due Screening mammogram for breast cancer documented in this encounter Results * MAMMO BILAT SCREENING W CLAU (07/27/2023 11:07 AM CASE ADVOCATE) Anatomical Region Laterality Modality Breast Bilateral Mammography 07/27/2023 2:38 PM CASE ADVOCATE Impressions 07/27/2023 3:56 PM CASE ADVOCATE : ??No mammographic evidence of malignancy. Extremely dense breast parenchyma. RECOMMENDATION: 1. Screening mammography in one year, pending no interval breast concerns. 2. Given the extremely dense breast parenchyma, consider annual complete breast ultrasound or breast MRI scan for supplemental screening. OVERALL ASSESSMENT: ??BI-RADS CATEGORY 1: NEGATIVE. Report dictated by Clarke Kendrick MD, MD (president finance company). I, Veena Snowden DO have personally reviewed and interpreted this examination/study. > Interpreting Provider: Veena Snowden DO on 07/27/2023 3:56 PM Narrative 07/27/2023 3:56 PM CASE ADVOCATE EXAMINATIONS: ??BILATERAL DIGITAL SCREENING MAMMOGRAM AND BILATERAL BREAST TOMOSYNTHESIS WITH CAD LOCATION: [facility] EXAM DATE: ??07/27/2023 HISTORY: [...] cancer documented in this encounter Care Teams Deboning Team Leader Relationship Specialty Start Date End Date Ozzy Manriquez PA [address] [place] [address] PCP - General Physician Institutional Research Director 03/22/23 documented as of this encounter
--- OUTSIDE RECORDS SUMMARY | 2024-05-28 05:05 | XMS_ITS | Encounter Summary ---
Author Organization [facility] Address [address] [facility] [place] [address] Care Team Providers Care Gripper Installer Name Role Phone Ozzy Manriquez Primary Care Provider [phone] Encounter Details Date Type Department Care Team [...] on filedocumented in this encounter Care Teams Gripper Installer Relationship Specialty Start Date End Date Ozzy Manriquez PA [address] [place] [address] PCP - General Physician Director Sanitation Bureau 03/22/23 documented as of this encounter
--- OUTSIDE RECORDS SUMMARY | 2024-05-28 05:05 | XMS_ITS | Encounter Summary ---
Author Organization [facility] Health Address [address] [place] [address] Care Team Providers Care Chief Scientist Name Role Phone Ozzy Manriquez Primary Care Provider [phone] Reason for Visit * Reason Onset Date Comments Blood Pressure 10/26/2023 Encounter Details Date Type Department Care Team (Late st Contact Info) Description 10/26/2023 Telephone [facility] - Neurology [address] [facility], [place] [address] Chen Cano PA-C [facility] [facility] [address] [place] [address] Blood Pressure Social History Tobacco [...] on filedocumented in this encounter Care Teams Chief Scientist Relationship Specialty Start Date End Date Ozzy Manriquez PA [address] [place] [address] PCP - General Physician Wildland Fire Fighter 03/22/23 documented as of this encounter
--- OUTSIDE RECORDS SUMMARY | 2024-05-28 05:05 | XMS_ITS | Encounter Summary ---
Author Organization [facility] Address [address] [facility] [place] [address] Care Team Providers Care Intelligence Engineer Name Role Phone Ozzy Manriquez Primary Care Provider [phone] Reason for Visit * Radiology Services (Routine) - Closed Specialty Diagnoses / Procedures Referred By Contac t Referred To Contact MRI Diagnoses Cerebrovascular accident (CVA), unspecified mechanism (HCC) Procedures MRI BRAIN WO CONTRAST Chen Cano PA-C [address] [facility] [address] [place] [address] [facility] Mri [address] [place] [address] Referral ID Status Reason Start Date Expiration Date Visits Re quested Visits Authorized [id number] Closed 07/14/2023 07/13/2024 1 1 Encounter Details Date Type Department Care Team (Latest Contact Info) Description 10/20/2023 3:41 PM CDT - 10/20/2023 11:59 PM CDT Hospital Encounter [facility] MRI [address] [place] [address] Chen Cano PA-C [address] [facility] [address] [place] [address] Discharge Disposition: Home or Self [...] mouth once daily 30 tablet 11 07/14/2023 Javjqcw-Irbsaxhhvzoqk-Vk ffeine (HEADACHE FORMULA PO) Take 1 tablet [...] report was drafted by Mary Ervin MD (Industrial Registered Nurse). I, Elda Hardy MD have personally reviewed and interpreted this examination/study. > Interpreting Provider: Elda Hardy MD on 10/29/2023 5:25 PM Narrative 10/29/2023 5:25 PM CDT PROCEDURE: ??MRI BRAIN WO CONTRAST, DATE/TIME OF EXAM: ??10/20/2023 4:39 PM, LOCATION ??[facility] INDICATION: I63.9: Cerebrovascular accident (CVA), unspecified [...] CONTRAST, DATE/TIME OF EXAM: 10/20/2023 4:39PM, LOCATION [facility] INDICATION: I63.9: Cerebrovascular accident (CVA), unspecified [...] report was drafted by Mary Ervin MD (Industrial Registered Nurse). I, Elda Hadry MD have personally reviewed and interpreted this examination/study. > Interpreting Provider: Elda Hardy MD on 10/29/2023 5:25 PM Chen Cano PA-C MR ORDERABLES documented in this encounter Visit Diagnoses Diagnosis Cerebrovascular accident (CVA), unspecified mechanism (HCC) documented in this encounter Care Teams Intelligence Engineer Relationship Specialty Start Date End Date Ozzy Manriquez PA [address] [place] [address] PCP - General Physician Acidizer Water Well 03/22/23 documented as of this encounter
--- OUTSIDE RECORDS SUMMARY | 2024-05-28 05:05 | XMS_ITS | Clinical Summary ---
Author Organization [facility] [employer] Address [address] [facility] [address] [place] [address] Care Team Providers Care Chemical Research Worker Name Role Phone Ozzy Manriquez Primary Care Provider [phone] Source Comments [facility] [employer],non-owned Affiliates and Associated Physician Practices is amultiple site organization consisting of ambulatory clinics and hospital sitesin [place] and [place]. This disclosure is being madepursuant to the Care Everywhere program and may not contain all information available regarding this patient. Last updated 18.[employer] Allergies No known active allergies Medications * [...] Department Care Team Description 05/02/2024 1:30 PM PSYCHIATRIC SECRETARY Office Visit [facility] - Neurology [address] [facility], [place] [address] Christel Calix APRN-HARVEY Depression, unspecified depression type (Primary Dx); Memory impairment 05/02/2024 Travel 03/30/2024 1:25 PM PSYCHIATRIC SECRETARY - 03/30/2024 11:59 PM PSYCHIATRIC SECRETARY Hospital Encounter [facility] EEG/EMG [address] [place] [address] Pillo Dugan, DO Discharge Disposition: Home or [...] Comments Blood Pressure 156/92 05/02/2024 1:16 PM PSYCHIATRIC SECRETARY Pulse 62 05/02/2024 1:16 PM PSYCHIATRIC SECRETARY Temperature - - Respiratory Rate 12 10/25/2023 10:47 AM CDT Oxygen Saturation - - Inhaled Oxygen Concentration - - Weight 30.8 kg (68 lb) 05/02/2024 1:16 PM PSYCHIATRIC SECRETARY Height 157.5 cm (5' 2 ) 07/14/2023 11:01 AM PSYCHIATRIC SECRETARY Body Mass Index 12.44 07/14/2023 11:01 AM PSYCHIATRIC SECRETARY Plan of Treatment Health Maintenance Due Date [...] SCREENING W CLAU Routine 07/27/2023 11:07 AM PSYCHIATRIC SECRETARY Screening due Screening mammogram for breast cancer from Last 3 Months or Most Recently Relevant to Health Maintenance Results * MAMMO BILAT SCREENING W CLAU (07/27/2023 11:07 AM PSYCHIATRIC SECRETARY) Anatomical Region Laterality Modality Breast Bilateral Mammography 07/27/2023 2:38 PM PSYCHIATRIC SECRETARY Impressions 07/27/2023 3:56 PM PSYCHIATRIC SECRETARY : ??No mammographic evidence of malignancy. Extremely dense breast parenchyma. RECOMMENDATION: 1. Screening mammography in one year, pending no interval breast concerns. 2. Given the extremely dense breast parenchyma, consider annual complete breast ultrasound or breast MRI scan for supplemental screening. OVERALL ASSESSMENT: ??BI-RADS CATEGORY 1: NEGATIVE. Report dictated by Clarke Kendrick MD, MD (cath lab radiology technician). I, Veena Snowden DO have personally reviewed and interpreted this examination/study. > Interpreting Provider: Veena Snowden DO on 07/27/2023 3:56 PM Narrative 07/27/2023 3:56 PM PSYCHIATRIC SECRETARY EXAMINATIONS: ??BILATERAL DIGITAL SCREENING MAMMOGRAM AND BILATERAL BREAST TOMOSYNTHESIS WITH CAD LOCATION: [facility] EXAM DATE: ??07/27/2023 HISTORY: ??Screening. Family [...] Recently Relevant to Health Maintenance Care Teams Chemical Research Worker Relationship Specialty Start Date End Date Ozzy Manriquez PA [address] [place] [address] PCP - General Physician Director Loan 03/22/23
--- OUTSIDE RECORDS SUMMARY | 2024-05-28 05:05 | XMS_ITS | Encounter Summary ---
Author Organization [facility] Address [address] [facility] [place] [address] Care Team Providers Care Backup Administrative Coordinator Name Role Phone Ozzy Manriquez Primary Care Provider [phone] Encounter Details Date Type Department Care Team (Late st Contact Info) Description 08/12/2023 Orders Only [facility] - Neurology [address] [facility], [place] [address] Chen Cano PA-Cristine [address] [facility] [address] [place] [address] Social History Tobacco Use Types [...] on filedocumented in this encounter Care Teams Backup Administrative Coordinator Relationship Specialty Start Date End Date Ozzy Manriquez PA [address] [place] [address] PCP - General Physician Stroboscope Operator 03/22/23 documented as of this encounter
--- OUTSIDE RECORDS SUMMARY | 2024-05-28 05:05 | XMS_ITS | Encounter Summary ---
Author Organization [facility] Health Address [address] [facility] [place] [address] Care Team Providers Care Silk Crepe Machine Operator Name Role Phone Ozzy Manriquez Primary Care Provider [phone] Reason for Visit * Reason Onset Date Comments Med Question 08/10/2023 Encounter Details Date Type Department Care Team (Late st Contact Info) Description 08/10/2023 Telephone [facility] - Neurology [address] [facility], [place] [address] Chen Cano PA-C [facility] [facility] [address] [place] [address] Med Question Social History Tobacco [...] on filedocumented in this encounter Care Teams Silk Crepe Machine Operator Relationship Specialty Start Date End Date Ozzy Manriquez PA [address] [place] [address] PCP - General Physician Riding Silks Custodian 03/22/23 documented as of this encounter
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
--- OUTSIDE RECORDS SUMMARY | 2024-05-28 05:05 | XMS_ITS | Encounter Summary ---
Author Organization [facility] Health Address [address] [place] [address] Care Team Providers Care History Teacher Name Role Phone Ozzy Manriquez Primary Care Provider [phone] Encounter Details Date Type Department Care Team [...] on filedocumented in this encounter Care Teams History Teacher Relationship Specialty Start Date End Date Ozzy Manriquez PA [address] [place] [address] PCP - General Physician Crop Farm Helper 03/22/23 documented as of this encounter
--- OUTSIDE RECORDS SUMMARY | 2024-05-28 05:06 | XMS_ITS | Clinical Summary ---
Author Organization [facility] Address [address] [place] [address] Phone Care Team Providers Care Board Certified Orthodontist Name Role Phone Ozzy Manriquez Primary Care Provider [phone] Social History Tobacco Use Types Packs/Day Years Used Date Smoking Tobacco: Never Assessed Comments Unknown Sex and Gender Information Value Date Recorded Sex Assigned at Not on file Legal Sex Female 1:51 PM PROPERTY MAINTENANCE SUPERVISOR Gender Identity Not on file Sexual Orientation [...] Procedure Name Priority Date/Time Associated Diagnosis Comments DERIRCK SCREENING BILATERAL DIGITAL W CAD Routine 04/19/2018 8:05 AM PROPERTY MAINTENANCE SUPERVISOR Screening breast examination from Last 3 Months or Most Recently Relevant to Health Maintenance Results * DERRICK SCREENING BILATERAL DIGITAL W CAD (04/19/2018 8:05 AM PROPERTY MAINTENANCE SUPERVISOR) Anatomical Region Laterality Modality breast Bilateral Mammography 04/19/2018 7:45 AM PROPERTY MAINTENANCE SUPERVISOR Narrative 04/19/2018 10:25 AM PROPERTY MAINTENANCE SUPERVISOR - DERRICK SCREENING BILATERAL DIGITAL W CAD [...] Justa Bowling M.D. ? cruz/bob:04/19/2018 10:04:21 ?? Laser Print Operator: Christel Arechiga (Bethanie), [facility] letter sent: Normal Exam ?? Reading [...] exam. Electronically signed by: Justa arroyo/bob:04/19/2018 10:04:21 Laser Print Operator: Christel Arechiga (R), [facility] letter sent: Normal Exam Reading location: [place] BI-RADS: 1 Negative Ozzy Manriquez PAC IMG MAMMO ORDERABLES Final Re sult from Last 3 Months or Most Recently Relevant to Health Maintenance Care Teams Board Certified Orthodontist Relationship Specialty Start Date End Date Ozzy Manriquez, PAC [address] [place] [address] PCP - General Physician Labor Relations Director 04/05/18
--- OUTSIDE RECORDS SUMMARY | 2024-05-28 05:06 | XMS_ITS | Encounter Summary ---
Author Organization [facility] Care Team Providers Care Clinical Nurse Name Role Phone Ozzy Manriquez Primary Care Provider [phone] Encounter Details Date Type Department Care Team (Latest Contact Info) Description 05/27/2019 Travel Social History Tobacco Use Types Packs/Day Years Used Date Smoking Tobacco: Never Assessed Comments Unknown Sex and Gender Information Value Date Recorded Sex Assigned at Not on file Legal Sex Female 1:51 PM ENVELOPE SEALER Gender Identity Not on file Sexual Orientation Not on file documented as of this encounter Plan of Treatment Not on file documented as of this encounter Visit Diagnoses Not on filedocumented in this encounter Care Teams Clinical Nurse Relationship Specialty Start Date End Date Ozzy Manriquez PAC [address] [place] [address] PCP - General Physician Clutch Inspector 04/05/18 documented as of this encounter
--- OUTSIDE RECORDS SUMMARY | 2024-05-28 05:06 | XMS_ITS | Encounter Summary ---
Author Organization [facility] Address [address] [place] [address] Phone Care Team Providers Care Laborer Operator Name Role Phone Ozzy Manriquez Primary Care Provider [phone] Reason for Referral * Radiology Services (Routine) - Closed Specialty Diagnoses / Procedures Referred By Contac t Referred To Contact Radiology Diagnoses Dyspnea, unspecified type Procedures XR CHEST 2 VIEWS Ozzy Manriquez PAC [address] [place] [address] Phone: tel: fax: Referral ID Status Reason Start Date Expiration Date Visits Re quested Visits Authorized [id number] Closed 05/27/2019 1 1 C4 PLANNER Encounter Details Date Type Department Care Team (Late st Contact Info) Description 05/27/2019 Transcribe Orders [facility] Admitting [address] [place] [address] Ozzy Manriquez PAC [address] [place] [address] Dyspnea, unspecified type (Primary Dx) Social History Tobacco Use Types Packs/Day Years Used Date Smoking Tobacco: Never Assessed Comments Unknown Sex and Gender Information Value Date Recorded Sex Assigned at Not on file Legal Sex Female 1:51 PM C4 PLANNER Gender Identity Not on file Sexual Orientation Not on file documented as of this encounter Plan of Treatment Not on file documented as of this encounter Results * XR CHEST 2 VIEWS (05/27/2019 9:01 AM C4 PLANNER) Anatomical Region Laterality Modality Chest N/A Digital Radiogra phy 05/27/2019 1:37 PM C4 PLANNER Impressions 05/27/2019 1:39 PM C4 PLANNER IMPRESSION: ??No acute pulmonary findings. Narrative 05/27/2019 1:39 PM C4 PLANNER EXAM DESCRIPTION: ??XR CHEST 2 VIEWS REASON [...] PM T: ??05/27/2019 1:37 PM Report ID: [id number] Reading Location: ??[id number] Procedure Note Dwight Cardenas MD - 05/27/2019 [...] Dwight Cardenas M.D. CS: RE Report ID: [id number] Reading Location: [id number] IMPRESSION: No acute pulmonary findings. Ozzy Manriquez [facility] DIAGNOSTIC ORDERABLES Fin al Result * (ABNORMAL) CMP (COMPREHENSIVE METABOLIC PANEL) (05/27/2019 8:51 AM C4 PLANNER) SODIUM 136 136 - 144 mmol/L 05/27/2019 9:53 AM [facility] POTASSIUM 3.9 3.5 - 5.1 mmol/L 05/27/2019 9:53 AM [facility] CHLORIDE 99(L) 100 - 110 mmol/L 05/27/2019 9:53 AM [facility] CO2, VENOUS 24 22 - 32 mmol/L 05/27/2019 9:53 AM [facility] ANION GAP 16.9 8.0 - 20.0 mmol/L 05/27/2019 9:53 AM [facility] GLUCOSE 144(H) 70 - 99 mg/dL 05/27/2019 9:53 AM [facility] BUN 17 8 - 23 mg/dL 05/27/2019 9:53 AM [facility] CREATININE, BLOOD 0.92 0.60 - 1.10 mg/dL 05/27/2019 9:53 AM [facility] BUN/CREATININE RATIO 18 12 - 20 ratio 05/27/2019 9:53 AM [facility] TOTAL PROTEIN 7.1 6.0 - 8.3 g/dL 05/27/2019 9:53 AM [facility] ALBUMIN 4.3 3.5 - 5.2 g/dL 05/27/2019 9:53 AM [facility] Comment: The colormetric methods used for the determination of Albumin may lead to falsely elevated test results in patients suffering from renal failure or insufficiency due to interference with other proteins. A/G RATIO 1.5 1.0 - 2.0 05/27/2019 9:53 AM [facility] CALCIUM 9.6 8.9 - 10.3 mg/dL 05/27/2019 9:53 AM [facility] T BILI <=0.2 <=1.2 mg/dL 05/27/2019 9:53 AM [facility] SGOT (AST) 20 <=32 U/L 05/27/2019 9:53 AM C4 PLANNER [facility] SGPT (ALT) 11 <=33 U/L 05/27/2019 9:53 AM C4 PLANNER [facility] ALKALINE PHOSPHATASE 74 35 - 105 U/L 05/27/2019 9:53 AM C4 PLANNER [facility] GFR, EST. NONAFRICAN >60 >=60 05/27/2019 9:53 AM C4 PLANNER [facility] GFR, EST. >60 >=60 020 9:53 AM C4 PLANNER [facility] Comment: Creatinine Clearance is the preferred criteria for selecting drug dose adjustments in renally impaired patients. ??The GFR is provided as additional pertinent clinical information. GFR is reported in mL/min/1.73 sq m. Blood specimen (specimen) Butterfly Puncture / Unknown 05/27/2019 8:51 AM C4 PLANNER 05/27/2019 9:17 AM C4 PLANNER us Ozzy Manriquez PAC CHEMISTRY ORDERABLES Final Re sult [facility] [address] [place] [address] documented in this encounter Visit Diagnoses Diagnosis Dyspnea, unspecified type- Primary Dyspnea, unspecified type documented in this encounter Care Teams Laborer Operator Relationship Specialty Start Date End Date Ozzy Manriquez, PAC [address] [place] [address] PCP - General Physician Repairer Art Objects 04/05/18 documented as of this encounter
--- OUTSIDE RECORDS SUMMARY | 2024-05-28 05:06 | XMS_ITS | Encounter Summary ---
Author Organization [facility] Address [address] [place] [address] Care Team Providers Care Tuber Helper Name Role Phone Ozzy Manriquez Primary Care Provider [phone] Encounter Details Date Type Department Care Team (Late st Contact Info) Description 05/28/2020 Lab Requisition [facility] Community Testing [facility] [address] [place] [address] [place] [address] [place] [address] Social History Tobacco Use Types Packs/Day Years Used Date Smoking Tobacco: Never Assessed Comments Unknown Sex and Gender Information Value Date Recorded Sex Assigned at Not on file Legal Sex Female 1:51 PM SCREEN TENDER Gender Identity Not on file Sexual Orientation Not on file documented as of this encounter Plan of Treatment Not on file documented as of this encounter Procedures Procedure Name Priority Date/Time Associated Diagnosis Comments SARS-COV-2 PCR [facility] ONLY Routine 05/28/2020 9:25 AM SCREEN TENDER documented in this encounter Visit Diagnoses Not on filedocumented in this encounter Care Teams Tuber Helper Relationship Specialty Start Date End Date Ozzy Manriquez PAC [address] [place] [address] PCP - General Physician Button Puncher 04/05/18 documented as of this encounter
--- OUTSIDE RECORDS SUMMARY | 2024-05-28 05:06 | XMS_ITS | Encounter Summary ---
Author Organization [facility] Address [address] [place] [address] Care Team Providers Care Insole Presser Name Role Phone Ozzy Manriquez Primary Care Provider [phone] Encounter Details Date Type Department Care Team [...] on filedocumented in this encounter Care Teams Insole Presser Relationship Specialty Start Date End Date Ozzy Manriquez PA [address] [place] [address] PCP - General Physician Willow Machine Tender 03/22/23 documented as of this encounter
--- OUTSIDE RECORDS SUMMARY | 2024-05-28 05:06 | XMS_ITS | Encounter Summary ---
Author Organization [facility] Address [address] [place] [address] Phone Care Team Providers Care Child Care Worker Name Role Phone Ozzy Manriquez Primary Care Provider [phone] Reason for Referral * Radiology Services (Routine) - Closed Specialty Diagnoses / Procedures Referred By Contac t Referred To Contact Radiology Diagnoses Shortness of breath Procedures ADULT CV STRESS PHARMACOLOGIC W NUC MED Ozzy Manriquez PAC [address] [place] [address] Phone: tel: fax: Referral ID Status Reason Start Date Expiration Date Visits Re quested Visits Authorized [id number] Closed 05/26/2019 1 1 AL BOSS Encounter Details Date Type Department Care Team (Late st Contact Info) Description 05/26/2019 Transcribe Orders [facility] Central Scheduling [address] [place] [address] Ozzy Manriquez PAC [address] [place] [address] Shortness of breath (Primary Dx) Social History Tobacco Use Types Packs/Day Years Used Date Smoking Tobacco: Never Assessed Comments Unknown Sex and Gender Information Value Date Recorded Sex Assigned at Not on file Legal Sex Female 1:51 PM CORRAL BOSS Gender Identity Not on file Sexual Orientation Not on file documented as of this encounter Plan of Treatment Scheduled Orders Name Type Priority Associated Diagnoses Orde r Schedule ADULT CV STRESS PHARMACOLOGIC W NUC MED Imaging Routine Shortness of breath Expected: 05/26/2019, Expires: 05/26/2020 documented as of this encounter Visit Diagnoses Diagnosis Shortness of breath- Primary documented in this encounter Care Teams Child Care Worker Relationship Specialty Start Date End Date Ozzy Manriquez, PAC [address] [place] [address] PCP - General Physician University Relations Recruiter 04/05/18 documented as of this encounter
--- OUTSIDE RECORDS SUMMARY | 2024-05-28 05:06 | XMS_ITS | Encounter Summary ---
Author Organization [facility] Address [address] [place] [address] Phone Care Team Providers Care Second Vp Hr Assessment Name Role Phone Ozzy Manriquez PAC Primary Care Provider [phone] Reason for Referral * Radiology Services (Routine) - Closed Specialty Diagnoses / Procedures Referred By Contac t Referred To Contact Radiology Diagnoses Dyspnea, unspecified type Procedures XR CHEST 2 VIEWS Ozzy Manriquez, PAC [address] [place] [address] Phone: tel: fax: Referral ID Status Reason Start Date Expiration Date Visits Re quested Visits Authorized [id number] Closed 05/27/2019 1 1 TECH Reason for Visit * Radiology Services (Routine) - Closed Specialty Diagnoses / Procedures Referred By Contac t Referred To Contact Radiology Diagnoses Dyspnea, unspecified type Procedures XR CHEST 2 VIEWS Ozzy Manriquez, PAC [address] [place] [address] Phone: tel: fax: Referral ID Status Reason Start Date Expiration Date Visits Re quested Visits Authorized [id number] Closed 05/27/2019 1 1 Encounter Details Date Type Department Care Team (Late st Contact Info) Description 05/27/2019 8:45 AM MRI TECH - 05/27/2019 11:59 PM MRI TECH Hospital Encounter [facility] [address] [place] [address] MitraOzzy, PAC [address] [place] [address] Discharge Disposition: Discharged to home or Selfcare Social History Tobacco Use Types Packs/Day Years Used Date Smoking Tobacco: Never Assessed Comments Unknown Sex and Gender Information Value Date Recorded Sex Assigned at Not on file Legal Sex Female 1:51 PM MRI TECH Gender Identity Not on file Sexual Orientation Not on file documented as of this encounter Plan of Treatment Not on file documented as of this encounter Procedures Procedure Name Priority Date/Time Associated Diagnosis Comments XR CHEST 2 VIEWS Routine 05/27/2019 9:01 AM MRI TECH Dyspnea, unspecified type documented in this encounter Results * XR CHEST 2 VIEWS (05/27/2019 9:01 AM MRI TECH) Anatomical Region Laterality Modality Chest N/A Digital Radiogra phy 05/27/2019 1:37 PM MRI TECH Impressions 05/27/2019 1:39 PM MRI TECH IMPRESSION: ??No acute pulmonary findings. Narrative 05/27/2019 1:39 PM MRI TECH EXAM DESCRIPTION: ??XR CHEST 2 VIEWS REASON [...] PM T: ??05/27/2019 1:37 PM Report ID: [id number] Reading Location: ??[id number] Procedure Note Dwight Cardenas MD - 05/27/2019 [...] Dwight Cardenas M.D. CS: RE Report ID: [id number] Reading Location: [place] [address] IMPRESSION: No acute pulmonary findings. Ozzy Manriquez PAC IMG DIAGNOSTIC ORDERABLES Fin al Result documented in this encounter Visit Diagnoses Diagnosis Dyspnea, unspecified type documented in this encounter Care Teams Second Vp Hr Assessment Relationship Specialty Start Date End Date Ozzy Manriquez, PAC [address] [place] [address] PCP - General Physician Motor Vehicle Operator Road Supervisor 04/05/18 documented as of this encounter
--- OUTSIDE RECORDS SUMMARY | 2024-05-28 05:06 | XMS_ITS | Encounter Summary ---
Author Organization [facility] Address [address] [place] [address] Care Team Providers Care Insurance Sales Producer Name Role Phone Ozzy Manriquez Primary Care Provider [phone] Encounter Details Date Type Department Care Team (Late st Contact Info) Description 05/28/2020 9:30 AM RESPIRATORY THERAPY MANAGER Rapid Evaluation [facility] Community Testing [facility] [address] [place] [address] Social History Tobacco Use Types Packs/Day Years Used Date Smoking Tobacco: Never Assessed Comments Unknown Sex and Gender Information Value Date Recorded Sex Assigned at Not on file Legal Sex Female 1:51 PM RESPIRATORY THERAPY MANAGER Gender Identity Not on file Sexual Orientation Not on file documented as of this encounter Plan of Treatment Not on file documented as of this encounter Visit Diagnoses Not on filedocumented in this encounter Care Teams Insurance Sales Producer Relationship Specialty Start Date End Date Ozzy Manriquez PAC [address] [place] [address] PCP - General Physician Tab Card Press Operator 04/05/18 documented as of this encounter
== END 2024-05-22 15:38 | disposition home or self-care (01) | DRG 193 ==
LOC: ANHED 08:01 → ANH3MEDSUR 09:10
PROVIDERS: Emergency Medicine; Admitting Provider Internal Medicine; Emergency Provider Emergency Medicine; PCP Physician Assistant; Visit Provider Internal Medicine
DX: J18.9 Pneumonia, unspecified organism (principal); E43 Unspecified severe protein-calorie malnutrition; Z68.1 Body mass index [BMI] 19.9 or less, adult; I50.9 Heart failure, unspecified; F17.210 Nicotine dependence, cigarettes, uncomplicated; J43.9 Emphysema, unspecified; K21.9 Gastro-esophageal reflux disease without esophagitis; Z20.822 Contact with and (suspected) exposure to COVID-19; Z28.21 Immunization not carried out because of patient refusal; Z79.82 Long term (current) use of aspirin; Z86.73 Personal history of transient ischemic attack (TIA), and cerebral infarction without residual deficits
CPT/HCPCS: 36415; 71045; 71275; 80053; 82728; 83540; 83550; 83690; 84484; 85025; 85610; 85730; 87040; 87637; 87641; 93005; 94640; 96365; 96367; 96375; 99285; A9270; J0456; J0696; J1756; J2270; J7050; Q9967

== ENCOUNTER 2025-04-07 08:38 | Inpatient (IN) | payer MEDICARE, SELFPAY ==
[2025-04-07] VITALS (17 sets, daily range): BP systolic 149–168; BP diastolic 75–98; PULSE 62–104; RESP 14–21; TEMP 36.4–36.8; O2SAT 94–100; BMI 11.6
--- NOTE | ~2025-04-07 | XR_ITS ---
Examination: XR chest 1V portable Clinical History: shortness of breath Comparison: X-ray and CTA chest 05/21/2024 Technique: Portable AP Findings: Heart size normal. Hyperinflation and interstitial changes. Lungs otherwise clear. No acute bony abnormality. IMPRESSION: 1. No acute cardiopulmonary findings given portable technique. Reviewed, dictated and finalized at location R. EDICAL EQUIPMENT TECHNICIAN
--- NOTE | ~2025-04-07 | XR_ITS ---
EXAMINATION: XR chest 2V DATE: 04/09/2025 09:58 INDICATION: Follow-up TECHNIQUE: Frontal and lateral views of the chest were obtained. COMPARISON: April 07 FINDINGS: Severe emphysematous appearing changes throughout the lungs with hyperinflation throughout. No pneumothorax or subphrenic free air seen. No consolidation effusion or radha pulmonary edema. Heart size normal. Bones appear intact. IMPRESSION: 1. Severe emphysematous changes throughout the lungs with no focal acute process. Reviewed, dictated and finalized at location A. ULAR EQUIPMENT INSTALLER IMPRESSION: 1. Severe emphysematous changes throughout the lungs with no focal acute proces s.
--- NOTE | 2025-04-07 08:41 | ECG_ITS ---
Test Date: 2025-04-07 08:50:07 Measurements Intervals [place] Rate: 69 P: 148 [place]: 119 QRS: 148 QRSD: 90 T: 152 QT: 379 QTc: 406 Interpretive Statements SINUS RHYTHM WITH SHORT [place] INTERVAL NONSPECIFIC T-WAVE ABNORMALITY Electronically Signed On 04-07-2025 10:55:50 MANAGED SECURITY SALES CONSULTANT by Cristo Luong D.O
--- NOTE | 2025-04-07 08:56 | ED.SOB ---
HPI - SOB/Dyspnea General Chief Complaint: Shortness of Breath/Dyspnea Stated Complaint: SOB, cough, congestion, abd pain. Time Seen by Provider: 04/07/25 08:49 History of Present Illness HPI Narrative: This is a 64-year-old female with history of COPD who presents to the ED for shortness of breath. Patient states for the past week and half, she has been having shortness of breath for the past week and half. She states that they posted a [employer] green party and believe that the whole family got sick from that. She has continued to have shortness of breath with a productive cough. Denies chest pain. She does not have any breathing treatments or inhalers at home. Related Data Home Medications ?Medication ?Instructions ?Recorded ?Confirmed ?Last Taken ?Type aspirin 81 mg tablet,delayed 81 mg PO DAILY 05/21/24 04/07/25 04/06/25 History release atenolol 25 mg tablet 25 mg PO DAILY 05/21/24 04/07/25 04/06/25 History atorvastatin 40 mg tablet 40 mg PO DAILY 05/21/24 04/07/25 04/06/25 History famotidine 10 mg tablet 10 mg PO Q12H 05/21/24 04/07/25 04/06/25 History Allergies Allergy/AdvReac Type Severity Reaction Status Date / Time No Known Allergies Allergy Verified 04/07/25 13:29 Review of Systems Review of Systems: Gen.: Denies fevers or chills Eyes: Denies eye pain or visual change ENT: Denies congestion Respiratory: As per HPI CV: Denies chest pain or palpitations GI: Denies abdominal pain nausea, emesis or diarrhea denies burning, urgency, frequency or hematuria Musculoskeletal: Denies back pain or muscle pain Neuro: Denies numbness, tingling, weakness or focal weakness Skin: Denies rash Except as documented, all other systems reviewed and negative [facility] Past Medical History Medical History (Updated 04/07/25 @ 13:34 by Kaylen Lee APRN) Hypertension COPD (chronic obstructive pulmonary disease) Family History Family History Other Unknown family medical history Social History Social History Smoking packs per day: 1 Smoking cigarettes per day: 20.0 Years smoked: 50 Smoking pack-years: 50.00 Smoking status: Current every day smoker Tobacco type: cigarettes Second hand tobacco smoke exposure: Yes Alcohol intake: never Substance use: current Substance use type: marijuana Other substance usage details: [place] Vape Marijuana Last use: 04/06/25 Do You Feel Safe in your Home?: Yes Lack of Transportation: No Lack of Food: Never True Current Housing: I Do Not Have Housing Concerned About Future Housing: No Difficulty Paying Gas/Electric Bills: No Difficulty Paying for Meds: No Currently Unemployed: No Education: High School Diploma/GED Difficulty w/ Childcare or Family Care: No Spiritual care concerns: No Exam Narrative: APPEARANCE: Mild distress, nontoxic, resting in bed EYES: EOMI HEENT: Normocephalic, atraumatic, OMM RESPIRATORY: Diminished breath sounds throughout with faint end-expiratory wheeze CARDIOVASCULAR: Regular rate and rhythm without murmurs rubs or gallops. ABDOMINAL: Soft, nontender, nondistended, no rebound or guarding MUSCULOSKELETAl: Moves all extremities. No clubbing, cyanosis or edema. NEURO: Awake and alert. Following commands, speech normal, no focal deficits SKIN:: Warm, dry. No rashes lesions or abrasions PSYCHIATRIC: Normal affect/mood, Course Vital Signs Vital signs: Vital Signs Temperature 97.6 F 04/07/25 08:45 Pulse Rate 87 04/07/25 08:45 Respiratory Rate 21 H 04/07/25 08:45 Blood Pressure 164/98 H 04/07/25 08:45 Pulse Oximetry 95 04/07/25 08:45 Oxygen Delivery Room Air 04/07/25 08:45 Temperature 98.2 F 04/07/25 14:00 Pulse Rate 90 04/07/25 14:00 Respiratory Rate 14 04/07/25 14:00 Blood Pressure 166/89 H 04/07/25 14:00 Pulse Oximetry 100 04/07/25 14:00 Oxygen Delivery Nasal Cannula 04/07/25 13:27 Oxygen Flow Rate 3 04/07/25 13:27 MDM - SOB/Dyspnea MDM Narrative Medical decision making narrative: 64-year-old female Presenting for shortness of breath. On initial evaluation patient was in mild distress afebrile, hemodynamic stable. Differentials include but are not limited to: ACS, CHF Exacerbation, COPD exacerbation, PE, PNA, PTX, bronchitis, viral syndrome Notable exam findings: Diminished breath sounds throughout with diffuse expiratory wheezes I personally reviewed the patient's lab result. Notable lab findings: CBC and CMP were without significant abnormalities. COVID/flu/RSV negative. I personally reviewed the patient's images and interpret as follows: Chest x-ray: Normal cardiac silhouette, no consolidations, no pleural effusions, no pulmonary vascular congestion I personally reviewed the patient's EKGs: Normal sinus rhythm, normal axis, normal intervals, nonspecific T-wave change, no ST change Patient was given a DuoNeb he did have some improvement of her symptoms and lung examination but would benefit from a 2nd DuoNeb so she was given that. She was also given 125 mg Solu-Medrol. On re-evaluation, patient was feeling better but she still was not moving much air on her lungs and was still only satting 90% on room air so she was placed on supplemental oxygen. Patient would benefit from admission for her acute hypoxemic respiratory failure. Patient was given Rocephin and doxycycline. Case was discussed with hospitalist who will admit the patient. Medical Records Attestation: I reviewed the patient's medical records. Lab Data Attestation: I reviewed the patient's lab results. 04/07/25 09:12 04/07/25 09:12 Labs: Lab Results 04/07/25 04/07/25 Range/Units 09:12 09:27 WBC 8.5 (4.5-10.0) K/mm3 RBC 4.66 (4.2-5.4) M/mm3 Hgb 15.1 H D (12.0-15.0) g/dL Hct 46.0 (37.0-47.0) % MCV 98.7 (80-100) fl MCH 32.4 (26-34) pg MCHC 32.8 (32-36) g/dl RDW 12.7 (11.5-14.5) % Plt Count 225 (150-375) k/mm3 MPV 10.2 (7.4-10.4) fl Immature Gran % (Auto) 0.4 (0-0.5) % Neut % (Auto) 72.8 (45.5-73.1) % Lymph % (Auto) 20.4 (18.3-44.2) % [place] % (Auto) 5.4 (2.6-8.5) % Eos % (Auto) 0.8 (0-4.4) % Baso % (Auto) 0.2 (0.2-1.2) % Lymph # (Auto) 1.73 (0.9-3.2) K/mm3 [place] # (Auto) 0.5 (0.1-0.6) K/mm3 Eos # (Auto) 0.1 (0-0.3) K/mm3 Baso # (Auto) 0.0 (0.0-0.1) K/mm3 Abs Immat Gran (auto) 0.03 (0.00-0.031) K/mm3 Absolute Neuts (auto) 6.2 (1.3-6.7) K/mm3 Absolute Nucleated RBC 0.000 (0.0-0.012) K/mm3 Nucleated RBC % 0.0 (0.0-0.2) % Sodium 138 (137-145) mmol/L Potassium 4.5 (3.4-5.0) mmol/L Chloride 100 (98-107) mmol/L Carbon Dioxide 28 (22-30) mmol/L Anion Gap 10 (4-12) mmol/L BUN 18 H (7-17) mg/dL Creatinine 0.77 (0.7-1.0) mg/dL Estim Creat Clear Calc 28 ml/min Estimated GFR > 60 (59 - ) Glucose 98 (65-110) mg/dL Lactic Acid 1.4 (0.7-2.0) mmol/L Calcium 10.1 (8.4-10.2) mg/dL Total Bilirubin 0.6 (0.2-1.3) mg/dL AST 42 H (14-36) U/L ALT 29 (6-35) U/L Alkaline Phosphatase 110 (38-126) U/L Total Protein 8.1 (6.3-8.2) g/dL Albumin 4.5 (3.5-5.1) g/dL Influenza A (RT-PCR) Negative (Negative) Influenza B (RT-PCR) Negative (Negative) RSV (RT-PCR) Negative (Negative) SARS-CoV-2 RNA (RT-PCR) Negative (Negative) Imaging Data Attestation: I personally reviewed and interpreted this imaging study as follows: Radiologist's impression: Impressions Chest X-Ray 04/07/25 10:26 IMPRESSION: 1. No acute cardiopulmonary findings given portable technique. Discharge Plan Discharge Clinical Impression: Acute exacerbation of chronic bronchitis Patient Disposition: Still a Patient Condition: Stable
[2025-04-07] MEDS: IPRATROPIUM 0.5 MG/ALBUTEROL SULFATE 2.5 MG (BASE) AMPUL.NEB 3 ML INHALATION ×6 (09:10→20:13)
[2025-04-07 09:37] LABS: Hematocrit 46.0 % (37.0-47.0); Hemoglobin 15.1 g/dL (12.0-15.0); Immature Granulocyte Percent A 0.4 % (0-0.5); Lymphocytes Absolute Auto 1.73 K/mm3 (0.9-3.2); Mean Corpuscular HGB Conc 32.8 g/dl (32-36); Mean Corpuscular Hemoglobin 32.4 pg (26-34); Mean Corpuscular Volume 98.7 fl (80-100); Nucleated Red Blood Cells Absolute Auto 0.000 K/mm3 (0.0-0.012); Nucleated Red Blood Cells Perc 0.0 % (0.0-0.2); Platelet Count Result 225 k/mm3 (150-375); Red Blood Count 4.66 M/mm3 (4.2-5.4); White Blood Count 8.5 K/mm3 (4.5-10.0)
[2025-04-07 09:50] LABS: Alanine Aminotransferase 29 U/L (6-35); Albumin Level 4.5 g/dL (3.5-5.1); Alkaline Phosphatase 110 U/L (38-126); Anion Gap 10 mmol/L (4-12); Aspartate Amino Transferase 42 U/L (14-36); Bilirubin,Total 0.6 mg/dL (0.2-1.3); Blood Urea Nitrogen 18 mg/dL (7-17); Calcium 10.1 mg/dL (8.4-10.2); Carbon Dioxide 28 mmol/L (22-30); Chloride 100 mmol/L (98-107); Estimated CRCL calculation 28 ml/min; Estimated Glomerular Filt Rate > 60; Glucose 98 mg/dL (65-110); Potassium 4.5 mmol/L (3.4-5.0); Sodium 138 mmol/L (137-145); Total Protein 8.1 g/dL (6.3-8.2)
[2025-04-07 10:14] LABS: Influenza A QL RT-PCR Negative (Negative); Influenza B QL RT-PCR Negative (Negative); RSV RNA, RT-PCR Negative (Negative); SARS-CoV-2 RNA PCR Negative (Negative)
--- NOTE | 2025-04-07 11:47 | PC.NURSE ---
Per EDP blood cultures are not needed prior to abx administration
[2025-04-07] MEDS: cefTRIAXone 1 GM in SODIUM CHLORIDE 0.9% IV 50 ML 100 ML IVPB (11:51)
--- NOTE | 2025-04-07 12:03 | PC.NURSE ---
Meal tray ordered for pt
[2025-04-07] MEDS: DOXYCYCLINE IV 100 MG in SODIUM CHLORIDE 0.9% IV 100 ML IVPB (12:37)
--- NOTE | 2025-04-07 12:40 | WPCEDHO ---
ED Hand Off Checklist All vitals saved: YES IV Site documented: YES All med administrations documented: YES Triage Note Triage Note Pt to ED co SOB, cough, and 04/07/25 08:45 intermittent LLQ pain. Pt states symptoms started within the last couple weeks. Pt states cough is productive with clear, light brown mucous. Pt states hx COPD. Pt states she does not have breathing tx or nebulizing tx. Allergies No Known Allergies Allergy (Verified 04/07/25 08:45) Family History (Last Reviewed 04/07/25 @ 08:59 by Clayton Matias DO) Other Unknown family medical history Administered/Completed Medications Discontinued Medications Albuterol/Ipratropium (Ipratropium 0.5 Mg/Albuterol Sulfate 2.5 Mg (Base) Ampul.Neb 3 Ml) 3 ml INHALATION Q20M JOHN Stop: 04/07/25 09:36 Last Admin: 04/07/25 09:21 Dose: 3 ml Documented By: Admin: 04/07/25 09:19 Dose: 3 ml Documented By: Admin: 04/07/25 09:10 Dose: 3 ml Documented By: ZAFAR Albuterol/Ipratropium (Ipratropium 0.5 Mg/Albuterol Sulfate 2.5 Mg (Base) Ampul.Neb 3 Ml) 3 ml INHALATION ONCE STA Stop: 04/07/25 10:48 Last Admin: 04/07/25 10:53 Dose: 3 ml Documented By: ZAFAR Ceftriaxone Sodium 1 gm/ (Sodium Chloride) 50 mls @ 100 mls/hr IVPB ONCE STA Stop: 04/07/25 12:00 Last Infusion: 04/07/25 12:36 Dose: Infused Documented By: Admin: 04/07/25 11:51 Dose: 100 mls/hr Documented By: SANTOS Doxycycline Hyclate 100 mg/ (Sodium Chloride) 100 mls @ 100 mls/hr IVPB ONCE ONE Stop: 04/07/25 12:30 Last Admin: 04/07/25 12:37 Dose: 100 mls/hr Documented By: SANTOS Methylprednisolone Sodium Succinate (Methylprednisolone Sod Succ 125 Mg Vial) 125 mg IV PUSH ONCE STA Stop: 04/07/25 08:55 Last Admin: 04/07/25 09:34 Dose: 125 mg Documented By: SANTOS Notes 04/07/25 12:03 Nurse Note by Jerica Zayas Meal tray ordered for pt Initialized on 04/07/25 12:03 - END OF NOTE 04/07/25 11:47 Nurse Note by Jerica Zayas Per EDP blood cultures are not needed prior to abx administration Initialized on 04/07/25 11:47 - END OF NOTE Interventions/Assessments Cardiac Monitoring Start: 04/07/25 08:41 Freq: Status: Active Protocol: Document 04/07/25 09:17 KED (Rec: 04/07/25 09:17 KED [id number]) Dramatic Teacher Assessment Dramatic Teacher Yes Applied Pulse Rate (60-100) 62 EKG Rythm Sinus Rhythm IV / Saline Lock, Insert Start: 04/07/25 08:41 Freq: STAT Status: Active Protocol: Document 04/07/25 08:55 KED (Rec: 04/07/25 09:17 KED [id number]) IV Assessment Peripheral Access Right Forearm IV Catheter Access Initiated IV Insertion Date 04/07/25 IV Insertion Time 09:15 Catheter Gauge 18 IV Insertion 1 Attempts Ultrasound Used for No Placement IV Site Assessment WNL IV Care and WNL Maintenance PA: Cardiovascular Assessment Start: 04/07/25 08:41 Freq: Status: Active Protocol: Document 04/07/25 08:55 KED (Rec: 04/07/25 09:17 KED [id number]) Cardiovascular Assessment Cardiovascular Dyspnea Symptoms PA: Respiratory Assessment Start: 04/07/25 08:41 Freq: Status: Active Protocol: Document 04/07/25 10:29 KED (Rec: 04/07/25 10:31 KED [id number]) Respiratory Assessment Symptoms Congestion,Cough,Shortness of Breath at Rest,Shortness of Breath With Exertion Effort Short of Breath Pattern Tachypnea Bilateral Throughout Phase Expiratory Lung Sounds Coarse,Improved Aeration Cough Description Ineffective,Productive Cough Frequency Intermittent Sputum Production/ Spontaneous Expectoration Suction Method Sputum Amount Small Sputum Color Clear,Brown Oxygen Delivery Oxygen Delivery Room Air Pulse Oximetry (90- 94 100) Last Vital Signs Temperature 97.6 F 04/07/25 12:38 Pulse Rate 96 04/07/25 12:38 Respiratory Rate 19 04/07/25 12:38 Pulse Oximetry 96 04/07/25 12:38 Blood Pressure 154/87 H 04/07/25 12:38 Blood Pressure Mean 109 04/07/25 12:38 Oxygen Delivery Nasal Cannula 04/07/25 11:39 Oxygen Flow Rate 3 04/07/25 11:39 Weight 28.9 kg 04/07/25 08:45 Last Result - Abnormals Only Hgb 15.1 g/dL (12.0-15.0) H D 04/07/25 09:12 BUN 18 mg/dL (7-17) H 04/07/25 09:12 AST 42 U/L (14-36) H 04/07/25 09:12 Most Recent Suicide Severity Rating Suicide Severity Rating NO RISK INDICATED 04/07/25 08:45
--- NOTE | 2025-04-07 13:06 | ADMGEN ---
This patient, Kamini Christina, was admitted to [facility] Room 302-01. Patient/family oriented to hospital policies and general routines including ID bracelet, bed and alarms, visiting hours, pain management, procedures, bathroom and other care routines, personal items, smoking policy, room service/diet, and visiting hours. Information on how to activate the Rapid Response Team has been discussed. Patient/Family are encouraged to report perceived risks to care and to ask questions if they do not understand what they are told or what they should do.
--- NOTE | 2025-04-07 13:14 | P.HP_ITS ---
H&P: HPI History of Present Illness Date/Time: 04/07/25 13:14 Chief Complaint: Shortness of breath Narrative: 64-year-old female past medical history of COPD, hypertension, GERD, and hyperlipidemia presents the emergency room with shortness of breath. Patient states that her shortness of breath has increased over last week and half. Per the daughter the patient is noncompliant with her medications. Patient states that she felt so bad insert short of breath that she will be compliant while she is in the hospital. She will not ask got side to smoke, she states that when she gets home she is going to try to quit smoking also. Patient seen upon the floor she is off her nasal cannula states that her breathing is much improved and can speak in full sentences. Patient denies nausea vomiting fever chills. Lab work shows a hemoglobin of 15.1,, influenza A/B, RSV, COVID negative, chest x-ray shows hyperinflation of lungs, no acute process identified, patient has been placed on 3 L nasal cannula for hypoxia. Patient will be admitted for COPD exacerbation. Review of Systems Review of Systems: 12 systems were reviewed and are negativ e except for as per HPI. [facility] Past Medical History Medical History (Updated 04/07/25 @ 23:04 by Kaylen Lee, SAVANAH) GERD (gastroesophageal reflux disease) Hyperlipidemia Hypertension COPD (chronic obstructive pulmonary disease) Family History Family History Other Unknown family medical history Social History Social History Smoking packs per day: 1 Smoking cigarettes per day: 20.0 Years smoked: 50 Smoking pack-years: 50.00 Smoking status: Current every day smoker Tobacco type: cigarettes Second hand tobacco smoke exposure: Yes Alcohol intake: never Substance use: current Substance use type: marijuana Other substance usage details: [place] Vape Marijuana Last use: 04/06/25 Do You Feel Safe in your Home?: Yes Lack of Transportation: No Lack of Food: Never True Current Housing: I Do Not Have Housing Concerned About Future Housing: No Difficulty Paying Gas/Electric Bills: No Difficulty Paying for Meds: No Currently Unemployed: No Education: High School Diploma/GED Difficulty w/ Childcare or Family Care: No Spiritual care concerns: No Meds Home Medications and Allergies Home Medications ?Medication ?Instructions ?Recorded ?Confirmed ?Type aspirin 81 mg tablet,delayed 81 mg PO DAILY 05/21/24 1 06/07/24 History release atenolol 25 mg tablet 25 mg PO DAILY 05/21/2403/24 History atorvastatin 40 mg tablet 40 mg PO DAILY 05/21/2403/24 History famotidine 10 mg tablet 10 mg PO Q12H 05/21/2404/07 History albuterol sulfate 2.5 mg/0.5 mL 5 mg inhalation Q6H MS N shortness 04/07/25 Rx solution for nebulization of breath or wheezing #30 ea albuterol sulfate 90 mcg/actuation 2 puff inhalation Q ID PRN 04/07/25 Rx aerosol inhaler (Ventolin HFA) shortness of breath or wheezing #8.5 grams amoxicillin 875 mg-potassium 1 tablet PO Q12H #10 tabs 04/07/25 Rx clavulanate 125 mg tablet doxycycline hyclate 100 mg capsule 100 mg PO BID #10 c aps 04/07/25 Rx nebulizers (AeroEclipse II #1 ea 04/07/25 Rx Nebulizer) Allergies Allergy/AdvReac Type Severity Reaction Status Date / Time No Known Allergies Allergy Verified 04/07/25 13:29 Vital Signs Vital Signs - 24 hr 04/07/25 08:45 04/07/25 08:55 04/07/25 09:10 Temperature 97.6 F Pulse Rate 87 77 Respiratory Rate 21 H 20 Blood Pressure 164/98 H Pulse Oximetry 95 95 Oxygen Delivery Room Air Room Air Oxygen Flow Rate 04/07/25 09:17 04/07/25 09:17 04/07/25 10:00 Temperature Pulse Rate 62 68 96 Respiratory Rate 18 20 Blood Pressure 168/91 H Pulse Oximetry 96 Oxygen Delivery Oxygen Flow Rate 04/07/25 10:29 04/07/25 10:29 04/07/25 10:53 Temperature Pulse Rate 88 102 H Respiratory Rate 21 H 20 Blood Pressure 151/90 H Pulse Oximetry 94 94 Oxygen Delivery Room Air Oxygen Flow Rate 04/07/25 10:59 04/07/25 11:39 04/07/25 11:39 Temperature Pulse Rate 104 H 91 Respiratory Rate 20 17 Blood Pressure 154/87 H Pulse Oximetry 95 95 Oxygen Delivery Nasal Cannula Oxygen Flow Rate 3 04/07/25 12:38 Temperature 97.6 F Pulse Rate 96 Respiratory Rate 19 Blood Pressure 154/87 H Pulse Oximetry 96 Oxygen Delivery Oxygen Flow Rate Exam Narrative: General: well appearing, appears older than stated age. Frail looking HEENT: normocephalic, atraumatic. Mucous membranes moist. EOMI, PERRLA, bilateral sclera anicteric, no conjunctival injection. Neck supple without JVD, lymphadenopathy, or bruit. Respiratory: Diminished bilaterally. No rales/rhonic/wheezes. Cardiovascular: Regular rate and rhythm, normal S1-S2. No murmurs, rubs, or clicks. PMI is nondisplaced, capillary refill less than 3 second. Abdomen: Soft, round, no pulsatile masses, nondistended and nontender. No rebound, no guarding. Bowel sounds present to all four quadrants. No high pitch or tinkling sounds, resonant to percussion. Extremities: No cyanosis, clubbing, or edema present. Pulses are palpable 2/2. Active ROM to all four extremities. Neuro: Alert and orientated x 4. PERRLA. Cranial nerves 2-12 intact without focal deficit. Skin: Warm, dry, and intact, without rash, erythema, or lesion. Psych: pleasant, cooperative, normal speech, normal affect, no hallucinations, no dysarthia H&P: Results Labs Labs: Short CBC 04/07/25 Range/Units 09:12 WBC 8.5 (4.5-10.0) K/mm3 Hgb 15.1 H D (12.0-15.0) g/dL Hct 46.0 (37.0-47.0) % Plt Count 225 (150-375) k/mm3 [facility] 04/07/25 09:12 Sodium 138 Potassium 4.5 Chloride 100 Carbon Dioxide 28 BUN 18 H Creatinine 0.77 Glucose 98 Calcium 10.1 Liver Function 04/07/25 Range/Units 09:12 Total Bilirubin 0.6 (0.2-1.3) mg/dL AST 42 H (14-36) U/L ALT 29 (6-35) U/L Alkaline Phosphatase 110 (38-126) U/L Albumin 4.5 (3.5-5.1) g/dL Assessment and Plan Assessment and plan (1) COPD exacerbation: Code(s): J44.1 - Chronic obstructive pulmonary disease with (acute) exacerbation Status: Acute Assessment and Plan: With possible pneumonia IV Rocephin and azithromycin DuoNebs Solu-Medrol x1 hold by prednisone daily Guaifenesin (2) Acute respiratory failure with hypoxia: Code(s): J96.01 - Acute respiratory failure with hypoxia Status: Acute Assessment and Plan: Wean oxygen as able Keep SpO2 between 88 and 92% (3) Hypertension: Code(s): I10 - Essential (primary) hypertension Status: Acute Assessment and Plan: Continue atenolol (4) GERD (gastroesophageal reflux disease): Code(s): K21.9 - Gastro-esophageal reflux disease without esophagitis Status: Acute (5) Tobacco abuse: Code(s): Z72.0 - Tobacco use Status: Acute Assessment and Plan: Nicotine patch Patient counseled on smoking cessation (6) Hyperlipidemia: Code(s): E78.5 - Hyperlipidemia, unspecified Status: Acute Assessment and Plan: Continue statin Quality VTE Prophylaxis VTE prophylaxis: mechanical ordered and pharmacologic ordered Hospitalist MIPS Advance Care Plan I have confirmed that the patient's Advanced Care Plan is present, code status is documented, or surrogate decision maker is listed in patient medical record.: Yes Medication Reconciliation I have utilized all available resources to obtain, update and review the patients current medications (includes all prescriptions, OTC, herbals, cannabis, and nutritional supplements).: Yes
[2025-04-07] MEDS: NICOTINE (*PBKC) 21 MG PATCH 1 PATCH TRANSDERM (14:45)
[2025-04-07] MEDS: guaiFENesin 12 HR 600 MG TABCR 1200 MG PO (21:00)
[2025-04-08] VITALS (24 sets, daily range): BP systolic 139–166; BP diastolic 73–99; PULSE 73–93; RESP 16–20; TEMP 36.2–36.6; O2SAT 78–100
[2025-04-08] MEDS: ACETAMINOPHEN 325 MG TABLET 650 MG PO (01:37)
[2025-04-08] MEDS: IPRATROPIUM 0.5 MG/ALBUTEROL SULFATE 2.5 MG (BASE) AMPUL.NEB 3 ML INHALATION ×4 (02:16→19:15)
--- NOTE | 2025-04-08 07:21 | P.PNIM_ITS ---
Progress Note: A&P Assessment and Plan (1) COPD exacerbation: Code(s): J44.1 - Chronic obstructive pulmonary disease with (acute) exacerbation Status: Acute Assessment and Plan: With possible pneumonia IV Rocephin and azithromycin DuoNebs Solu-Medrol x1 PO prednisone 40 mg daily Guaifenesin AM labs repeat CXR in am (2) Acute respiratory failure with hypoxia: Code(s): J96.01 - Acute respiratory failure with hypoxia Status: Acute Assessment and Plan: Wean oxygen as able Keep SpO2 between 88 and 92% patient had oxygen off when I entered the room, discussed with nurse to wean oxygen as able to room air (3) Hypertension: Code(s): I10 - Essential (primary) hypertension Status: Acute Assessment and Plan: Continue atenolol (4) GERD (gastroesophageal reflux disease): Code(s): K21.9 - Gastro-esophageal reflux disease without esophagitis Status: Acute Assessment and Plan: continue famotidine (5) Tobacco abuse: Code(s): Z72.0 - Tobacco use Status: Acute Assessment and Plan: Nicotine patch Patient counseled on smoking cessation (6) Hyperlipidemia: Code(s): E78.5 - Hyperlipidemia, unspecified Status: Acute Assessment and Plan: Continue statin Subjective Date/time seen: 04/08/25 07:21 Interval history: Patient seen for a follow up visit. Patient lying in bed, in no acute distress. Patient denies acute pain. Patient continues on 3L oxygen by [place], no oxygen at baseline. Patient reports her breathing is improved. Patient continues on IV ceftriaxone and azithromycin for possible pneumonia. Patient with complaints of her nose being dry, offered saline nasal spray, however declined. Nursing will add humidity to the oxygen. Plan for repeat CXR in the AM. Wean oxygen as tolerated back to room air, discussed with nurse. Review of Systems Review of Systems: 12 systems were reviewed and are negativ e except for as per HPI. Exam Narrative: General: well appearing, appears older than stated age. Frail looking HEENT: normocephalic, atraumatic. Mucous membranes moist. EOMI, no conjunctival injection. Neck supple Respiratory: Diminished bilaterally. No rales/rhonic/wheezes. Cardiovascular: Regular rate and rhythm, normal S1-S2. No murmurs, rubs, or clicks. Abdomen: Soft, round, no pulsatile masses, nondistended and nontender. No rebound, no guarding. Bowel sounds present to all four quadrants. Extremities: No cyanosis, clubbing, or edema present. Active ROM to all four extremities. Neuro: Alert and orientated x 4. PERRLA Skin: Warm, dry, and intact, without rash, erythema, or lesion. Psych: pleasant, cooperative, normal speech, normal affect, no hallucinations, no dysarthia Objective Data Vital Signs Vital Signs: Vital Signs - 24 hr 04/07/25 08:45 04/07/25 08:55 04/07/25 09:10 Temperature 97.6 F Pulse Rate 87 77 Respiratory Rate 21 H 20 Blood Pressure 164/98 H Pulse Oximetry 95 95 Oxygen Delivery Room Air Room Air Oxygen Flow Rate Fraction of Inspired Oxygen 04/07/25 09:17 04/07/25 09:17 04/07/25 10:00 Temperature Pulse Rate 62 68 96 Respiratory Rate 18 20 Blood Pressure 168/91 H Pulse Oximetry 96 Oxygen Delivery Oxygen Flow Rate Fraction of Inspired Oxygen 04/07/25 10:29 04/07/25 10:29 04/07/25 10:53 Temperature Pulse Rate 88 102 H Respiratory Rate 21 H 20 Blood Pressure 151/90 H Pulse Oximetry 94 94 Oxygen Delivery Room Air Oxygen Flow Rate Fraction of Inspired Oxygen 04/07/25 10:59 04/07/25 11:39 04/07/25 11:39 Temperature Pulse Rate 104 H 91 Respiratory Rate 20 17 Blood Pressure 154/87 H Pulse Oximetry 95 95 Oxygen Delivery Nasal Cannula Oxygen Flow Rate 3 Fraction of Inspired Oxygen 04/07/25 12:38 04/07/25 13:27 04/07/25 14:00 Temperature 97.6 F 98.2 F Pulse Rate 96 90 Respiratory Rate 19 14 Blood Pressure 154/87 H 166/89 H Pulse Oximetry 96 96 100 Oxygen Delivery Nasal Cannula Oxygen Flow Rate 3 Fraction of Inspired Oxygen 04/07/25 14:00 04/07/25 20:00 04/07/25 20:13 Temperature Pulse Rate 104 H 81 74 Respiratory Rate 20 18 20 Blood Pressure Pulse Oximetry 97 Oxygen Delivery Nasal Cannula Oxygen Flow Rate 3 Fraction of Inspired Oxygen 04/07/25 20:16 04/07/25 20:22 04/07/25 22:00 Temperature 98.2 F Pulse Rate 74 80 81 Respiratory Rate 20 20 18 Blood Pressure 149/75 H Pulse Oximetry 94 97 Oxygen Delivery Nasal Cannula Oxygen Flow Rate 2 Fraction of Inspired Oxygen 04/08/25 02:16 04/08/25 02:37 04/08/25 06:15 Temperature 97.6 F Pulse Rate 84 85 73 Respiratory Rate 20 20 18 Blood Pressure 153/73 H Pulse Oximetry 100 Oxygen Delivery Oxygen Flow Rate Fraction of Inspired Oxygen Intake/Output Intake/Output: Intake & Output 04/05/25 04/06/25 04/07/25 04/08/25 23:59 23:59 23:59 23:59 Intake Total 50 500 Balance 50 500 Meds/Results Medications: Active Medications Generic Name Dose Route Start Last Admin Trade Name Barbara PRN Reason Stop Dose Admin Acetaminophen 650 mg 04/07/25 13:29 04/08/25 01:37 Acetaminophen 325 Mg Tablet PO 650 mg Q4H PRN Administration Mild Pain (1-3) or Fever Albuterol/Ipratropium 3 ml 04/07/25 14:00 04/08/25 02:16 Ipratropium 0.5 Mg/Albuterol Sulfate 2.5 Mg (Base) Ampul.Neb 3 Ml INHALATION 3 ml Q6HRT [facility] Administration Aspirin 81 mg 04/08/25 09:00 Aspirin 81 Mg Enteric Tablet PO DAILY [facility] Atenolol 25 mg 04/07/25 13:35 04/07/25 14:36 Atenolol 25 Mg Tablet PO Not Given DAILY [facility] Atorvastatin Calcium 40 mg 04/08/25 09:00 Atorvastatin 40 Mg Tablet PO DAILY [facility] Docusate Sodium 100 mg 04/07/25 13:29 Docusate Sodium 100 Mg Capsule PO BID PRN Constipation Enoxaparin Sodium 30 mg 04/08/25 09:00 Enoxaparin 30 Mg/0.3 Ml Syringe SUB-Q DAILY [facility] Famotidine 10 mg 04/07/25 14:00 04/07/25 21:01 Famotidine 10 Mg Tablet PO Not Given Q12HR [facility] Guaifenesin 1,200 mg 04/07/25 21:00 04/07/25 21:00 Guaifenesin 12 Hr 600 Mg Tabcr PO 1,200 mg Q12HR [facility] Administration Nicotine 1 patch 04/08/25 09:00 Nicotine (*Pbkc) 21 Mg Patch TRANSDERM DAILY [facility] Pantoprazole Sodium 40 mg 04/08/25 09:00 Pantoprazole 40 Mg Tablet PO QAM [facility] Prednisone 40 mg 04/08/25 08:00 Prednisone 20 Mg Tablet PO 04/13/25 07:59 DAILY@0800 [facility] Radiology Results: ITS Impressions Chest X-Ray 04/07/25 10:26 IMPRESSION: 1. No acute cardiopulmonary findings given portable technique. Labs Labs: Laboratory Results - last 24 hr 04/07/25 04/07/25 09:12 09:27 WBC 8.5 RBC 4.66 Hgb 15.1 H D Hct 46.0 MCV 98.7 MCH 32.4 MCHC 32.8 RDW 12.7 Plt Count 225 MPV 10.2 Immature Gran % (Auto) 0.4 Neut % (Auto) 72.8 Lymph % (Auto) 20.4 [place] % (Auto) 5.4 Eos % (Auto) 0.8 Baso % (Auto) 0.2 Lymph # (Auto) 1.73 [place] # (Auto) 0.5 Eos # (Auto) 0.1 Baso # (Auto) 0.0 Abs Immat Gran (auto) 0.03 Absolute Neuts (auto) 6.2 Absolute Nucleated RBC 0.000 Nucleated RBC % 0.0 Sodium 138 Potassium 4.5 Chloride 100 Carbon Dioxide 28 Anion Gap 10 BUN 18 H Creatinine 0.77 Estim Creat Clear Calc 28 Estimated GFR > 60 Glucose 98 Lactic Acid 1.4 Calcium 10.1 Total Bilirubin 0.6 AST 42 H ALT 29 Alkaline Phosphatase 110 Total Protein 8.1 Albumin 4.5 Influenza A (RT-PCR) Negative Influenza B (RT-PCR) Negative RSV (RT-PCR) Negative SARS-CoV-2 RNA (RT-PCR) Negative Quality VTE Prophylaxis VTE prophylaxis: mechanical ordered and pharmacologic ordered
[2025-04-08 08:20] LABS: Hematocrit 37.8 % (37.0-47.0); Hemoglobin 12.1 g/dL (12.0-15.0); Immature Granulocyte Percent A 0.4 % (0-0.5); Lymphocytes Absolute Auto 1.24 K/mm3 (0.9-3.2); Mean Corpuscular HGB Conc 32.0 g/dl (32-36); Mean Corpuscular Hemoglobin 32.2 pg (26-34); Mean Corpuscular Volume 100.5 fl (80-100); Nucleated Red Blood Cells Absolute Auto 0.000 K/mm3 (0.0-0.012); Nucleated Red Blood Cells Perc 0.0 % (0.0-0.2); Platelet Count Result 164 k/mm3 (150-375); Red Blood Count 3.76 M/mm3 (4.2-5.4); White Blood Count 10.9 K/mm3 (4.5-10.0)
[2025-04-08 08:34] LABS: Anion Gap 9 mmol/L (4-12); Blood Urea Nitrogen 20 mg/dL (7-17); Calcium 9.7 mg/dL (8.4-10.2); Carbon Dioxide 24 mmol/L (22-30); Chloride 103 mmol/L (98-107); Estimated CRCL calculation 32 ml/min; Estimated Glomerular Filt Rate > 60; Glucose 96 mg/dL (65-110); Potassium 4.2 mmol/L (3.4-5.0); Sodium 136 mmol/L (137-145)
[2025-04-08] MEDS: ATORVASTATIN 40 MG TABLET PO (08:51)
[2025-04-08] MEDS: ASPIRIN 81 MG ENTERIC TABLET PO (08:51)
[2025-04-08] MEDS: FAMOTIDINE 10 MG TABLET PO ×2 (08:51→20:12)
[2025-04-08] MEDS: guaiFENesin 12 HR 600 MG TABCR 1200 MG PO ×2 (08:51→20:12)
[2025-04-08] MEDS: PANTOPRAZOLE 40 MG TABLET PO (08:52)
[2025-04-08] MEDS: NICOTINE (*PBKC) 21 MG PATCH 1 PATCH TRANSDERM (08:52)
[2025-04-08] MEDS: ENOXAPARIN 30 MG/0.3 ML SYRINGE SUB-Q (08:52)
[2025-04-09] VITALS (8 sets, daily range): BP systolic 138–147; BP diastolic 67–85; PULSE 72–96; RESP 16–20; TEMP 36.2–36.7; O2SAT 92–94; BMI 11.6
[2025-04-09] MEDS: IPRATROPIUM 0.5 MG/ALBUTEROL SULFATE 2.5 MG (BASE) AMPUL.NEB 3 ML INHALATION ×2 (01:16→08:08)
[2025-04-09 05:54] LABS: Hematocrit 33.8 % (37.0-47.0); Hemoglobin 11.2 g/dL (12.0-15.0); Immature Granulocyte Percent A 0.5 % (0-0.5); Lymphocytes Absolute Auto 1.21 K/mm3 (0.9-3.2); Mean Corpuscular HGB Conc 33.1 g/dl (32-36); Mean Corpuscular Hemoglobin 32.0 pg (26-34); Mean Corpuscular Volume 96.6 fl (80-100); Nucleated Red Blood Cells Absolute Auto 0.000 K/mm3 (0.0-0.012); Nucleated Red Blood Cells Perc 0.0 % (0.0-0.2); Platelet Count Result 191 k/mm3 (150-375); Red Blood Count 3.50 M/mm3 (4.2-5.4); White Blood Count 12.2 K/mm3 (4.5-10.0)
[2025-04-09 06:04] LABS: Alanine Aminotransferase 26 U/L (6-35); Albumin Level 3.4 g/dL (3.5-5.1); Alkaline Phosphatase 84 U/L (38-126); Anion Gap 7 mmol/L (4-12); Aspartate Amino Transferase 37 U/L (14-36); Bilirubin,Total 0.3 mg/dL (0.2-1.3); Blood Urea Nitrogen 15 mg/dL (7-17); Calcium 9.6 mg/dL (8.4-10.2); Carbon Dioxide 25 mmol/L (22-30); Chloride 104 mmol/L (98-107); Estimated CRCL calculation 33 ml/min; Estimated Glomerular Filt Rate > 60; Glucose 94 mg/dL (65-110); Potassium 3.8 mmol/L (3.4-5.0); Sodium 136 mmol/L (137-145); Total Protein 6.3 g/dL (6.3-8.2)
[2025-04-09] MEDS: ASPIRIN 81 MG ENTERIC TABLET PO (09:28)
[2025-04-09] MEDS: ATORVASTATIN 40 MG TABLET PO (09:28)
[2025-04-09] MEDS: FAMOTIDINE 10 MG TABLET PO (09:30)
[2025-04-09] MEDS: NICOTINE (*PBKC) 21 MG PATCH 1 PATCH TRANSDERM (09:30)
[2025-04-09] MEDS: guaiFENesin 12 HR 600 MG TABCR 1200 MG PO (09:30)
[2025-04-09] MEDS: ENOXAPARIN 40 MG/0.4 ML SYRINGE SUB-Q (09:31)
--- NOTE | 2025-04-09 13:00 | P.DS_ITS ---
DS: Admitting Diagnosis Discharge Date 04/09/2025 Admitting Diagnosis COPD exacerbation Acute respiratory failure with hypoxia HTN GERD HLD DS: Discharge Diagnosis Discharge Diagnosis (1) COPD exacerbation: Code(s): J44.1 - Chronic obstructive pulmonary disease with (acute) exacerbation Status: Acute Assessment and Plan: With possible pneumonia - ruled out s/p IV Rocephin and azithromycin DuoNebs Solu-Medrol x1 PO prednisone 40 mg daily Guaifenesin AM labs repeat CXR without acute findings discharge with PO prednisone x 3 days discharge with PO azithromycin x 5 days patient on room air and o2 saturations stable (2) Acute respiratory failure with hypoxia: Code(s): J96.01 - Acute respiratory failure with hypoxia Status: Acute Assessment and Plan: Wean oxygen as able Keep SpO2 between 88 and 92% patient had oxygen off when I entered the room, discussed with nurse to wean oxygen as able to room air patient was weaned to room air last evening, o2 saturations have remained stable (3) Hypertension: Code(s): I10 - Essential (primary) hypertension Status: Acute Assessment and Plan: Continue atenolol (4) GERD (gastroesophageal reflux disease): Code(s): K21.9 - Gastro-esophageal reflux disease without esophagitis Status: Acute Assessment and Plan: continue famotidine (5) Tobacco abuse: Code(s): Z72.0 - Tobacco use Status: Acute Assessment and Plan: Nicotine patch Patient counseled on smoking cessation (6) Hyperlipidemia: Code(s): E78.5 - Hyperlipidemia, unspecified Status: Acute Assessment and Plan: Continue statin DS: Summary Hospital Course Reason for hospitalization: COPD exacerbation Hospital Course: The patient is a 64-year-old female with a history of COPD, hypertension, GERD, hyperlipidemia, and significant tobacco use, who was admitted with worsening shortness of breath over the preceding week and a half. On admission, she was hypoxic and required 3 L nasal cannula oxygen. Initial evaluation included negative viral testing (influenza A/B, RSV, COVID), a chest x-ray showing hyperinflated lungs without acute infiltrate, and laboratory studies notable for stable hemoglobin, mild transaminitis, and no leukocytosis. She was started on IV Rocephin and azithromycin for possible pneumonia, which was subsequently ruled out, as well as DuoNebs, a single dose of IV Solu-Medrol, and transitioned to oral prednisone. Guaifenesin was added for secretion management. Her oxygen requirements were gradually weaned, and she was able to maintain stable oxygen saturations on room air by the evening prior to discharge. Repeat chest x-ray showed no acute findings. Her hypertension was managed with continued atenolol, and her GERD and hyperlipidemia were managed with famotidine and atorvastatin, respectively. She was counseled extensively on smoking cessation and started on a nicotine patch during her hospitalization. The patient remained clinically stable throughout her stay, with improvement in respiratory symptoms, and was discharged on a short course of oral prednisone , PRN albuterol inhaler and azithromycin, with instructions to continue her home medications. She was stable on room air at the time of discharge. Time Spent with Patient Time attestation: Total time spent providing and/or coordinating discharge services: 35 Minutes Exam Narrative: General: well appearing, appears older than stated age. Frail looking HEENT: normocephalic, atraumatic. Mucous membranes moist. EOMI, no conjunctival injection. Neck supple Respiratory: Diminished bilaterally. No rales/rhonic/wheezes. Cardiovascular: Regular rate and rhythm, normal S1-S2. No murmurs, rubs, or clicks. Abdomen: Soft, round, no pulsatile masses, nondistended and nontender. No rebound, no guarding. Bowel sounds present to all four quadrants. Extremities: No cyanosis, clubbing, or edema present. Active ROM to all four extremities. Neuro: Alert and orientated x 4. PERRLA Skin: Warm, dry, and intact, without rash, erythema, or lesion. Psych: pleasant, cooperative, normal speech, normal affect, no hallucinations, no dysarthia DS: Data Data Completed and Pending Labs on day of discharge: Labs from last 24 hours 04/09/25 05:02 WBC 12.2 H RBC 3.50 L Hgb 11.2 L Hct 33.8 L MCV 96.6 MCH 32.0 MCHC 33.1 RDW 12.4 Plt Count 191 MPV 10.0 Immature Gran % (Auto) 0.5 Neut % (Auto) 86.2 H Lymph % (Auto) 9.9 L [place] % (Auto) 3.3 Eos % (Auto) 0.0 Baso % (Auto) 0.1 L Lymph # (Auto) 1.21 [place] # (Auto) 0.4 Eos # (Auto) 0.0 Baso # (Auto) 0.0 Abs Immat Gran (auto) 0.06 H Absolute Neuts (auto) 10.5 H Absolute Nucleated RBC 0.000 Nucleated RBC % 0.0 Sodium 136 L Potassium 3.8 Chloride 104 Carbon Dioxide 25 Anion Gap 7 BUN 15 D Creatinine 0.66 L Estim Creat Clear Calc 33 Estimated GFR > 60 Glucose 94 Calcium 9.6 Total Bilirubin 0.3 AST 37 H ALT 26 Alkaline Phosphatase 84 Total Protein 6.3 Albumin 3.4 L Discharge Plan Discharge Attending physician on discharge: Shavon Lazcano Discharging Clinician: Kaylynn Rogel Patient Disposition: Home Activity: as tolerated Diet: heart healthy Patient Instructions: Antibiotic Form, How to Stop Smoking (ED), COPD (Chronic Obstructive Pulmonary Disease) (GEN), Pneumonia (GEN) Patient Language: Burkinan Stand Alone Forms: General Discharge Information Follow-up/Referrals: Mitra,Ozzy Hines, PA [Primary Care Provider] Referral Note: Please call for an appointment to be seen within 1-2 weeks of discharge. Discharge Medications: New prednisone 20 mg Tablet 40 mg PO DAILY@0800 Qty: 6 0RF guaifenesin [Mucus Relief ER] 600 mg Tablet Extended Release 12hr 1,200 mg PO Q12HR Qty: 30 0RF azithromycin [Zithromax] 250 mg tablet See Rx Instructions .ROUTE .COMPLEX Qty: 6 0RF Rx Instructions: For 250 mg dose pack: take 500 mg today (day 1), then 250 mg for 4 days (days 2-5) albuterol sulfate [Ventolin HFA] 90 mcg/actuation HFA aerosol inhaler 2 puff inhalation QID PRN (Reason: shortness of breath or wheezing) Qty: 6.7 0RF Continued aspirin 81 mg tablet,delayed release (DR/EC) 81 mg PO DAILY atenolol 25 mg tablet 25 mg PO DAILY atorvastatin 40 mg tablet 40 mg PO DAILY famotidine 10 mg tablet 10 mg PO Q12H Date of admission: 04/07/25 12:12 Primary Care Provider: ColeOzzy Admitting Provider: Osmany Lucas Attending physician on admission: Osmany Lucas Condition: Stable Quality VTE Prophylaxis VTE prophylaxis: mechanical ordered and pharmacologic ordered
--- NOTE | 2025-04-11 11:26 | PC.NURSE ---
This RN performed d/c phone call at this time and pt inquired about two prescriptions not being filled by the pharmacy. This RN stated to call [facility] and followup with them or primary care. Pt also expressed not feeling well and this RN stated that medical advice could not be given over the phone but if she thought she needed to be seen at urgent care or the ER they would be happy to care for her.
== END 2025-04-09 14:24 | disposition home or self-care (01) | DRG 190 ==
LOC: ANHED 11:31 → ANH3MEDSUR 12:30
PROVIDERS: Nurse Practitioner Gerontology; Admitting Provider Internal Medicine; Emergency Provider Student in an Organized Health Care Education/Training Program; PCP Physician Assistant; Visit Provider Nurse Practitioner Adult Health
DX: J44.1 Chronic obstructive pulmonary disease with (acute) exacerbation (principal); J96.01 Acute respiratory failure with hypoxia; K21.9 Gastro-esophageal reflux disease without esophagitis; E78.5 Hyperlipidemia, unspecified; I10 Essential (primary) hypertension; Z20.822 Contact with and (suspected) exposure to COVID-19; F17.210 Nicotine dependence, cigarettes, uncomplicated; F12.90 Cannabis use, unspecified, uncomplicated; Z79.2 Long term (current) use of antibiotics; Z79.82 Long term (current) use of aspirin
CPT/HCPCS: 36415; 71045; 71046; 80048; 80053; 83605; 85025; 87637; 93005; 94640; 96365; 96375; 99285; A9270; J0696; J1650; J2919; J7512

== ENCOUNTER 2025-04-17 15:49 | Emergency (ER) | payer MEDICARE, SELFPAY ==
[2025-04-17] VITALS (7 sets, daily range): BP systolic 144–169; BP diastolic 65–85; PULSE 57–78; RESP 18–20; TEMP 36.6; O2SAT 91–98
--- NOTE | ~2025-04-17 | XR_ITS ---
EXAMINATION: XR chest 2V DATE: 04/17/2025 16:41 INDICATION: Shortness of breath. TECHNIQUE: Frontal and lateral views of the chest were obtained. COMPARISON: Chest x-ray 04/09/2025 FINDINGS: Severe emphysema both lungs are noted again. No acute pulmonary lesions. Atherosclerotic aorta. IMPRESSION: 1. Severe emphysematous lungs similar to prior chest x-ray. Reviewed, dictated and finalized at location T. ATIONAL RESOURCE COORDINATOR
--- NOTE | 2025-04-17 16:17 | ECG_ITS ---
Test Date: 2025-04-17 16:26:29 Measurements Intervals [place] Rate: 62 P: 84 NV: 113 QRS: 85 QRSD: 93 T: 61 QT: 409 QTc: 417 Interpretive Statements SINUS RHYTHM WITH SHORT NV INTERVAL MINOR T-WAVE ABNORMALITY BORDERLINE ECG Compared to ECG 04/07/2025 08:50:07 T-wave abnormality no longer present Electronically Signed On 04-17-2025 17:38:37 DENTAL SERVICES DIRECTOR by Herb Avalos M.D.
[2025-04-17 16:43] LABS: Hematocrit 42.1 % (37.0-47.0); Hemoglobin 13.6 g/dL (12.0-15.0); Immature Granulocyte Percent A 0.7 % (0-0.5); Lymphocytes Absolute Auto 2.39 K/mm3 (0.9-3.2); Mean Corpuscular HGB Conc 32.3 g/dl (32-36); Mean Corpuscular Hemoglobin 31.7 pg (26-34); Mean Corpuscular Volume 98.1 fl (80-100); Nucleated Red Blood Cells Absolute Auto 0.000 K/mm3 (0.0-0.012); Nucleated Red Blood Cells Perc 0.0 % (0.0-0.2); Platelet Count Result 257 k/mm3 (150-375); Red Blood Count 4.29 M/mm3 (4.2-5.4); White Blood Count 10.3 K/mm3 (4.5-10.0)
[2025-04-17 16:56] LABS: Alanine Aminotransferase 24 U/L (6-35); Albumin Level 4.0 g/dL (3.5-5.1); Alkaline Phosphatase 69 U/L (38-126); Anion Gap 5 mmol/L (4-12); Aspartate Amino Transferase 41 U/L (14-36); Bilirubin,Total 0.3 mg/dL (0.2-1.3); Blood Urea Nitrogen 19 mg/dL (7-17); Calcium 9.5 mg/dL (8.4-10.2); Carbon Dioxide 33 mmol/L (22-30); Chloride 100 mmol/L (98-107); Estimated CRCL calculation 29 ml/min; Estimated Glomerular Filt Rate > 60; Glucose 69 mg/dL (65-110); Potassium 3.7 mmol/L (3.4-5.0); Sodium 138 mmol/L (137-145); Total Protein 7.0 g/dL (6.3-8.2)
--- OUTSIDE RECORDS SUMMARY | 2025-04-17 17:16 | XMS_ITS | Clinical Summary ---
Author Organization [facility] Address [address] [place] [address] Care Team Providers Care Appointment Clerk Name Role Phone Ozzy Manriquez Primary Care Provider [phone] Source Comments [facility],non-owned Affiliates and Associated Physician Practices is amultiple site organization consisting of ambulatory clinics and hospital sitesin [place], [place], [place] and [place]. This disclosure is being madepursuant to the Care Everywhere program and may not contain all information available regarding this patient. Last updated 18.[facility] Allergies No known active allergies Medications * Be aware that medications may not be up to date on this document. Alwaysverify current medications with the patient. atenolol (Tenormin) 25 MG tablet Take 1 (one) tablet by mouth once daily Active Aspirin-Acetamin ophen-Caffeine (HEADACHE FORMULA PO) Take 1 tablet by mouth once daily as needed Active aspirin EC (Aspirin 81) 81 MG tabletIndication s:Cerebrovascula r accident (CVA), unspecified mechanism (HCC) Take 1 (one) tablet by mouth once daily 30 tablet 11 07/14/2023 Active atorvastatin (Lipitor) 40 MG tablet Take 1 (one) tablet by mouth once daily 100 tablet 4 08/12/2023 Active Active Problems Problem Noted Date Diagnosed Date Seizure-like activity 05/02/2024 Family History Medical History Relation Name Comments Cancer - Breast Maternal Aunt Relation Name Status Comments Maternal Aunt Social History Tobacco Use Types Packs/Day Years Used Date Smoking Tobacco: Every Day Cigarettes Smokeless Tobacco: Never Tobacco Cessation:Ready to Q uit: Not Asked; Counseling Given: Not Answered Comments Unknown Sex and Gender Information Value Date Recorded Sex Assigned at Not on file Legal Sex Female 7:57 AM ETL APPLICATION DEVELOPER Gender Identity Not on file Sexual Orientation Not on file Last Filed Vital Signs Vital Sign Reading Time Taken Comments Blood Pressure 156/92 05/02/2024 1:16 PM ETL APPLICATION DEVELOPER Pulse 62 05/02/2024 1:16 PM ETL APPLICATION DEVELOPER Temperature - - Respiratory Rate 12 10/25/2023 10:47 AM CDT Oxygen Saturation - - Inhaled Oxygen Concentration - - Weight 30.8 kg (68 lb) 05/02/2024 1:16 PM ETL APPLICATION DEVELOPER Height 157.5 cm (5' 2) 07/14/2023 11:01 AM ETL APPLICATION DEVELOPER Body Mass Index 12.44 07/14/2023 11:01 AM ETL APPLICATION DEVELOPER Plan of Treatment Health Maintenance Due Date Last Done Comments BONE DENSITY TESTING 1960 COLOGUARD (AGES 45-75) - COL ON CA SCREENING 1958 COLON MONITORING 1958 COLONOSCOPY - COLON CA SCREENING 1958 CT COLONOGRAPHY - COLON CA SCREENING 1960 Colorectal Cancer Screening 1958 FIT - COLON CA SCREENING 1958 FLEX SIG - COLON CA SCREENING 1960 MEDICARE AWV 12 MONTHS 1958 HEPATITIS C SCREENING 07/06/1976 DTAP/TDAP/TD VACCINES (1 - Tdap) 1977 PNEUMOCOCCAL VACCINE 50+ (1 of 2 - PCV) 1977 ZOSTER VACCINE (1 of 2) 2008 DEPRESSION SCREENING 05/24/2024 COVID-19 VACCINE (1 - 2024-2 6 season) 2025 INFLUENZA VACCINE (#1) 2025 MAMMOGRAM 07/26/2025 07/27/2023, 04/19/2018 Respiratory Syncytial Virus [...] patient's age to complete this topic MENINGOCOCCAL (Group B) VACCINE SHARED DECISION-MAKING Aged Out No longer eligible based on patient's age to complete this topic MENINGOCOCCAL GROUPS A/C/Y/W VACCINE Aged Out No longer eligible b ased on patient's age to complete this topic Procedures Procedure Name Priority Date/Time Associated Diagnosis Comments MAMMO BILAT SCREENING W CLAU Routine 07/27/2023 11:07 AM ETL APPLICATION DEVELOPER Screening due Screening mammogram for breast cancer from Last 3 Months or Most Recently Relevant to Health Maintenance Results * MAMMO BILAT SCREENING W CLAU (07/27/2023 11:07 AM ETL APPLICATION DEVELOPER) Anatomical Region Laterality Modality Breast Bilateral Mammography 07/27/2023 2:38 PM ETL APPLICATION DEVELOPER Impressions 07/27/2023 3:56 PM ETL APPLICATION DEVELOPER : No mammographic evidence of malignancy. Extremely dense breast parenchyma. RECOMMENDATION: 1. Screening mammography in one year, pending no interval breast concerns. 2. Given the extremely dense breast parenchyma, consider annual complete breast ultrasound or breast MRI scan for supplemental screening. OVERALL ASSESSMENT: BI-RADS CATEGORY 1: NEGATIVE. Report dictated by Clarke Kendrick MD, (vice president of nursing). I, Veena Snowden DO have personally reviewed and interpreted this examination/study. > Interpreting Provider: Veena Snowden DO on 07/27/2023 3:56 PM Narrative 07/27/2023 3:56 PM ETL APPLICATION DEVELOPER EXAMINATIONS: BILATERAL DIGITAL SCREENING MAMMOGRAM AND BILATERAL BREAST TOMOSYNTHESIS WITH CAD LOCATION: [facility] EXAM DATE: 07/27/2023 HISTORY: Screening. Family history of breast cancer in maternal aunt. RISK ASSESSMENT CALCULATION: Not performed as tablets currently not available due to pending upgrade. COMPARISON: Outside bilateral screening mammogram dated 04/19/2018 TECHNIQUE: Tomosynthesis (3D) and reconstructed synthetic 2-D images acquired and reviewed in the bilateral craniocaudal and mediolateral oblique projections. A total of 4 images obtained. Computer-aided detection (CAD) was utilized. BREAST PARENCHYMAL COMPOSITION: Category D: The breasts are extremely dense which lowers the sensitivity of mammography. FINDINGS: There are no suspicious findings or evidence of malignancy on mammography. There is no significant change from the prior. us Chen Cano PA-C MAMMO ORDERABLES Final Re sult from Last 3 Months or Most Recently Relevant to Health Maintenance Insurance MEDICARE Care Teams Appointment Clerk Relationship Specialty Start Date End Date Ozzy Manriquez PA [address] [place] [address] PCP - General Physician Truss Designer 03/22/23
--- OUTSIDE RECORDS SUMMARY | 2025-04-17 17:16 | XMS_ITS | Clinical Summary ---
Author Organization [facility] Address [address] [place] [address] Phone Care Team Providers Care Helper Animal Laboratory Name Role Phone Ozzy Manriquez Primary Care Provider [phone] Social History Tobacco Use Types Packs/Day Years Used Date Smoking Tobacco: Never Assessed Comments Unknown Sex and Gender Information Value Date Recorded Sex Assigned at Not on file Legal Sex Female 1:51 PM NEURO UROLOGIST Gender Identity Not on file Sexual Orientation Not on file Plan of Treatment Health Maintenance Due Date Last Done Comments Hepatitis C Virus (HCV) Screening 1960 TdaP Immunization 1958 Cologuard 2003 Colonoscopy 2003 Colorectal Cancer Screening 2003 Immunochemical Fecal Occult Blood 2003 Pneumococcal Immunization (5 0+ years) (1 of 1 - PCV) 2008 Zoster Immunization (1 of 2) 2008 Influenza Immunization (#1) 2025 SARS-COV-2 Immunization ( - 2024- season) 2025 04/25/2021, 08/30/2020, 07/26/2020 Respiratory Syncytial Virus (RSV) Immunization (Adult) (1 - 1-dose 75+ series) 2033 Mammogram Discontinued 04/19/2018 Hepatitis B Immunization Aged Out No longer eligible based on patient's age to complete this topic Human Papillomavirus (HPV) Immunization Aged Out No longer eligible based on patient's age to complete this topic Meningococcal Immunization (ACWY) Aged Out No longer eligible based on patient's age to complete this topic Rotavirus Immunization Aged Out No lo nger eligible based on patient's age to complete this topic Procedures Procedure Name Priority Date/Time Associated Diagnosis Comments DERRICK SCREENING BILATERAL DIGITAL W CAD Routine 04/19/2018 8:05 AM NEURO UROLOGIST Screening breast examination from Last 3 Months or Most Recently Relevant to Health Maintenance Results * DERRICK SCREENING BILATERAL DIGITAL W CAD (04/19/2018 8:05 AM NEURO UROLOGIST) Anatomical Region Laterality Modality breast Bilateral Mammography 04/19/2018 7:45 AM NEURO UROLOGIST Narrative 04/19/2018 10:25 AM NEURO UROLOGIST - DERRICK SCREENING BILATERAL DIGITAL W CAD [...] exam. Electronically signed by: Justa arroyo/bob:04/19/2018 10:04:21 Aviation Warfare Systems Operator: Christel Arechiga (R), [facility] letter sent: Normal Exam Reading location: [facility] BI-RADS: 1 Negative Procedure Note Justa Bowling [...] exam. Electronically signed by: Justa arroyo/bob:04/19/2018 10:04:21 Aviation Warfare Systems Operator: Christel Arechiga (R), [facility] letter sent: Normal Exam Reading location: [facility] BI-RADS: 1 Negative Ozzy CARTY IMG MAMMO ORDERABLES Final Re sult from Last 3 Months or Most Recently Relevant to Health Maintenance Care Teams Helper Animal Laboratory Relationship Specialty Start Date End Date Ozzy Manriquez, MACHELLE [address] [place] [id number] PCP - General Physician Pantomimist 04/05/18
[2025-04-17 17:19] LABS: Influenza A QL RT-PCR Negative (Negative); Influenza B QL RT-PCR Negative (Negative); RSV RNA, RT-PCR Negative (Negative); SARS-CoV-2 RNA PCR Negative (Negative)
--- NOTE | 2025-04-17 19:28 | ED.SOB ---
HPI - SOB/Dyspnea General Chief Complaint: Shortness of Breath/Dyspnea Stated Complaint: SHORT OF BREATH HX COPD Time Seen by Provider: 04/17/25 19:03 History of Present Illness HPI Narrative: 64-year-old female with history of COPD and chronic smoking about 1 pack per day presenting to the emergency department today with generalized malaise, fatigue and subjective shortness of breath. She was hospitalized last week for COPD exacerbation and discharged home after improvement. She completed her antibiotic course and patient did not eating for outpatient she did not have any pneumonia. No baseline oxygen requirements. Patient has no specific complaints and just states she does not feel well. Denies any cough, trouble breathing presently, chest pain, nausea, vomiting, abdominal pain. She states she feels weak all over but denies any focal complaints. Has not followed up with her PCP yet. states she sometimes feels good and then sometimes feels bad in the same day, no progressive or concrete symptoms. Related Data Home Medications ?Medication ?Instructions ?Recorded ?Confirmed ?Last Taken ?Type aspirin 81 mg tablet,delayed 81 mg PO DAILY 05/21/24 04/07/25 04/06/25 History release atenolol 25 mg tablet 25 mg PO DAILY 05/21/24 04/07/25 04/06/25 History atorvastatin 40 mg tablet 40 mg PO DAILY 05/21/24 04/07/25 04/06/25 History famotidine 10 mg tablet 10 mg PO Q12H 05/21/24 04/07/25 04/06/25 History Allergies Allergy/AdvReac Type Severity Reaction Status Date / Time No Known Allergies Allergy Verified 04/17/25 15:49 [facility] Past Medical History Medical History (Updated 04/18/25 @ 00:00 by Haydee Sanchez) GERD (gastroesophageal reflux disease) Hyperlipidemia Hypertension COPD (chronic obstructive pulmonary disease) Family History Family History Other Unknown family medical history Social History Social History Smoking packs per day: 1 Smoking cigarettes per day: 20.0 Years smoked: 50 Smoking pack-years: 50.00 Smoking status: Current every day smoker Tobacco type: cigarettes Second hand tobacco smoke exposure: Yes Alcohol intake: never Substance use: current Substance use type: marijuana Other substance usage details: [place] Vape Marijuana Last use: 04/06/25 Do You Feel Safe in your Home?: Yes Lack of Transportation: No Lack of Food: Never True Current Housing: I Do Not Have Housing Concerned About Future Housing: No Difficulty Paying Gas/Electric Bills: No Difficulty Paying for Meds: No Currently Unemployed: No Education: High School Diploma/GED Difficulty w/ Childcare or Family Care: No Spiritual care concerns: No Course Vital Signs Vital signs: Vital Signs Temperature 36.6 C 04/17/25 16:14 Pulse Rate 78 04/17/25 16:14 Respiratory Rate 18 04/17/25 16:14 Blood Pressure 152/65 H 04/17/25 16:14 Pulse Oximetry 92 04/17/25 16:14 Temperature 36.6 C 04/17/25 16:14 Pulse Rate 66 04/17/25 18:31 Respiratory Rate 20 04/17/25 18:31 Blood Pressure 155/80 H 04/17/25 18:31 Pulse Oximetry 95 04/17/25 18:31 Oxygen Delivery Room Air 04/17/25 16:29 MDM - SOB/Dyspnea MDM Narrative Medical decision making narrative: 64-year-old female with history of COPD and chronic smoking about 1 pack per day presenting to the emergency department today with generalized malaise, fatigue and subjective shortness of breath. She was hospitalized last week for COPD exacerbation and discharged home after improvement. She completed her antibiotic course and patient did not eating for outpatient she did not have any pneumonia. No baseline oxygen requirements. Patient has no specific complaints and just states she does not feel well. Denies any cough, trouble breathing presently, chest pain, nausea, vomiting, abdominal pain. She states she feels weak all over but denies any focal complaints. Has not followed up with her PCP yet. states she sometimes feels good and then sometimes feels bad in the same day, no progressive or concrete symptoms. Patient is overall well-appearing not any distress with normal vital signs. No oxygen requirements. No fever, tachypnea, tachycardia. Baseline hypertension without any significant concern. Clear breath sounds throughout without any wheezing or accessory muscle use. No prolonged expiratory phase. Patient most likely has viral syndrome rather than bacterial pneumonia or infection versus electrolyte derangements or dehydration. She has no complaints of nausea, vomiting, chest pain, diarrhea, fever. Chest x-ray, viral panel ordered, laboratory studies and urinalysis obtained which were all unremarkable. Patient discharged home with viral syndrome precautions and follow-up instructions with the PCP. Medical Records Attestation: I reviewed the patient's medical records. Lab Data Attestation: I reviewed the patient's lab results. 04/17/25 16:33 04/17/25 16:33 Labs: Lab Results 04/17/25 Range/Units 16:33 WBC 10.3 H (4.5-10.0) K/mm3 RBC 4.29 (4.2-5.4) M/mm3 Hgb 13.6 (12.0-15.0) g/dL Hct 42.1 (37.0-47.0) % MCV 98.1 (80-100) fl MCH 31.7 (26-34) pg MCHC 32.3 (32-36) g/dl RDW 12.3 (11.5-14.5) % Plt Count 257 (150-375) k/mm3 MPV 9.6 (7.4-10.4) fl Immature Gran % (Auto) 0.7 H (0-0.5) % Neut % (Auto) 67.0 (45.5-73.1) % Lymph % (Auto) 23.2 (18.3-44.2) % [place] % (Auto) 7.4 (2.6-8.5) % Eos % (Auto) 1.4 (0-4.4) % Baso % (Auto) 0.3 (0.2-1.2) % Lymph # (Auto) 2.39 (0.9-3.2) K/mm3 [place] # (Auto) 0.8 H (0.1-0.6) K/mm3 Eos # (Auto) 0.1 (0-0.3) K/mm3 Baso # (Auto) 0.0 (0.0-0.1) K/mm3 Abs Immat Gran (auto) 0.07 H (0.00-0.031) K/mm3 Absolute Neuts (auto) 6.9 H (1.3-6.7) K/mm3 Absolute Nucleated RBC 0.000 (0.0-0.012) K/mm3 Nucleated RBC % 0.0 (0.0-0.2) % Sodium 138 (137-145) mmol/L Potassium 3.7 (3.4-5.0) mmol/L Chloride 100 (98-107) mmol/L Carbon Dioxide 33 H (22-30) mmol/L Anion Gap 5 (4-12) mmol/L BUN 19 H (7-17) mg/dL Creatinine 0.72 (0.7-1.0) mg/dL Estim Creat Clear Calc 29 ml/min Estimated GFR > 60 (59 - ) Glucose 69 (65-110) mg/dL Calcium 9.5 (8.4-10.2) mg/dL Total Bilirubin 0.3 (0.2-1.3) mg/dL AST 41 H (14-36) U/L ALT 24 (6-35) U/L Alkaline Phosphatase 69 (38-126) U/L Total Protein 7.0 (6.3-8.2) g/dL Albumin 4.0 (3.5-5.1) g/dL Influenza A (RT-PCR) Negative (Negative) Influenza B (RT-PCR) Negative (Negative) RSV (RT-PCR) Negative (Negative) SARS-CoV-2 RNA (RT-PCR) Negative (Negative) Imaging Data Attestation: I personally reviewed and interpreted this imaging study as follows: My impression: Impressions Chest X-Ray 04/17/25 16:44 IMPRESSION: 1. Severe emphysematous lungs similar to prior chest x-ray. Discharge Plan Discharge Clinical Impression: Acute viral syndrome, COPD (chronic obstructive pulmonary disease) Patient Disposition: Home Condition: Stable Instructions: Antibiotic Form, Viral Syndrome (ED) Additional Instructions: Laboratory studies, EKG, chest x-ray are all reassuring. No signs or symptoms of active disease or bacterial infection. Symptoms most likely viral in nature. Follow-up with your regular primary care provider on a short-term basis. Take anti-inflammatory such as Tylenol or regular ibuprofen every 6-8 hours for some symptom control. Return with any emergent concerns. limit your smoking and try to quit at your earliest convenience as it is also only causing worsening deterioration of your lungs on a long-term basis which makes you more susceptible to viral syndromes and pneumonia. Patient Language: Azeri Prescriptions: No Action prednisone 20 mg Tablet 40 mg PO DAILY@0800 Qty: 6 0RF guaifenesin [Mucus Relief ER] 600 mg Tablet Extended Release 12hr 1,200 mg PO Q12HR Qty: 30 0RF azithromycin [Zithromax] 250 mg tablet See Rx Instructions .ROUTE .COMPLEX Qty: 6 0RF Rx Instructions: For 250 mg dose pack: take 500 mg today (day 1), then 250 mg for 4 days (days 2-5) albuterol sulfate [Ventolin HFA] 90 mcg/actuation HFA aerosol inhaler 2 puff inhalation QID PRN (Reason: shortness of breath or wheezing) Qty: 6.7 0RF aspirin 81 mg tablet,delayed release (DR/EC) 81 mg PO DAILY atenolol 25 mg tablet 25 mg PO DAILY atorvastatin 40 mg tablet 40 mg PO DAILY famotidine 10 mg tablet 10 mg PO Q12H Follow-up/Referrals: Mitra,JUVE Brian [Primary Care Provider] Time of Disposition: 19:27
--- OUTSIDE RECORDS SUMMARY | 2025-04-17 19:32 | XMS_ITS | Clinical Summary ---
Author Organization [facility] Address [address] [place] [address] Care Team Providers Care Inspector Publications Name Role Phone Ozzy Manriquez Primary Care Provider [phone] Source Comments [facility],non-owned Affiliates and Associated Physician Practices is amultiple site organization consisting of ambulatory clinics and hospital sitesin [place], [place], [place] and [place]. This disclosure is being madepursuant to the Care Everywhere program and may not contain all information available regarding this patient. Last updated 18.[facility] Allergies No known active allergies Medications * [...] on file Legal Sex Female 7:57 AM RAILROAD COMMISSIONER Gender Identity Not on file Sexual Orientation Not on file Last Filed Vital Signs Vital Sign Reading Time Taken Comments Blood Pressure 156/92 05/02/2024 1:16 PM RAILROAD COMMISSIONER Pulse 62 05/02/2024 1:16 PM RAILROAD COMMISSIONER Temperature - - Respiratory Rate 12 10/25/2023 10:47 AM CDT Oxygen Saturation - - Inhaled Oxygen Concentration - - Weight 30.8 kg (68 lb) 05/02/2024 1:16 PM RAILROAD COMMISSIONER Height 157.5 cm (5' 2) 07/14/2023 11:01 AM RAILROAD COMMISSIONER Body Mass Index 12.44 07/14/2023 11:01 AM RAILROAD COMMISSIONER Plan of Treatment Health Maintenance Due Date [...] SCREENING W CLAU Routine 07/27/2023 11:07 AM RAILROAD COMMISSIONER Screening due Screening mammogram for breast cancer from Last 3 Months or Most Recently Relevant to Health Maintenance Results * MAMMO BILAT SCREENING W CLAU (07/27/2023 11:07 AM RAILROAD COMMISSIONER) Anatomical Region Laterality Modality Breast Bilateral Mammography 07/27/2023 2:38 PM RAILROAD COMMISSIONER Impressions 07/27/2023 3:56 PM RAILROAD COMMISSIONER : No mammographic evidence of malignancy. Extremely dense breast parenchyma. RECOMMENDATION: 1. Screening mammography in one year, pending no interval breast concerns. 2. Given the extremely dense breast parenchyma, consider annual complete breast ultrasound or breast MRI scan for supplemental screening. OVERALL ASSESSMENT: BI-RADS CATEGORY 1: NEGATIVE. Report dictated by Clarke Kendrick MD, (vice president planning). I, Veena Snowden DO have personally reviewed and interpreted this examination/study. > Interpreting Provider: Veena Snowden DO on 07/27/2023 3:56 PM Narrative 07/27/2023 3:56 PM RAILROAD COMMISSIONER EXAMINATIONS: BILATERAL DIGITAL SCREENING MAMMOGRAM AND BILATERAL BREAST TOMOSYNTHESIS WITH CAD LOCATION: [facility] EXAM DATE: 07/27/2023 HISTORY: Screening. Family [...] to Health Maintenance Insurance MEDICARE Care Teams Inspector Publications Relationship Specialty Start Date End Date Ozzy Manriquez PA [address] [place] [address] PCP - General Physician Director Targeted Marketing 03/22/23
--- OUTSIDE RECORDS SUMMARY | 2025-04-17 19:33 | XMS_ITS | Clinical Summary ---
Author Organization [facility] Address [address] [place] [address] Phone Care Team Providers Care Natural Resources Faculty Member Name Role Phone Ozzy Manriquez Primary Care Provider [phone] Social History Tobacco Use Types Packs/Day Years Used Date Smoking Tobacco: Never Assessed Comments Unknown Sex and Gender Information Value Date Recorded Sex Assigned at Not on file Legal Sex Female 1:51 PM NATIONAL SALES DIRECTOR Gender Identity Not on file Sexual Orientation [...] DIGITAL W CAD Routine 04/19/2018 8:05 AM NATIONAL SALES DIRECTOR Screening breast examination from Last 3 Months or Most Recently Relevant to Health Maintenance Results * DERRICK SCREENING BILATERAL DIGITAL W CAD (04/19/2018 8:05 AM NATIONAL SALES DIRECTOR) Anatomical Region Laterality Modality breast Bilateral Mammography 04/19/2018 7:45 AM NATIONAL SALES DIRECTOR Narrative 04/19/2018 10:25 AM NATIONAL SALES DIRECTOR - DERRICK SCREENING BILATERAL DIGITAL W CAD [...] exam. Electronically signed by: Justa arroyo/bob:04/19/2018 10:04:21 Floor Care Specialist: Christel Arechiga (R), [facility] letter sent: Normal Exam Reading location: [facility] BI-RADS: 1 Negative Procedure Note Justa Bowling [...] exam. Electronically signed by: Justa arroyo/bob:04/19/2018 10:04:21 Floor Care Specialist: Christel Arechiga (R), [facility] letter sent: Normal Exam Reading location: [facility] BI-RADS: 1 Negative Ozzy CARTY IMG MAMMO ORDERABLES Final Re sult from Last 3 Months or Most Recently Relevant to Health Maintenance Care Teams Natural Resources Faculty Member Relationship Specialty Start Date End Date Ozzy Manriquez, MACHELLE [address] [place] [id number] PCP - General Physician Concrete Mixer Operator 04/05/18
== END 2025-04-17 19:59 | disposition home or self-care (01) ==
LOC: ANHED 19:31
PROVIDERS: Emergency Medicine; Emergency Provider Student in an Organized Health Care Education/Training Program; PCP Physician Assistant
DX: B34.9 Viral infection, unspecified (principal); J44.9 Chronic obstructive pulmonary disease, unspecified; Z20.822 Contact with and (suspected) exposure to COVID-19; I10 Essential (primary) hypertension; E78.5 Hyperlipidemia, unspecified; K21.9 Gastro-esophageal reflux disease without esophagitis; F17.210 Nicotine dependence, cigarettes, uncomplicated; Z79.899 Other long term (current) drug therapy; Z79.82 Long term (current) use of aspirin; R94.31 Abnormal electrocardiogram [ECG] [EKG]
CPT/HCPCS: 36415; 71046; 80053; 85025; 87637; 93005; 99284; A9270